=== PATIENT | female | born 1955 | race Caucasian/White ===

== ENCOUNTER → 2017-02-14 | Outpatient (CLI) | payer OTHER ==
[~2017-02-14] MED LIST: CALC500C3 PO; LOSA1TAB38 PO; MELA3TAB7 PO; MOBIC PO; NRN/300 PO; OXYC-106 PO; OXYC-643 PO; PEDICHW50 PO; RXC/5 PO
[2017-02-14 12:48] LABS: ALT/SGPT 22 U/L (12-78); AST/SGOT 19 U/L (15-37); BLOOD UREA NITROGEN 16 mg/dl (7-18); BUN/CREATININE RATIO 17.6 (10-20); CALCIUM 9.2 mg/dl (8.5-10.1); CARBON DIOXIDE 29 mmol/L (21-32); CHLORIDE 110 mmol/L (98-107); GLUCOSE 93 mg/dl (70-99); POTASSIUM 4.1 mmol/L (3.5-5.1); SODIUM 143 mmol/L (136-145)
[2017-02-14 12:52] LABS: ALB/GLOB RATIO 1.2 (0.9-2); ALKALINE PHOSPHATASE 65 U/L (45-117); CHOLESTEROL 210 mg/dl (0-200); CHOLESTEROL/HDL RATIO 3.3; HDL CHOLESTEROL 63 mg/dl; LDL CHOLESTEROL CALCULATED 128 mg/dl; TRIGLYCERIDES 96 mg/dl (0-150); VERY LOW DENSITY LIPOPROT CALC 19 mg/dl
== END | disposition home or self-care (01) ==
LOC: C.LABBFT 07:59
PROVIDERS: ATTEND Nurse Practitioner
DX: E78.5 Hyperlipidemia, unspecified (principal)

== ENCOUNTER → 2017-05-21 | Outpatient (CLI) | payer OTHER ==
[~2017-05-21] MED LIST changes: +OXYC-57 PO
--- NOTE | 2017-05-21 14:48 | MAMMOGRAPHY REPORT ---
BILATERAL DIGITAL SCREENING MAMMOGRAM TOMOSYNTHESIS WITH CAD PRE-REDUCTION MAMMOPLASTY: 05/21/2017 CLINICAL HISTORY: Asymptomatic Pre-Reduction. TECHNIQUE: Breast tomosynthesis in addition to standard 2D mammography was performed. Current study was also evaluated with a Computer Aided Detection (CAD) system. COMPARISON: Mammogram dated 07/22/2014. BREAST COMPOSITION: The tissue of both breasts is almost entirely fatty. FINDINGS: There are 2 stable intramammary lymph nodes in the right upper outer quadrant. A few scatt ered benign rim calcifications. No new suspicious mass, architectural distortion or cluster of micro calcifications is seen. IMPRESSION: ACR BI-RADS CATEGORY 1: NEGATIVE There is no mammographic evidence of malignancy. A 1 year screening mammogram is recommended. The pa tient will receive written notification of the results. Approximately 10% of breast cancers are not detected with mammography. A negative mammographic report should not delay biopsy if a clinically suggestive mass is present. Virginia Liu M.D. ay/:05/21/2017 14:13:41 Sausage Cooker: Jovanna IZQUIERDO(Kayy)(Lucretia)(NILDA), [facility] letter sent: Normal 1/2 BI-RADS Code: ACR BI-RADS Category 1: Negative
== END | disposition home or self-care (01) ==
LOC: C.MAMM 12:57
PROVIDERS: ATTEND Plastic Surgery
DX: Z12.31 Encounter for screening mammogram for malignant neoplasm of breast (principal)

== ENCOUNTER → 2017-06-02 | Outpatient (CLI) | payer OTHER ==
[~2017-06-02] MED LIST changes: -OXYC-57 PO
--- NOTE | 2017-06-02 13:47 | DIAGNOSTIC IMAGING REPORT ---
LUMBAR SPINE MRI HISTORY: Back pain. Neuropathy. LOW BACK PAIN, LUMBAR STENOSIS TECHNIQUE: Multiplanar multisequence MRI of the lumbar spine was performed without the use of contrast. COMPARISON: 08/17/2014 FINDINGS: For the purpose of the report the L5-S1 disc space will be located on axial image 22 of 25. Somewhat progressive degenerative disc change throughout the entire lumbar region. This is most prominent at L4-L5. Mild reactive edema of the associated vertebral endplates. There is minimal anterolisthesis of L5 on S1. This is unchanged in the prior study. L1-L2: Mild broad-based disc bulge similar compared to the prior study. L2-L3: No significant central canal or neural foraminal narrowing. L3-L4: Minimal broad-based disc bulge. L4-L5: Broad-based bulging disc with moderate narrowing of the left neuroforamina. This is unchanged L5-S1: Minimal disc bulge unchanged IMPRESSION: 1. L5 spondylolysis with a minimal grade 1 anterolisthesis. 2. This is stable and unchanged from the prior study. 3. Broad-based bulging disc L4-L5 with mild narrowing left neuroforamina. This is unchanged from the prior study. 4. No evidence for significant spinal stenosis Electronically signed by: Sandoval Phipps M.D. 06/02/2017 1:45 PM Dictated Date/Time: 06/02/2017 1:38 PM
== END | disposition home or self-care (01) ==
LOC: C.MRI 12:11
PROVIDERS: ATTEND Nurse Practitioner
DX: M48.06 Spinal stenosis, lumbar region (principal); M51.26 Other intervertebral disc displacement, lumbar region

== ENCOUNTER 2017-08-27 05:20 | Observation (INO) | payer OTHER ==
[2017-08-14 08:18] VITALS: BMI 36.0
--- NOTE | 2017-08-22 14:04 | PAT Medication Instructions ---
Service Date Aug 22, 2017. Current Home Medication List Calcium Carbonate (Tums), 1 DOSE PO UD PRN for reflux Gabapentin (Neurontin), 300 MG PO TID Losartan Potassium (Cozaar), 100 MG PO QAM Oxycodone/Acetaminophen 5MG/325MG (Oxycodone/Acetaminophen 5MG/325MG), 1 TABLET PO Q4H PRN for Pain Pediatric Multiple Vitamin W/ (Flintstones Chewable), 1 TAB PO QAM Medication Instructions For Your Scheduled Surgery - Hold the following medications the morning of surgery: Calcium Carbonate (Tums), 1 DOSE PO UD PRN for reflux Losartan Potassium (Cozaar), 100 MG PO QAM Pediatric Multiple Vitamin W/ (Flintstones Chewable), 1 TAB PO QAM - Take the following medications the morning of surgery with a sip of water: Gabapentin (Neurontin), 300 MG PO TID Oxycodone/Acetaminophen 5MG/325MG (Oxycodone/Acetaminophen 5MG/325MG), 1 TABLET PO Q4H PRN for Pain (if needed, may take up to four hours before surgery) - Take the following medications as scheduled the night before surgery: Gabapentin (Neurontin), 300 MG PO TID If you have any questions please call us at [phone] or [phone] or [phone]
[2017-08-22 14:22] LABS: BASO % 0.7 %; BASO ABS # 0.06 K/uL (0-0.2); COMPLETE YES; EOS % 4.4 %; HEMATOCRIT 42.7 % (37-47); IG% 0.2 %; LYMPH % 19.7 %; LYMPH ABS # 1.66 K/uL (1.2-3.4); MEAN CELL VOLUME 86.8 fL (80-100); MEAN CORPUSCULAR HEMOGLOBIN 29.7 pg (25-34); MEAN CORPUSCULAR HGB CONC 34.2 g/dl (32-36); MEAN PLATELET VOLUME 10.2 fL (7.4-10.4); MONO % 8.3 %; NEUT % 66.7 %; PLATELET COUNT 267 K/uL (130-400); RED BLOOD COUNT 4.92 M/uL (4.2-5.4); WHITE BLOOD COUNT 8.41 K/uL (4.8-10.8)
[2017-08-22 14:30] LABS: BUN/CREATININE RATIO 19.2 (10-20); CALCIUM 9.6 mg/dl (8.5-10.1); CREATININE 0.9 mg/dl (0.60-1.20); POTASSIUM 4.1 mmol/L (3.5-5.1)
[2017-08-27] VITALS (8 sets, daily range): BP systolic 111–135; BP diastolic 67–82; PULSE 59–69; TEMP 36.4–36.8; O2SAT 96–100; Ht 154.9 cm; Wt 85.9 kg
[~2017-08-27] VITALS: Ht 154.9 cm; Wt 85.9 kg
[~2017-08-27 05:20] MED LIST changes: -MELA3TAB7 PO; -MOBIC PO; -OXYC-106 PO; -RXC/5 PO
[2017-08-27] MEDS ORDERED: LACTATED RINGER'S 1000ML 1,000 ML IV SCH (06:00)
[2017-08-27] MEDS ORDERED: CEFAZOLIN 2000 MG/60 ML D5W IV SCH (06:00)
[2017-08-27] MEDS ORDERED: ENOXAPARIN 40 MG/0.4 ML SYR SQ SCH (06:00)
--- NOTE | 2017-08-27 06:47 | History & Physical Bridge Note ---
H&P Re-Evaluation Bridge Note: I have examined the patient, reviewed the History & Physical and in the interval since the performance of the History & Physical I have noted the following changes of clinical significance: No changes noted
[2017-08-27] MEDS ORDERED: BUPIVACAINE 0.25% 30 ML VIAL ONE (06:55)
[2017-08-27] MEDS ORDERED: LIDOCAINE/EPINEPHRINE 1% 20 ML VIAL ONE (06:55)
[2017-08-27] MEDS ORDERED: ONDANSETRON INJ 2 MG/ML 2 ML VIAL ONE ×2 (07:17→11:15)
[2017-08-27] MEDS ORDERED: ROCURONIUM BROMIDE 10 MG/ML 5 ML VIAL IV ONE (07:17)
[2017-08-27] MEDS ORDERED: NEOSTIGMINE METHYLSULFATE 5 MG/5 ML SYR ONE (07:17)
[2017-08-27] MEDS ORDERED: DEXAMETHASONE SOD INJ 4 MG/ML VIAL ONE (07:17)
[2017-08-27] MEDS ORDERED: FENTANYL CITRATE INJ 50 MCG/1 ML 2 ML VIAL ONE ×2 (07:17→11:24)
[2017-08-27] MEDS ORDERED: PROPOFOL IV EMULSION 10 MG/ML 20 ML VIAL IV ONE (07:17)
[2017-08-27] MEDS ORDERED: LIDOCAINE HCL 2% 2 ML VIAL (20MG/ML) ONE (07:17)
[2017-08-27] MEDS ORDERED: GLYCOPYRROLATE INJ 0.2 MG/ML VIAL ONE (07:17)
[2017-08-27] MEDS ORDERED: MIDAZOLAM HCL 1 MG/ML 2ML VIAL ONE (07:17)
[2017-08-27] MEDS ORDERED: HYDROmorphone INJ 2 MG/ML SYR/VIAL ONE (08:13)
[2017-08-27] MEDS ORDERED: ACETAMINOPHEN 1000 MG/100 ML IV IV ONE (09:19)
--- NOTE | 2017-08-27 11:16 | [facility] Post Operative Brief Note ---
Immediate Operative Summary Operative Date Aug 27, 2017. Pre-Operative Diagnosis Breast Hypertrophy Post-Operative Diagnosis same Procedure(s) Performed Bilateral Breast Reduction Surgeon Dr. Olsen Performance Improvement Director Surgeon(s) none Estimated Blood Loss 50 ML Findings bilateral NAC's pink and viable Specimens fresh a. Left Breast Tissue 640g- Out of room at: 0911 b. Right Breast Tissue 360g- Out of room at: 1029 Drains JPx2 Anesthesia GET Complication(s) None Disposition Recovery Room / PACU
[2017-08-27] MEDS ORDERED: OXYC-643 PO (11:26)
--- NOTE | 2017-08-27 11:29 | Discharge Instructions ---
Discharge Instructions Date of Service Aug 27, 2017. Admission Reason for Admission: Bilateral Symptomatic Macromastia Discharge Discharge Diagnosis / Problem: macromastia Discharge Goals Goal(s): Decrease discomfort, Improve function Activity Recommendations Activity Limitations: per Instructions/Follow-up section . Instructions / Follow-Up Instructions / Follow-Up ACTIVITY RECOMMENDATIONS: __Normal activities _x_No bending, lifting or straining __No driving _x_Driving allowed when you are off pain medications _x_Walking permitted __You should have help at home for ___ days DRESSINGS: __No dressings required _x_Keep dressings dry/in place until first office visit __Remove dressings ___ and leave dressings off __Apply ice ___ days __Remove dressings and reapply garment __Apply antibiotic ointment (Bacitracin, Neosporin, etc) to wounds 3-4 times/ day for 10 days BATHING: _x_Keep dressings dry __xSponge bathing permitted __Showering permitted _x_No swimming, hot tubs or soaking in a tub MEDICATIONS: Resume previous medications unless instructed otherwise by your surgeon. _x_Do not use aspirin, Motrin, Advil or Ibuprofen as these may promote bleeding. Please use Tylenol. _x_Prescription(s) provided: Percocet (20 tabs to be used to supplement usual Percocet dose) OTHER INSTRUCTIONS: __Record drain output 2-3 times per day SPECIAL CARE INSTRUCTIONS: * It is normal to have a mild fever after surgery. If your temperature is higher than 101.5 degrees F, please call the office at [phone]. * Constipation is a typical side effect of pain medication. An over-the- counter stool softener will help relieve this. * Leaking around surgical drains may occur and should not cause concern. Sometimes these drains become clogged. If this happens, remove the bulb and milk the clot out of the tube, then replace the bulb. * Drainage from wounds after liposuction is normal and should be expected. Garments will become soiled. You should protect furniture and bedding. This drainage should mostly subside within 2-3 days. Leave garments in place unless instructed to remove them. * If you have unusual drainage from a wound or are concerned you have an infection or have any questions or concerns, please call the office at [phone]. FOLLOW UP VISIT: If not already scheduled, please call the office, , when you return home after surgery to schedule an appointment to be seen in _2__ days. Current Hospital Diet Patient's current hospital diet: Regular Diet Discharge Diet Recommended Diet: Regular Diet Procedures Procedures Performed: Bilateral Breast Reduction Pending Studies Studies pending at discharge: no Medical Emergencies . Who to Call and When: Medical Emergencies: If at any time you feel your situation is an emergency, please call 911 immediately. . Non-Emergent Contact Non-Emergency issues call your: Primary Care Provider, Surgeon Call Non-Emergent contact if: temperature is above 101.5, wound has increased drainage, wound has increased redness . "Provider Documentation" section prepared by Carolynn Olsen. . VTE Core Measure Inpt VTE Proph given/why not?: Enoxaparin (Lovenox) [place] Drug Monitoring Program Search Results: patient reviewed within database, see additional documentation (Patient has pain contract with [place] office-Dr. Mays called us and said ok to give additional Percocet. No other issues identified.)
[2017-08-27] MEDS ORDERED: MoRPHine SULFATE 2 MG/ML CARP IV PRN (11:30)
[2017-08-27] MEDS ORDERED: PROMETHAZINE HCL INJ 12.5 MG in SODIUM CHLORIDE 0.9% 50ML 50 ML IV PRN ×2 (11:30→11:45)
[2017-08-27] MEDS ORDERED: MoRPHine SULFATE 4 MG/ML 1 ML CARP\\VIAL IV PRN ×2 (11:30)
[2017-08-27] MEDS ORDERED: ONDANSETRON INJ 2 MG/ML 2 ML VIAL IV PRN ×2 (11:30→11:45)
[2017-08-27] MEDS ORDERED: DiphenhydrAMINE HCL 50 MG/ML VIAL IV PRN (11:30)
[2017-08-27] MEDS ORDERED: OXYCODONE/ACETAMINOPHEN 5-325 TAB PO PRN (11:30)
[2017-08-27] MEDS ORDERED: OXAZEPAM 10MG CAP PO PRN (11:30)
[2017-08-27] MEDS ORDERED: CALCIUM CARBONATE 500 MG CHEWABLE PO PRN (11:30)
[2017-08-27] MEDS ORDERED: NALOXONE HCL 0.4 MG/1 ML VIAL/CARP IV PRN (11:45)
[2017-08-27] MEDS ORDERED: ATROPINE SULFATE 0.1 MG/ML 5ML SYR IV PRN (11:45)
[2017-08-27] MEDS ORDERED: EpHEDrine SULFATE INJ 50 MG/ML AMP IV PRN (11:45)
[2017-08-27] MEDS ORDERED: FLUMAZENIL 0.1 MG/1 ML 10 ML VIAL IV PRN (11:45)
[2017-08-27] MEDS ORDERED: LABETALOL HCL IV 5 MG/ML 20ML IV PRN (11:45)
[2017-08-27] MEDS: HYDROmorphone INJ 1 MG/ML SYR IV PRN ×4 (11:48→12:10)
--- NOTE | 2017-08-27 12:19 | Anesthesiology Progress Note ---
Anesthesia Post Op Note Date & Time Aug 27, 2017 at 12:19 Vital Signs Pain Intensity: 3 Vital Signs Past 12 Hours Date Time Temp Pulse Resp B/P (MAP) Pulse Ox O2 Delivery O2 Flow Rate FiO2 08/27/17 12:10 36.1 62 14 142/79 100 Nasal Cannula 2 08/27/17 12:00 67 17 145/78 100 Nasal Cannula 2 08/27/17 11:50 71 16 137/76 100 Oxymask 5 08/27/17 11:40 69 16 144/77 100 Oxymask 5 08/27/17 11:31 36.0 81 16 142/76 100 Oxymask 10 08/27/17 05:48 36.8 69 18 121/67 (85) 97 Room Air Notes Mental Status: alert / awake / arousable, participated in evaluation Pt Amnestic to Procedure: Yes Nausea / Vomiting: adequately controlled Pain: adequately controlled Airway Patency, RR, SpO2: stable & adequate BP & HR: stable & adequate Hydration State: stable & adequate Anesthetic Complications: no major complications apparent
--- NOTE | 2017-08-27 12:51 | OPERATIVE REPORT ---
DATE OF OPERATION: 08/27/2017 PREOPERATIVE DIAGNOSIS: Bilateral symptomatic macromastia. POSTOPERATIVE DIAGNOSIS: Same. PROCEDURE: Bilateral reduction mammoplasty. SURGEON: Dr. Carolynn Olsen. SHREDDED FILLER MACHINE WRAPPER LAYER: KATRIN Denny. ANESTHESIA: General. COMPLICATIONS: None. INDICATION FOR THE PROCEDURE: The patient is a 62-year-old female who presented to my office with complaints of back, neck and shoulder pain related to her large breasts which have failed to respond to conservative therapy. After discussion, she elected to proceed with bilateral reduction mammoplasty. BRIEF DESCRIPTION OF THE PROCEDURE: The risks, benefits and alternatives of the procedure were explained to the patient who agreed and signed consent. She was identified and marked in the preoperative holding area. She was brought to the operating room where she was positioned supine and placed under general anesthesia without incident. Surgical site was prepped and draped sterilely. A time-out procedure was performed. I began with the left side. Markings were reassessed and a 7 cm pedicle was marked. 1% lidocaine with epinephrine was used to anesthetize the planned incisions. A 15 mm cookie cutter was used to circumscribe the nipple-areolar complex. The previously marked 7 cm pedicle was incised using a 15 blade scalpel and deepithelialized. I began with the medial dissection of the pedicle using electrocautery. Cautery was used to incise through dermis and breast parenchyma down to the chest wall, taking care not to undermine the pedicle during dissection. A similar procedure was undertaken on the lateral aspect of the pedicle again taking care not to undermine. Lastly, the pedicle was dissected out superiorly using electrocautery and this was carried down to the chest wall as well. I then began with excision of the medial breast tissue followed by lateral aspect of the breast tissue and surrounding keyhole incision. A 15 blade scalpel was used to make the inframammary fold incision and electrocautery was used to deepen the incision through dermis and breast parenchyma. Dissection was then carried superiorly to the level of the superior incision. Superior incision was then incised using a 15 blade scalpel and again dissected using electrocautery. This was undertaken laterally and then around the keyhole portion of the incision. Care was taken to leave some fat on the lateral pectoralis fascia in order to protect the T4 intercostal nerve. Hemostasis was achieved with electrocautery. Specimen was removed in its entirety and passed off for weighing. Additional resection from underneath the flap was undertaken until a maximal resection weight of 640 grams was achieved on the left and there was uniform pedicle and flap. The wound was irrigated with normal saline. Hemostasis was achieved with electrocautery. 0.25% Marcaine plain was used to anesthetize the incisions as well as the pectoralis fascia. A 15 Hebrew Hernan drain was brought out through a separate stab incision. The nipple-areolar complex was advanced into the keyhole using 2-0 Vicryl deep dermal suture. The wound was closed first in a lateral to mid breast direction using 2-0 Vicryl deep dermals and then medial to mid breast using 2-0 Vicryl deep dermal sutures. Vertical limb was also approximated using 2-0 Vicryl deep dermal sutures. The nipple-areolar complex was inset using 2-0 Vicryl deep dermals. Next, the superficial dermal layer was closed using 2-0 PDO running Quill suture along the inframammary fold and 3-0 PDS interrupted dermal sutures for the vertical limb and nipple-areolar complex. Lastly 3-0 Monocryl running subcuticular suture was placed. A similar procedure was undertaken on the smaller right side with maximal resection weight of 630 grams. At the end of the case, both nipple-areolar complexes were pink and viable without evidence of vascular compromise. The breasts appeared reasonably symmetric. Dermabond Prineo was applied along the inframammary fold and vertical limb and Dermabond was placed around the nipple-areolar complex. Following this, dry dressings and a surgical bra were placed. The patient was awakened and transferred to recovery room in satisfactory condition. I attest to the content of the Intraoperative Record and any orders documented therein. Any exception s are noted below.
[2017-08-27] MEDS: D5W AND 1/2NSS 1,000 ML IV SCH ×2 (13:59→19:31)
[2017-08-27] MEDS ORDERED: IV FLUIDS COMPLETED PRN (14:00)
--- NOTE | 2017-08-27 14:10 | Progress Note ---
Progress Note Date of Service Aug 27, 2017. Progress Note Post op check Doing ok; complains of 9/10 pain afebrile VSS appears comfortable after morphine bilateral NACs pink and viable, breasts soft without hematoma JPs serosanguinous 20 cc each since OR Stable post op pain control
[2017-08-27] MEDS: OXYCODONE/ACETAMINOPHEN 5-325 TAB PO PRN ×2 (14:49→19:42)
[2017-08-27] MEDS: GABAPENTIN 300 MG CAP PO SCH ×2 (15:52→20:42)
[2017-08-27] MEDS: CEFAZOLIN IV 2,000 MG in DEXTROSE 5% 50ML 50 ML IV SCH (15:52)
[2017-08-27] MEDS ORDERED: NURSING VERBAL MED ORDER ONE (17:30)
[2017-08-27] MEDS ORDERED: HYDROmorphone INJ 0.5 MG/0.5 ML SYR IV PRN (17:45)
[2017-08-27] MEDS ORDERED: HYDROmorphone INJ 1 MG/ML SYR IV PRN (17:45)
[2017-08-28] MEDS: CEFAZOLIN IV 2,000 MG in DEXTROSE 5% 50ML 50 ML IV SCH (00:35)
[2017-08-28] MEDS: OXYCODONE/ACETAMINOPHEN 5-325 TAB PO PRN ×2 (00:36→07:26)
[2017-08-28] MEDS: D5W AND 1/2NSS 1,000 ML IV SCH ×2 (03:15→04:13)
[2017-08-28 03:45] VITALS: BP 109/75; PULSE 62; TEMP 36.5; O2SAT 99
--- NOTE | 2017-08-28 07:13 | Progress Note ---
Progress Note Date of Service Aug 28, 2017. Progress Note POD #1 Complained of severe pain yesterday, now relieved with 2 Percocet, reports mostly on left side afebrile VSS JPs 45/95 yesterday, scant this am, serosanguinous Bilateral NACs pink and viable left medial breast with significant ecchymosis, tenderness, but soft, all skin viable Doing well postop Wants to be discharged Pain script provided as per [place] office request Dressings changed Will follow up in office tomorrow
[2017-08-28 07:18] VITALS: BP 113/60; PULSE 50; TEMP 36.5; O2SAT 92
[2017-08-28 08:39] VITALS: BP 113/60; PULSE 50; TEMP 36.5; O2SAT 92
[2017-08-28] MEDS: GABAPENTIN 300 MG CAP PO SCH (08:56)
[2017-08-28] MEDS ORDERED: MULTIVITAMIN TAB PO SCH (09:00)
[2017-08-28] MEDS ORDERED: FLINTSTONES COMPLETE CHEWABLE TAB PO SCH (09:00)
[2017-08-28] MEDS ORDERED: LOSARTAN POTASSIUM 50 MG TAB PO SCH (09:00)
[2017-08-28] MEDS ORDERED: ENOXAPARIN 40 MG/0.4 ML SYR SQ SCH (09:00)
--- NOTE | 2017-08-29 19:06 | DISCHARGE SUMMARY ---
NOTICE TO RECEIVING REPUBLICAN/AGENCY This information is strictly Confidential and protected under [place] law. [place] law prohibits you from making any further disclosure of this information unless further disclosure is expressly permitted by the written consent of the person to whom it pertains or is authorized by law. A general authorization for the release of medical or other information is not sufficient for this purpose. Hospital accepts no responsibility if the information is made available to any other person, INCLUDING THE PATIENT. PREOPERATIVE DIAGNOSIS: Bilateral symptomatic macromastia. DISCHARGE DIAGNOSIS: Same. SECONDARY DIAGNOSES: Arthritis, depression, hyperlipidemia, hypertension, lumbar stenosis with neurogenic claudication, degenerative disc disease, obesity, history of alcoholism, history of opioid dependence, with narcotic contract through the [place] primary care office. PROCEDURES: The patient underwent bilateral reduction mammoplasty on the day of admission. CONSULTATIONS: None. BRIEF DESCRIPTION OF HOSPITAL COURSE: The patient was admitted for observation following bilateral reduction mammoplasty. The procedure itself had no complications and she was transferred to the medical floor postoperatively. She did complain of pain that was uncontrolled by morphine and Percocet and therefore, she did receive Dilaudid. Drains were removed prior to discharge and she was discharged home in satisfactory condition with some ecchymosis of the breasts without evidence of hematoma and with office followup scheduled. She was provided a prescription for Percocet 20 pills, and [place] office was made aware of this. Otherwise, she should resume all home medications. Instructions were provided prior to discharge.
== END 2017-08-28 09:46 | disposition home or self-care (01) ==
LOC: C.ACU 05:20 → C.MSN 11:19 → ENRESERV 12:33
PROVIDERS: ADMIT Plastic Surgery; ATTEND Plastic Surgery
DX: N62 Hypertrophy of breast (principal); I10 Essential (primary) hypertension; E78.5 Hyperlipidemia, unspecified; M15.9 Polyosteoarthritis, unspecified; M54.2 Cervicalgia; F41.8 Other specified anxiety disorders; M48.06 Spinal stenosis, lumbar region; E66.9 Obesity, unspecified; F10.21 Alcohol dependence, in remission; Z87.891 Personal history of nicotine dependence; Z79.899 Other long term (current) drug therapy

== ENCOUNTER 2017-09-12 10:29 | Emergency (ER) | payer OTHER ==
[~2017-09-12] VITALS: Ht 154.9 cm; Wt 86.5 kg
[2017-09-12 10:32] VITALS: TEMP 37
[2017-09-12] MEDS ORDERED: OXYC-57 PO (10:53)
--- NOTE | 2017-09-12 11:32 | EMERGENCY ROOM VISIT NOTE ---
History Report prepared by Fariha: Theo Sibley Under the Supervision of: Dr. Felix Bush M.D. First contact with patient: 10:58 Chief Complaint: LEG PAIN,LEG INJURY Stated Complaint: SHARP PAINS 2 DAYS AGO IN LOWER GROIN,BOTH LEGS History of Present Illness The patient is a 62 year old female who presents to the Emergency Room with complaints of constant leg pain for the past two days. The patient states that two days ago she was lying on her couch, and she was having some leg cramping in her groin, inside of her legs, and down her legs. She states that she could not stand or crawl for about 5 minutes afterwards. The patient states that earlier today she was having soreness again, and it feels as if she was running yesterday. The patient additionally states that she recently had surgery, and she called her doctor, and they told her to come in for evaluation. She additionally notes that she has not been eating very well recently, and she has chronic back pain. Pt denies LOC, headache, fevers, chills, diaphoresis, visual changes, neck pain, chest pain, breathing difficulties, nausea, vomiting, abdominal pain, increased back pain, leg swelling, melena, hematochezia, urinary symptoms, numbness, weakness, lymphadenopathy, rash, or other complaints. Source of History: patient Onset: two days ago Position: leg Quality: other (soreness) Timing: constant Review of Systems See HPI for pertinent positives and negatives. A total of ten systems were reviewed and were otherwise negative. Past Medical & Surgical Medical Problems: (1) Cervical Spinal Stenosis (2) Chronic low back pain (3) Depression (4) Depression (5) Idiopathic Scoliosis (6) Macromastia Family History Cancer FH: heart disease Hypertension Social History Smoking Status: Former Smoker Alcohol Use: none Drug Use: cocaine, marijuana Marital Status: Housing Status: lives alone Occupation Status: disabled Current/Historical Medications Scheduled Gabapentin (Neurontin), 300 MG PO TID Losartan Potassium (Cozaar), 100 MG PO QAM Pediatric Multiple Vitamin W/ (Flintstones Chewable), 1 TAB PO QAM Scheduled PRN Calcium Carbonate (Tums), 1 DOSE PO UD PRN for reflux Oxycodone/Acetaminophen 5MG/325MG (Percocet 5MG/325MG), 1 TABLET PO Q4H PRN for Pain Allergies Coded Allergies: No Known Allergies (Verified , 09/12/17) Physical Exam Vital Signs Date Time Temp Pulse Resp B/P (MAP) Pulse Ox O2 Delivery O2 Flow Rate FiO2 09/12/17 16:42 68 17 130/77 97 09/12/17 16:20 68 17 130/77 97 Room Air 09/12/17 14:12 58 17 130/77 99 Room Air 09/12/17 12:44 55 15 155/69 100 Room Air 09/12/17 12:22 59 09/12/17 11:46 96 Room Air 09/12/17 11:46 62 15 105/63 96 Room Air 09/12/17 10:32 37.0 65 18 136/73 100 Room Air Physical Exam GENERAL: Awake, alert, well-appearing, in no distress HENT: Normocephalic, atraumatic. Oropharynx unremarkable. EYES: Normal conjunctiva. Sclera non-icteric. NECK: Supple. No nuchal rigidity. FROM. No JVD. RESPIRATORY: Clear to auscultation. CARDIAC: Regular rate, normal rhythm. Extremities warm and well perfused. Pulses equal. ABDOMEN: Soft, non-distended. No tenderness to palpation. No rebound or guarding. No palpable masses. RECTAL: Deferred. MUSCULOSKELETAL: Chest examination reveals no tenderness. The back is symmetrical on inspection without obvious abnormality. There is no CVA tenderness to palpation. No joint edema. LOWER EXTREMITIES: Mild tenderness to the medial thighs. Calves are non-tender. Good distal pulses. Calves are equal size bilaterally. No edema. No discoloration. NEURO: Normal sensorium. No sensory or motor deficits noted. SKIN: No rash or jaundice noted. Medical Decision & Procedures ER Provider Diagnostic Interpretation: Radiology results as stated below per my review and radiologist interpretation: VENOUS DOPPLER LWR EXT BILA CLINICAL HISTORY: 62 years-old Female presenting with bilateral leg pain, recent surgery. TECHNIQUE: Real-time grayscale and color and spectral Doppler ultrasound imaging of the veins of the bilateral lower extremities was performed. Compression and augmentation were also utilized. COMPARISON: None. FINDINGS: Right: Common femoral vein: Patent. Femoral vein: Patent. Greater saphenous vein: Patent. Popliteal vein: Patent. Calf veins: Patent. Left: Common femoral vein: Patent. Femoral vein: Patent. Greater saphenous vein: Patent. Popliteal vein: Patent. Calf veins: Patent. Other: None. IMPRESSION: No evidence of deep venous thrombosis. Electronically signed by: Eric Cruz M.D. 09/12/2017 2:09 PM Dictated Date/Time: 09/12/2017 2:07 PM Laboratory Results 09/12/17 11:21 Red Blood Count 4.16, Mean Corpuscular Volume 88.9, Mean Corpuscular Hemoglobin 29.3, Mean Corpuscular Hemoglobin Concent 33.0, Mean Platelet Volume 9.9, Neutrophils (%) (Auto) 66.9, Lymphocytes (%) (Auto) 19.4, Monocytes (%) (Auto) 8.7, Eosinophils (%) (Auto) 4.2, Basophils (%) (Auto) 0.7, Neutrophils # (Auto) 4.60, Lymphocytes # (Auto) 1.34, Monocytes # (Auto) 0.60, Eosinophils # (Auto) 0.29, Basophils # (Auto) 0.05 09/12/17 11:21 Test 09/12/17 11:10 09/12/17 11:21 Urine Color YELLOW Urine Appearance CLEAR (CLEAR) Urine pH 7.0 (4.5-7.5) Urine Specific Labelle 1.015 (1.000-1.030) Urine Protein NEG (NEG) Urine Glucose (UA) NEG (NEG) Urine Ketones NEG (NEG) Urine Occult Blood NEG (NEG) Urine Nitrite NEG (NEG) Urine Bilirubin NEG (NEG) Urine Urobilinogen NEG (NEG) Urine Leukocyte Esterase SMALL (NEG) Urine WBC (Auto) 1-5 /hpf (0-5) Urine RBC (Auto) 0-4 /hpf (0-4) Urine Hyaline Casts (Auto) 0 /lpf (0-5) Urine Epithelial Cells (Auto) 5-10 /lpf (0-5) Urine Bacteria (Auto) NEG (NEG) White Blood Count 6.89 K/uL (4.8-10.8) Red Blood Count 4.16 M/uL (4.2-5.4) Hemoglobin 12.2 g/dL (12.0-16.0) Hematocrit 37.0 % (37-47) Mean Corpuscular Volume 88.9 fL (80-100) Mean Corpuscular Hemoglobin 29.3 pg (25-34) Mean Corpuscular Hemoglobin Concent 33.0 g/dl (32-36) Platelet Count 358 K/uL (130-400) Mean Platelet Volume 9.9 fL (7.4-10.4) Neutrophils (%) (Auto) 66.9 % Lymphocytes (%) (Auto) 19.4 % Monocytes (%) (Auto) 8.7 % Eosinophils (%) (Auto) 4.2 % Basophils (%) (Auto) 0.7 % Neutrophils # (Auto) 4.60 K/uL (1.4-6.5) Lymphocytes # (Auto) 1.34 K/uL (1.2-3.4) Monocytes # (Auto) 0.60 K/uL (0.11-0.59) Eosinophils # (Auto) 0.29 K/uL (0-0.5) Basophils # (Auto) 0.05 K/uL (0-0.2) RDW Standard Deviation 47.1 fL (36.4-46.3) RDW Coefficient of Variation 14.4 % (11.5-14.5) Immature Granulocyte % (Auto) 0.1 % Immature Granulocyte # (Auto) 0.01 K/uL (0.00-0.02) Prothrombin Time 10.4 SECONDS (9.0-12.0) Prothromb Time International Ratio 1.0 (0.9-1.1) Activated Partial Thromboplast Time 27.1 SECONDS (21.0-31.0) Partial Thromboplastin Ratio 1.0 Anion Gap 6.0 mmol/L (3-11) Est Creatinine Clear Calc Drug Dose 66.1 ml/min Estimated GFR () 82.2 Estimated GFR (Non- 70.9 BUN/Creatinine Ratio 14.8 (10-20) Calcium Level 9.2 mg/dl (8.5-10.1) Magnesium Level 2.1 mg/dl (1.8-2.4) Total Bilirubin 0.5 mg/dl (0.2-1) Direct Bilirubin 0.1 mg/dl (0-0.2) Aspartate Amino Transf (AST/SGOT) 53 U/L (15-37) Alanine Aminotransferase (ALT/SGPT) 29 U/L (12-78) Alkaline Phosphatase 103 U/L (45-117) Total Creatine Kinase 1085 U/L (26-192) Total Protein 7.7 gm/dl (6.4-8.2) Albumin 4.0 gm/dl (3.4-5.0) Thyroid Stimulating Hormone (TSH) 1.290 uIu/ml (0.300-4.500) Laboratory results reviewed by me Medications Administered Medications (Trade) Dose Ordered Sig/Armin Route Start Time Stop Time Status Last Admin Dose Admin Oxycodone/ Acetaminophen (Percocet 5-325mg Tab) 1 tab NOW ONCE PO 09/12/17 13:00 09/12/17 13:01 DC 09/12/17 13:11 1 TAB Gabapentin (Neurontin Cap) 300 mg NOW STAT PO 09/12/17 12:51 09/12/17 12:53 DC 09/12/17 13:11 300 MG Sodium Chloride 1,000 ml @ 999 mls/hr Q1H1M STAT IV 09/12/17 14:55 09/12/17 15:55 DC 09/12/17 14:55 999 MLS/HR ECG Indication: other (leg pain) Rate (beats per minute): 60 Rhythm: normal sinus Findings: no acute ischemic change, no ectopy ED Course 1058: The patient was evaluated in room C4. A complete history and physical exam was performed. 1251: Neurontin Cap 300mg PO 1300: Percocet 5-325mg PO 1435: I reevaluated the patient, and she was doing well. 1455: Sodium Chloride 1000 ml @ 999 mls/hr IV 1640: I reevaluated the patient. Discussed results and discharge instructions: She verbalized understanding and agreement. The patient is ready for discharge. Medical Decision Triage Nursing notes reviewed. The patient's presentation and history were concerning for leg pain. Etiologies such as muscle cramps, myalgias, myositis, DVT, infection, trauma, idiopathic, vascular, as well as others were entertained. The patient was evaluated. Physical examination was benign. No saddle anesthesia. She had good strength in the lower extremity. No edema. Good pulses. There is no signs of cellulitis. The patient had some mild tenderness to the medial upper legs bilaterally. She does have chronic back issues. She denies any urinary symptoms. She has no abdominal findings. Blood work and imaging were ordered. The patient had unremarkable CBC and chem panel. She had a slight elevation of her total CK. She does know pretty intense pain a few days ago and it is getting better. She is on Neurontin and losartan which can cause rhabdomyolysis. She needs the antihypertensive. She will decrease her Neurontin. The patient will hydrate well. She had that with case management. The patient will have labs done on Friday. If she worsens in any way she will be back. I gave my usual and customary discussion regarding this issue. By the evaluation outlined above other emergent etiologies such as those listed in the differential, as well as others, were deemed relatively unlikely. The patient was educated about the findings as listed above. All questions were answered and the patient was pleased with the treatment. Return instructions were outlined and the patient was discharged in stable condition. The patient was referred to her pcp for follow-up for a recheck of the current condition. Medication Reconcilliation Current Medication List: was personally reviewed by me Blood Pressure Screening Patient's blood pressure: Normal blood pressure Impression Primary Impression: Bilateral leg pain Additional Impression: Rhabdomyolysis Scribe Attestation The scribe's documentation has been prepared under my direction and personally reviewed by me in its entirety. I confirm that the note above accurately reflects all work, treatment, procedures, and medical decision making performed by me. Departure Information Dispostion Home / Self-Care Referrals Libby Brannon, C.R.N.P. (PCP) Forms HOME CARE DOCUMENTATION FORM, IMPORTANT VISIT INFORMATION, Work Instructions Patient Instructions My [facility] Additional Instructions Decreased the Neurontin to 300 mg twice a day. Continue other medications. Drink plenty of fluids. A good gauge is if your urine is clear and your hydrating adequately. Return to the ER for worsening leg pain, dark urine, abdominal pain, vomiting, fevers, bloody stools, or as needed. FOLLOW-UP WITH your primary clinic on Friday for lab work regarding your total CK measurement to ensure that the levels are clearing. Follow-up with your primary physician next week for recheck. Problem Qualifiers
[2017-09-12 11:46] VITALS: O2SAT 96; Ht 154.9 cm; Wt 86.5 kg
[2017-09-12 11:53] LABS: BASO % 0.7 %; BASO ABS # 0.05 K/uL (0-0.2); COMPLETE YES; EOS % 4.2 %; IG% 0.1 %; LYMPH % 19.4 %; LYMPH ABS # 1.34 K/uL (1.2-3.4); MEAN CELL VOLUME 88.9 fL (80-100); MEAN CORPUSCULAR HEMOGLOBIN 29.3 pg (25-34); MEAN PLATELET VOLUME 9.9 fL (7.4-10.4); MONO % 8.7 %; NEUT % 66.9 %; PLATELET COUNT 358 K/uL (130-400); RED BLOOD COUNT 4.16 M/uL (4.2-5.4); WHITE BLOOD COUNT 6.89 K/uL (4.8-10.8)
[2017-09-12 12:06] LABS: PROTHROMBIN TIME (PATIENT) 10.4 SECONDS (9.0-12.0)
[2017-09-12 12:12] LABS: BUN/CREATININE RATIO 14.8 (10-20); CALCIUM 9.2 mg/dl (8.5-10.1); CREATININE 0.87 mg/dl (0.60-1.20); MAGNESIUM 2.1 mg/dl (1.8-2.4); POTASSIUM 3.8 mmol/L (3.5-5.1)
[2017-09-12 12:26] LABS: THYROID STIMULATING HORMONE 1.29 uIu/ml (0.300-4.500)
[2017-09-12 12:29] LABS: URINE APPEARANCE CLEAR (CLEAR); URINE BILIRUBIN NEG (NEG); URINE COLOR YELLOW; URINE NITRITE NEG (NEG); URINE SPECIFIC GRAVITY 1.015 (1.000-1.030); UROBILINOGEN NEG (NEG)
[2017-09-12 12:32] LABS: MANUAL MICROSCOPIC REQUIRED? NO; REVIEW REQ? NO
[2017-09-12] MEDS ORDERED: GABAPENTIN 300 MG CAP PO STA (12:51)
[2017-09-12] MEDS ORDERED: OXYCODONE/ACETAMINOPHEN 5-325 TAB PO ONE (13:00)
--- NOTE | 2017-09-12 14:10 | DIAGNOSTIC IMAGING REPORT ---
VENOUS DOPPLER LWR EXT BILA CLINICAL HISTORY: 62 years-old Female presenting with bilateral leg pain, recent surgery. TECHNIQUE: Real-time grayscale and color and spectral Doppler ultrasound imaging of the veins of the bilateral lower extremities was performed. Compression and augmentation were also utilized. COMPARISON: None. FINDINGS: Right: Common femoral vein: Patent. Femoral vein: Patent. Greater saphenous vein: Patent. Popliteal vein: Patent. Calf veins: Patent. Left: Common femoral vein: Patent. Femoral vein: Patent. Greater saphenous vein: Patent. Popliteal vein: Patent. Calf veins: Patent. Other: None. IMPRESSION: No evidence of deep venous thrombosis. Electronically signed by: Eric Cruz M.D. 09/12/2017 2:09 PM Dictated Date/Time: 09/12/2017 2:07 PM
[2017-09-12] MEDS ORDERED: SODIUM CHLORIDE 0.9% 1000ML 1,000 ML IV STA (14:55)
[2017-09-12 16:42] VITALS: BP 130/77; PULSE 68; O2SAT 97
== END 2017-09-12 16:40 | disposition home or self-care (01) ==
LOC: C.EDB 10:30 → C.EDC 16:40
DX: M79.605 Pain in left leg (principal); M79.604 Pain in right leg; M62.82 Rhabdomyolysis; M54.5 Low back pain; G89.29 Other chronic pain; M48.02 Spinal stenosis, cervical region; F32.9 Major depressive disorder, single episode, unspecified; M41.20 Other idiopathic scoliosis, site unspecified; N62 Hypertrophy of breast; F14.90 Cocaine use, unspecified, uncomplicated; F12.90 Cannabis use, unspecified, uncomplicated; Z87.891 Personal history of nicotine dependence; Z82.49 Family history of ischemic heart disease and other diseases of the circulatory system

== ENCOUNTER 2018-02-16 08:08 | Emergency (ER) | payer OTHER ==
[~2018-02-16] VITALS: Ht 165.1 cm; Wt 85.0 kg
[~2018-02-16 08:08] MED LIST changes: +OXYC-57 PO; -OXYC-643 PO
[2018-02-16 08:14] VITALS: TEMP 36.5; Ht 165.1 cm; Wt 85.0 kg
[2018-02-16] MEDS ORDERED: ONDANSETRON INJ 2 MG/ML 2 ML VIAL IV STA (08:19)
[2018-02-16] MEDS ORDERED: KETOROLAC TROMETHAMINE 30 MG/ML VIAL IV STA (08:19)
[2018-02-16] MEDS ORDERED: SODIUM CHLORIDE 0.9% 1000ML 1,000 ML IV STA (08:19)
[2018-02-16] MEDS: MoRPHine SULFATE 4 MG/ML 1 ML CARP\\VIAL IV PRN ×4 (08:29→10:57)
[2018-02-16 08:38] LABS: BASO % 0.3 %; BASO ABS # 0.04 K/uL (0-0.2); EOS % 0.8 %; EOS ABS # 0.11 K/uL (0-0.5); HEMATOCRIT 42.4 % (37-47); HEMOGLOBIN 14.1 g/dL (12.0-16.0); IG# 0.04 K/uL (0.00-0.02); LYMPH % 9.8 %; LYMPH ABS # 1.31 K/uL (1.2-3.4); MEAN CELL VOLUME 87.8 fL (80-100); MEAN CORPUSCULAR HEMOGLOBIN 29.2 pg (25-34); MEAN CORPUSCULAR HGB CONC 33.3 g/dl (32-36); MEAN PLATELET VOLUME 9.5 fL (7.4-10.4); MONO % 4.4 %; MONO ABS # 0.58 K/uL (0.11-0.59); NEUT % 84.4 %; NEUT ABS # 11.22 K/uL (1.4-6.5); PLATELET COUNT 320 K/uL (130-400); RED CELL DISTRIBUTION WIDTH CV 15.1 % (11.5-14.5); RED CELL DISTRIBUTION WIDTH SD 48.8 fL (36.4-46.3)
[2018-02-16 08:59] LABS: ALBUMIN 3.9 gm/dl (3.4-5.0); ALT/SGPT 18 U/L (12-78); BLOOD UREA NITROGEN 17 mg/dl (7-18); CALCIUM 9.6 mg/dl (8.5-10.1); CARBON DIOXIDE 25 mmol/L (21-32); CREATININE 1.05 mg/dl (0.60-1.20); GLUCOSE 112 mg/dl (70-99); LIPASE 131 U/L (73-393); POTASSIUM 3.8 mmol/L (3.5-5.1); SODIUM 139 mmol/L (136-145)
[2018-02-16 09:02] LABS: ALKALINE PHOSPHATASE 81 U/L (45-117); AST/SGOT 13 U/L (15-37); TOTAL PROTEIN 7.5 gm/dl (6.4-8.2)
--- NOTE | 2018-02-16 09:22 | DIAGNOSTIC IMAGING REPORT ---
ABD/PELVIS WITHOUT FOR STONE CLINICAL HISTORY: 62 years-old Female presenting with flank pain. TECHNIQUE: Multidetector CT of the abdomen and pelvis was performed without the use of intravenous contrast. IV contrast: None. A dose lowering technique was used consistent with the principles of ALARA (as low as reasonably achievable). COMPARISON: None. CT DOSE (mGy.cm): The estimated cumulative dose is 816.76 mGy.cm. 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 Lung bases: Architectural distortion of the breasts could suggest prior reduction surgery. Mosaic attenuation at the lung bases could suggest small airways disease. Normal heart size. No pericardial or pleural effusion. Liver: Normal morphology. Normal density. Multiple well-defined hypodense lesions primarily in the left hepatic lobe, indeterminate but likely hepatic cysts or hamartomas. Biliary: No gross biliary ductal dilatation allowing for noncontrast technique. Normal gallbladder. Pancreas: Normal noncontrast appearance. Spleen: Splenic calcification suggest prior granulomatous infection. Adrenal glands: Normal noncontrast appearance. Kidneys and ureters: Moderate left pelvocaliectasis and left hydroureter. An obstructing 4 mm calculus is located at the left ureterovesical junction. Left perinephric fat stranding. Nonobstructing 3 mm calculus at the lower pole the left kidney. No right renal calculi. Normal right ureter. Bladder: No bladder calculi. The bladder is under distended. Pelvic organs: Normal noncontrast appearance. Bowel: Normal appendix. No bowel obstruction. Duodenal diverticulum noted at the level of the pancreatic head. Peritoneal cavity: No free fluid or intraperitoneal gas. Lymph nodes: No gross lymphadenopathy allowing for noncontrast technique. Vasculature: Atherosclerosis of the normal caliber abdominal aorta. Abdominal wall: Normal. Musculoskeletal: Degenerative changes of the spine. Bilateral pars defects of L5. IMPRESSION: 1. Obstructing 4 mm calculus at the left ureterovesical junction with resultant moderate left hydroureteronephrosis. 2. Additional nonobstructing 3 mm calculus in the left kidney. Electronically signed by: Eric Cruz M.D. 02/16/2018 9:20 AM Dictated Date/Time: 02/16/2018 9:14 AM
[2018-02-16] MEDS ORDERED: TAMS0.4C38 PO (11:21)
[2018-02-16] MEDS ORDERED: HYDR-5688 PO (11:21)
--- NOTE | 2018-02-16 11:24 | EMERGENCY ROOM VISIT NOTE ---
History Report prepared by Maxibjoselyn: Aquiles Fofana Under the Supervision of: Dr. Marcus Tuttle D.O. First contact with patient: 08:13 Chief Complaint: ABDOMINAL PAIN Stated Complaint: ABDOMINAL PAIN History of Present Illness The patient is a 62 year old female who presents to the Emergency Room by EMS with complaints of worsening diffuse abdominal pain beginning 4 hours ago. She woke up with her pain today during the middle of the night. She states that her pain has localized to her LLQ. The patient states "I can feel a pulling in my groin". She also complains of shortness of breath, generalized weakness, and back pain. Her pain moved to her back en route. The patient denies urinary symptoms. Source of History: patient Onset: 4 hours ago Position: abdomen (LLQ) Timing: worsening Associated Symptoms: + SOB, + back pain, + weakness (generalized), No urinary symptoms Review of Systems See HPI for pertinent positives & negatives. A total of 10 systems reviewed and were otherwise negative. Past Medical & Surgical Medical Problems: (1) Cervical Spinal Stenosis (2) Chronic low back pain (3) Depression (4) Depression (5) Idiopathic Scoliosis (6) Macromastia Family History Cancer FH: heart disease Hypertension Social History Smoking Status: Former Smoker Alcohol Use: none Drug Use: cocaine, marijuana Marital Status: Housing Status: lives alone Occupation Status: disabled Current/Historical Medications Scheduled Gabapentin (Neurontin), 300 MG PO TID Losartan Potassium (Cozaar), 100 MG PO QAM Pediatric Multiple Vitamin W/ (Flintstones Chewable), 1 TAB PO QAM Scheduled PRN Calcium Carbonate (Tums), 1 DOSE PO UD PRN for reflux Oxycodone/Acetaminophen 5MG/325MG (Percocet 5MG/325MG), 1 TABLET PO Q4H PRN for Pain Allergies Coded Allergies: No Known Allergies (Verified , 02/16/18) Physical Exam Vital Signs Date Time Temp Pulse Resp B/P (MAP) Pulse Ox O2 Delivery O2 Flow Rate FiO2 02/16/18 09:59 66 16 130/86 100 Room Air 02/16/18 08:46 77 22 149/109 99 Room Air 02/16/18 08:14 36.5 77 16 202/101 100 Room Air Physical Exam CONSTITUTIONAL/VITAL SIGNS: Reviewed / noted above. GENERAL: Non-toxic in appearance. INTEGUMENTARY: Warm, dry, and [place]. HEAD: Normocephalic. EYES: without scleral icterus or trauma. ENT/OROPHARYNX: clear and moist. LYMPHADENOPATHY/NECK: Is supple without lymphadenopathy or meningismus. RESPIRATORY: Lungs clear and equal. CARDIOVASCULAR: Regular rate and rhythm. GI/ABDOMEN: Soft. LLQ tenderness to palpation. No organomegaly or pulsatile mass. No rebound or guarding. Normal bowel sounds. EXTREMITIES: Warm and well perfused. BACK: Left CVA tenderness. NEUROLOGICAL: Intact without focal deficits. PSYCHIATRIC: normal affect. MUSCULOSKELETAL: Normally developed with good muscle tone. Medical Decision & Procedures ER Provider Diagnostic Interpretation: Radiology results as stated below per my review and radiologist interpretation: ABD/PELVIS WITHOUT FOR STONE FINDINGS: [employer] topogram: Unremarkable. Lung bases: Architectural distortion of the breasts could suggest prior reduction surgery. Mosaic attenuation at the lung bases could suggest small airways disease. Normal heart size. No pericardial or pleural effusion. Liver: Normal morphology. Normal density. Multiple well-defined hypodense lesions primarily in the left hepatic lobe, indeterminate but likely hepatic cysts or hamartomas. Biliary: No gross biliary ductal dilatation allowing for noncontrast technique. Normal gallbladder. Pancreas: Normal noncontrast appearance. Spleen: Splenic calcification suggest prior granulomatous infection. Adrenal glands: Normal noncontrast appearance. Kidneys and ureters: Moderate left pelvocaliectasis and left hydroureter. An obstructing 4 mm calculus is located at the left ureterovesical junction. Left perinephric fat stranding. Nonobstructing 3 mm calculus at the lower pole the left kidney. No right renal calculi. Normal right ureter. Bladder: No bladder calculi. The bladder is under distended. Pelvic organs: Normal noncontrast appearance. Bowel: Normal appendix. No bowel obstruction. Duodenal diverticulum noted at the level of the pancreatic head. Peritoneal cavity: No free fluid or intraperitoneal gas. Lymph nodes: No gross lymphadenopathy allowing for noncontrast technique. Vasculature: Atherosclerosis of the normal caliber abdominal aorta. Abdominal wall: Normal. Musculoskeletal: Degenerative changes of the spine. Bilateral pars defects of L5. IMPRESSION: 1. Obstructing 4 mm calculus at the left ureterovesical junction with resultant moderate left hydroureteronephrosis. 2. Additional nonobstructing 3 mm calculus in the left kidney. Electronically signed by: Eric Cruz M.D. 02/16/2018 9:20 AM Laboratory Results 02/16/18 08:20 Red Blood Count 4.83, Mean Corpuscular Volume 87.8, Mean Corpuscular Hemoglobin 29.2, Mean Corpuscular Hemoglobin Concent 33.3, Mean Platelet Volume 9.5, Neutrophils (%) (Auto) 84.4, Lymphocytes (%) (Auto) 9.8, Monocytes (%) (Auto) 4.4, Eosinophils (%) (Auto) 0.8, Basophils (%) (Auto) 0.3, Neutrophils # (Auto) 11.22, Lymphocytes # (Auto) 1.31, Monocytes # (Auto) 0.58, Eosinophils # (Auto) 0.11, Basophils # (Auto) 0.04 02/16/18 08:20 Test 02/16/18 08:20 02/16/18 10:00 White Blood Count 13.30 K/uL (4.8-10.8) Red Blood Count 4.83 M/uL (4.2-5.4) Hemoglobin 14.1 g/dL (12.0-16.0) Hematocrit 42.4 % (37-47) Mean Corpuscular Volume 87.8 fL (80-100) Mean Corpuscular Hemoglobin 29.2 pg (25-34) Mean Corpuscular Hemoglobin Concent 33.3 g/dl (32-36) Platelet Count 320 K/uL (130-400) Mean Platelet Volume 9.5 fL (7.4-10.4) Neutrophils (%) (Auto) 84.4 % Lymphocytes (%) (Auto) 9.8 % Monocytes (%) (Auto) 4.4 % Eosinophils (%) (Auto) 0.8 % Basophils (%) (Auto) 0.3 % Neutrophils # (Auto) 11.22 K/uL (1.4-6.5) Lymphocytes # (Auto) 1.31 K/uL (1.2-3.4) Monocytes # (Auto) 0.58 K/uL (0.11-0.59) Eosinophils # (Auto) 0.11 K/uL (0-0.5) Basophils # (Auto) 0.04 K/uL (0-0.2) RDW Standard Deviation 48.8 fL (36.4-46.3) RDW Coefficient of Variation 15.1 % (11.5-14.5) Immature Granulocyte % (Auto) 0.3 % Immature Granulocyte # (Auto) 0.04 K/uL (0.00-0.02) Anion Gap 9.0 mmol/L (3-11) Est Creatinine Clear Calc Drug Dose 59.0 ml/min Estimated GFR () 65.5 Estimated GFR (Non- 56.5 BUN/Creatinine Ratio 16.1 (10-20) Calcium Level 9.6 mg/dl (8.5-10.1) Total Bilirubin 0.3 mg/dl (0.2-1) Direct Bilirubin < 0.1 mg/dl (0-0.2) Aspartate Amino Transf (AST/SGOT) 13 U/L (15-37) Alanine Aminotransferase (ALT/SGPT) 18 U/L (12-78) Alkaline Phosphatase 81 U/L (45-117) Total Protein 7.5 gm/dl (6.4-8.2) Albumin 3.9 gm/dl (3.4-5.0) Lipase 131 U/L (73-393) Urine Color YELLOW Urine Appearance CLEAR (CLEAR) Urine pH 6.0 (4.5-7.5) Urine Specific [place] 1.021 (1.000-1.030) Urine Protein NEG (NEG) Urine Glucose (UA) NEG (NEG) Urine Ketones NEG (NEG) Urine Occult Blood 1+ (NEG) Urine Nitrite NEG (NEG) Urine Bilirubin NEG (NEG) Urine Urobilinogen NEG (NEG) Urine Leukocyte Esterase SMALL (NEG) Urine WBC (Auto) 1-5 /hpf (0-5) Urine RBC (Auto) 0-4 /hpf (0-4) Urine Hyaline Casts (Auto) 1-5 /lpf (0-5) Urine Epithelial Cells (Auto) >30 /lpf (0-5) Urine Bacteria (Auto) 2+ (NEG) Laboratory results as stated above per my review. Medications Administered Medications (Trade) Dose Ordered Sig/Armin Route Start Time Stop Time Status Last Admin Dose Admin Sodium Chloride 1,000 ml @ 999 mls/hr Q1H1M STAT IV 02/16/18 08:19 02/16/18 09:19 DC 02/16/18 08:29 999 MLS/HR Ondansetron HCl (Zofran Inj) 4 mg NOW STAT IV 02/16/18 08:19 02/16/18 08:21 DC 02/16/18 08:28 4 MG Ketorolac Tromethamine (Toradol Inj) 30 mg NOW STAT IV 02/16/18 08:19 02/16/18 08:21 DC 02/16/18 08:29 30 MG Morphine Sulfate (MoRPHine SULFATE INJ) 4 mg Q15M PRN IV 02/16/18 08:30 03/02/18 08:29 02/16/18 10:57 4 MG ED Course 0814: Previous medical records were reviewed. The patient was evaluated in room A12B. A complete history and physical examination was performed. 0819: Ordered Toradol Inj 30 mg IV, Zofran Inj 4 mg IV, Sodium Chloride 1000 ml @ 999 mls/hr IVIV. 0830: Ordered Morphine Sulfate 4 mg IV. 1110: On reevaluation, the patient is resting comfortably. I discussed the results and findings with the patient. She verbalized agreement of the treatment plan. The patient was discharged home. Medical Decision Differential considered: pancreatitis, hepatitis, or acute cholecystitis, AAA, UTI, pyelonephritis, kidney stones, appendicitis, diverticulitis, shingles, bowel obstruction mesenteric ischemia, intussusception,hernia, ovarian torsion, ruptured ovarian cyst,ectopic , . This is a 62-year-old female who presents to the ED with a chief complaint of left flank and groin pain. The patient states that her symptoms started around 4 AM this morning. Further details listed above. The patient initially had an elevated blood pressure here. This improved during her stay with pain management. Exam as noted above. CT scan reveals a 4 mm left UVJ stone with moderate hydronephrosis. White blood cell count was 13.3 and a complete metabolic panel was normal. The patient was treated with IV morphine, IV Toradol, IV Zofran IV fluids. Her symptoms did improve. She was told the results. She is provided a urine strainer, prescription for Lortab and Flomax. Medication Reconcilliation Current Medication List: was personally reviewed by me Blood Pressure Screening Patient's blood pressure: Elevated blood pressure Blood pressure disposition: Referred to PCP Impression Primary Impression: Renal colic on left side Additional Impression: Kidney stone Scribe Attestation The scribe's documentation has been prepared under my direction and personally reviewed by me in its entirety. I confirm that the note above accurately reflects all work, treatment, procedures, and medical decision making performed by me. Departure Information Dispostion Home / Self-Care Prescriptions Tamsulosin Hcl (FLOMAX) 0.4 Mg Cap 0.4 MG PO HS for 5 Days, #5 CAP Prov: Marcus Tuttle D.O. 02/16/18 Hydrocodone/Acetaminophen 5MG/325MG ([place] 5MG/325MG) Tab 1 TAB PO QID Y for Pain for 5 Days, #20 TAB PRN PAIN Prov: Marcus Tuttle D.O. 02/16/18 Referrals Libby Brannon C.R.N.PDhaval (PCP) Patient Instructions Kidney Stones, My [facility] Additional Instructions Hydrocodone as prescribed for pain. Take ibuprofen 600 mg every 6 hours for pain. Flomax as prescribed. Strain urine for stone. Follow-up with your PCP or urologist. Follow-up with your doctor for further care and evaluation in 1-2 days. Return to the emergency department for worsening or new symptoms or any concerns. You have been examined and treated today on an emergency basis only. This is not a substitute for, or an effort to provide, complete comprehensive medical care. It is impossible to recognize and treat all injuries or illnesses in a single emergency department visit. It is therefore important that you follow up closely with your doctor. Call as soon as possible for an appointment. Problem Qualifiers
[2018-02-16 11:26] VITALS: BP 137/70; PULSE 71; O2SAT 98
[2018-02-16] MEDS ORDERED: TAMSULOSIN HCL 0.4 MG CAP PO ONE (11:30)
--- NOTE | 2018-02-18 17:51 | Pharmacy Progress Note ---
ED Pharmacist Culture FollowUp Date of Service: Feb 18, 2018. E. coli isolated in urine culture - patient with renal colic and kidney stone. Called patient - reported that she passed the kidney stone a couple hours after her visit here. She notes that she has been vomiting although feels better today and attributes this to the pain medication. She also notes she was shaking yesterday and believed that this was due to a fever, although she noted she does not have a thermometer at home and therefore did not obtain a temperature. Once again, she noted that she feels better today. I relayed the above to Dr. Tuttle who saw the patient originally. Dr. Tuttle then spoke directly with the patient on the phone. Plan is to discontinue pain medication, discontinue tamsulosin, and start Bactrim for UTI and Zofran prn. Dr. Tuttle instructed the patient to return to the ED were her symptoms to worsen. I called [facility] and left a message with the following 2 prescriptions, at Dr. Tuttle's request: 1. Bactrim DS, 1 tab po BID #14, 0 refills 2. Zofran 4 mg, 1 tab po q6h prn N/V #15, 0 refills
== END 2018-02-16 11:43 | disposition home or self-care (01) ==
LOC: EDBD 08:08 → C.EDA 08:09
DX: N13.2 Hydronephrosis with renal and ureteral calculous obstruction (principal); N23 Unspecified renal colic; R03.0 Elevated blood-pressure reading, without diagnosis of hypertension; R06.02 Shortness of breath; R53.1 Weakness; F12.90 Cannabis use, unspecified, uncomplicated; F14.90 Cocaine use, unspecified, uncomplicated; Z87.891 Personal history of nicotine dependence; Z82.49 Family history of ischemic heart disease and other diseases of the circulatory system

== ENCOUNTER 2018-04-20 06:56 | Emergency (ER) | payer OTHER ==
[~2018-04-20] VITALS: Ht 154.9 cm; Wt 90.5 kg
[2018-04-20 06:56] VITALS: TEMP 36.5; Ht 154.9 cm; Wt 90.5 kg
[2018-04-20] MEDS ORDERED: MoRPHine SULFATE 4 MG/ML 1 ML CARP\\VIAL IV STA ×2 (07:15→08:57)
[2018-04-20] MEDS ORDERED: ONDANSETRON INJ 2 MG/ML 2 ML VIAL IV STA (07:15)
[2018-04-20] MEDS ORDERED: SODIUM CHLORIDE 0.9% 500ML 500 ML IV STA (07:15)
--- NOTE | 2018-04-20 07:26 | EMERGENCY ROOM VISIT NOTE ---
History Report prepared by Fariha: Lisa Nair Under the Supervision of: Dr. Darlene Stevenson M.D. First contact with patient: 07:02 Chief Complaint: LEG PAIN,LEG INJURY Stated Complaint: LEG PAIN History of Present Illness The patient is a 62 year old female who presents to the Emergency Room with complaints of severe right hip pain beginning 2 days [employer]. She states the pain has been worsening but she thought it would pass on its own. However, this morning she notes she could not even bend her hip to use the bathroom due to the pain. She states the pain radiates into her back, abdomen, and legs. Movement worsens her pain and she took 1 hydrocodone yesterday but states it did not modify her pain. She has some nausea but denies any fevers, vomiting, or recent falls. The patient states she has a history of arthritis in her hip and back. Source of History: patient Onset: 710 Position: other (right hip) Symptom Intensity: severe Timing: worsening Modifying Factors (Worsening): movement Associated Symptoms: + nausea, No fevers, No vomiting Note: Negative recent falls. Review of Systems See HPI for pertinent positives & negatives. A total of 10 systems reviewed and were otherwise negative. Past Medical & Surgical Medical Problems: (1) Cervical Spinal Stenosis (2) Chronic low back pain (3) Depression (4) Depression (5) Idiopathic Scoliosis (6) Macromastia Family History Cancer FH: heart disease Hypertension Social History Smoking Status: Never Smoker Alcohol Use: none Drug Use: cocaine, marijuana Marital Status: Housing Status: lives alone Occupation Status: disabled Current/Historical Medications Scheduled Cephalexin Monohydrate (Keflex), 500 MG PO BID Gabapentin (Neurontin), 300 MG PO TID Losartan Potassium (Cozaar), 100 MG PO QAM Pediatric Multiple Vitamin W/ (Flintstones Chewable), 1 TAB PO QAM Scheduled PRN Calcium Carbonate (Tums), 1 DOSE PO UD PRN for reflux Carisoprodol (Soma), 350 MG PO Q8 PRN for spasm Hydrocodone/Acetaminophen 5MG/325MG ([place] 5MG/325MG), 0.5 TABLET PO Q4H PRN for Pain Allergies Coded Allergies: No Known Allergies (Verified , 04/20/18) Physical Exam Vital Signs Date Time Temp Pulse Resp B/P (MAP) Pulse Ox O2 Delivery O2 Flow Rate FiO2 04/20/18 12:49 55 20 135/62 96 04/20/18 10:28 65 16 126/62 96 Room Air 04/20/18 09:25 61 20 159/98 100 Room Air 04/20/18 08:34 68 16 159/91 99 Room Air 04/20/18 06:56 36.5 65 24 172/82 100 Room Air Physical Exam Vital signs reviewed. General: Well-appearing female, in no significant distress. HEENT: No scleral icterus, PERRLA, neck supple. Atraumatic. Cardiovascular: Regular rate and rhythm, no extra sounds. Pulmonary: Clear to auscultation bilaterally, normal work of breathing. Abdomen: Soft, nondistended, positive bowel sounds. Tender to palpation of the RLQ, right inguinal fold, right buttock. Musculoskeletal: Atraumatic, no peripheral edema. No pain with flexion or extension of the hip, external or internal rotation, no pain with axial load of the right leg. Some pain with straight leg raise. Thoracic and lumbar spines are nontender. No step-offs or deformity. Neurologic: Patient awake alert and oriented x 3. Skin: Warm, dry, no rash Medical Decision & Procedures ER Provider Diagnostic Interpretation: Radiology results as stated below per my review and radiologist interpretation: LUMBAR SPINE 5 VIEWS HISTORY: low back pain right radiculopathy COMPARISON: None. FINDINGS: There is no fracture. There is 3 mm of anterolisthesis of L5 on S1. Mild levoscoliosis of the lumbar spine. The sacrum appears intact. Endplate osteophytes seen throughout the lumbar spine. There is mild disc space narrowing at L1-L2 and L4-L5. Mild facet degenerative changes within the lower lumbar spine. Bilateral L5 spondylolysis. IMPRESSION: Mild degenerative changes within the lumbar spine described above. No fractures. Bilateral L5 spondylolysis with associated grade I anterolisthesis. Electronically signed by: Lokesh Gutierrez M.D. 04/20/2018 8:42 AM RIGHT HIP 2 VIEWS HISTORY: right hip pain COMPARISON: None. FINDINGS: There is no fracture or dislocation. Soft tissues are unremarkable. No radiopaque foreign bodies. IMPRESSION: No fractures. Electronically signed by: Lokesh Gutierrez M.D. 04/20/2018 8:38 AM ABD/PELVIS IV CONTRAST ONLY CLINICAL HISTORY: 62 years-old Female presenting with RLQ pain, flank pain, severe right groin pain and hip pain that radiates to the back and down the leg since yesterday, history of arthritis in the hip and back, no injury. TECHNIQUE: Multidetector CT of the abdomen and pelvis was performed after the administration of intravenous contrast. IV contrast: 94 mL of Optiray 320. A dose lowering technique was used consistent with the principles of ALARA (as low as reasonably achievable). COMPARISON: Noncontrast CT from 02/16/2018. CT DOSE (mGy.cm): The estimated cumulative dose is 822.02 mGy.cm. 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 Lung bases: Calcified granuloma noted in the left lower lobe. Partially visualized calcified left hilar lymphadenopathy implying prior granulomatous infection. Lung bases otherwise clear. Normal heart size. Coronary artery calcification. No pericardial or pleural effusion. Liver: Normal morphology. Multiple well-defined hypodensities scattered throughout the liver, indeterminate but likely hepatic cysts or hamartomas. Patent hepatic vasculature. Biliary: No intrahepatic or extrahepatic biliary ductal dilatation. Normal gallbladder. Pancreas: Normal. Spleen: Multiple punctate foci of calcifications in the splenic parenchyma likely imply prior granulomatous infection. Adrenal glands: Normal. Kidneys and ureters: Nonobstructing 3 mm calculus at the lower pole of the left kidney, unchanged. 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 No right renal calculi. Renal parenchyma otherwise normal. No hydronephrosis. Ureters normal. The previously noted calculus at the left ureterovesical junction is no longer present consistent with passage. Bladder: Normal. Pelvic organs: Uterus and ovaries normal. Bowel: Mild stool burden. Normal caliber colon. No pericolonic inflammatory change. The appendix is normal. No bowel obstruction. Duodenal diverticulum noted within the pancreatic head. Peritoneal cavity: No free fluid or intraperitoneal gas. Lymph nodes: No enlarged lymph nodes in the abdomen or pelvis. Vasculature: Atherosclerosis of the normal caliber abdominal aorta. IVC patent. Abdominal wall: Normal. Musculoskeletal: Degenerative changes of the spine. Bilateral pars defects of L5 with minimal anterolisthesis of L5 on S1. IMPRESSION: 1. No acute intra-abdominal pathology. 2. Nonobstructing 3 mm left renal calculus. Passage of the previously obstructing distal left ureteral calculus. 3. Evidence of prior granulomatous infection. Electronically signed by: Eric Cruz M.D. 04/20/2018 8:47 AM Laboratory Results 04/20/18 07:33 Red Blood Count 4.41, Mean Corpuscular Volume 90.5, Mean Corpuscular Hemoglobin 30.2, Mean Corpuscular Hemoglobin Concent 33.3, Mean Platelet Volume 10.1, Neutrophils (%) (Auto) 75.2, Lymphocytes (%) (Auto) 14.0, Monocytes (%) (Auto) 6.1, Eosinophils (%) (Auto) 4.1, Basophils (%) (Auto) 0.4, Neutrophils # (Auto) 7.33, Lymphocytes # (Auto) 1.36, Monocytes # (Auto) 0.59, Eosinophils # (Auto) 0.40, Basophils # (Auto) 0.04 04/20/18 07:33 Test 04/20/18 07:33 04/20/18 10:22 White Blood Count 9.74 K/uL (4.8-10.8) Red Blood Count 4.41 M/uL (4.2-5.4) Hemoglobin 13.3 g/dL (12.0-16.0) Hematocrit 39.9 % (37-47) Mean Corpuscular Volume 90.5 fL (80-100) Mean Corpuscular Hemoglobin 30.2 pg (25-34) Mean Corpuscular Hemoglobin Concent 33.3 g/dl (32-36) Platelet Count 254 K/uL (130-400) Mean Platelet Volume 10.1 fL (7.4-10.4) Neutrophils (%) (Auto) 75.2 % Lymphocytes (%) (Auto) 14.0 % Monocytes (%) (Auto) 6.1 % Eosinophils (%) (Auto) 4.1 % Basophils (%) (Auto) 0.4 % Neutrophils # (Auto) 7.33 K/uL (1.4-6.5) Lymphocytes # (Auto) 1.36 K/uL (1.2-3.4) Monocytes # (Auto) 0.59 K/uL (0.11-0.59) Eosinophils # (Auto) 0.40 K/uL (0-0.5) Basophils # (Auto) 0.04 K/uL (0-0.2) RDW Standard Deviation 48.4 fL (36.4-46.3) RDW Coefficient of Variation 14.5 % (11.5-14.5) Immature Granulocyte % (Auto) 0.2 % Immature Granulocyte # (Auto) 0.02 K/uL (0.00-0.02) Anion Gap 5.0 mmol/L (3-11) Est Creatinine Clear Calc Drug Dose 64.8 ml/min Estimated GFR () 77.8 Estimated GFR (Non- 67.1 BUN/Creatinine Ratio 18.5 (10-20) Calcium Level 9.1 mg/dl (8.5-10.1) Total Bilirubin 0.2 mg/dl (0.2-1) Direct Bilirubin < 0.1 mg/dl (0-0.2) Aspartate Amino Transf (AST/SGOT) 16 U/L (15-37) Alanine Aminotransferase (ALT/SGPT) 16 U/L (12-78) Alkaline Phosphatase 80 U/L (45-117) Total Protein 6.7 gm/dl (6.4-8.2) Albumin 3.4 gm/dl (3.4-5.0) Urine Color YELLOW Urine Appearance CLEAR (CLEAR) Urine pH 5.0 (4.5-7.5) Urine Specific [place] 1.045 (1.000-1.030) Urine Protein NEG (NEG) Urine Glucose (UA) NEG (NEG) Urine Ketones NEG (NEG) Urine Occult Blood NEG (NEG) Urine Nitrite POS (NEG) Urine Bilirubin NEG (NEG) Urine Urobilinogen NEG (NEG) Urine Leukocyte Esterase TRACE (NEG) Urine WBC (Auto) 5-10 /hpf (0-5) Urine RBC (Auto) 0-4 /hpf (0-4) Urine Hyaline Casts (Auto) 0 /lpf (0-5) Urine Epithelial Cells (Auto) 5-10 /lpf (0-5) Urine Bacteria (Auto) 4+ (NEG) Laboratory results per my review. Medications Administered Medications (Trade) Dose Ordered Sig/Arimn Route Start Time Stop Time Status Last Admin Dose Admin Morphine Sulfate (MoRPHine SULFATE INJ) 4 mg NOW STAT IV 04/20/18 07:15 04/20/18 07:18 DC 04/20/18 07:34 4 MG Ondansetron HCl (Zofran Inj) 4 mg NOW STAT IV 04/20/18 07:15 04/20/18 07:18 DC 04/20/18 07:33 4 MG Sodium Chloride 500 ml @ 999 mls/hr Q31M STAT IV 04/20/18 07:15 04/20/18 07:45 DC 04/20/18 07:33 999 MLS/HR Morphine Sulfate (MoRPHine SULFATE INJ) 4 mg NOW STAT IV 04/20/18 08:57 04/20/18 08:58 DC 04/20/18 09:20 4 MG Ketorolac Tromethamine (Toradol Inj) 30 mg NOW STAT IV 04/20/18 09:04 04/20/18 09:06 DC 04/20/18 09:21 30 MG Cyclobenzaprine HCl (Flexeril Tab) 5 mg NOW STAT PO 04/20/18 09:04 04/20/18 09:06 DC 04/20/18 09:21 5 MG ED Course 0711: Past medical records reviewed. The patient was evaluated in room B2. A complete history and physical examination was performed. 0715: Ordered Sodium Chloride 500 ml @ 999 mls/hr IV, Zofran Inj 4 mg IV, Morphine Sulfate 4 mg IV 0847: Ordered Morphine Sulfate 4 mg IV 0904: Ordered Flexeril Tab 5 mg PO, Toradol Inj 30 mg IV 1013: I checked on the patient at this time. She is still complaining of pain. 1215: Upon reevaluation, the patient appeared to have improvement of her symptoms. I discussed findings with her. She verbalized agreement of the treatment plan. She was discharged home. Medical Decision Differential diagnosis: Etiologies such as musculoskeletal, disc herniation, fracture, aortic disease, metastatic disease, cord compression, discitis, infection, renal colic, gastrointestinal, acute exacerbation of chronic back pain, sciatica, cauda equina, appendicitis, diverticulitis, renal colic, as well as others were entertained. This patient was evaluated and appeared to be in no significant distress. IV access was obtained and laboratory work was drawn. Patient was medicated with IV morphine and Zofran for her discomfort. X-rays of the lumbar spine were performed and reveal no evidence of acute abnormality. CT scan of the abdomen and pelvis was performed with IV contrast and is negative for acute pathology. There are some degenerative change appreciated. Patient continued to complain of discomfort and was given IV morphine, IV Toradol and p.o. Flexeril. She was able to get out of bed and ambulate without significant assistance or difficulty. UA was obtained and is questionable for infection. Patient was discharged with a prescription for Soma and Keflex. Patient was discharged to the care of her son and will return to the ER for worsening of symptoms or any medical concerns. Medication Reconcilliation Current Medication List: was personally reviewed by me Blood Pressure Screening Patient's blood pressure: Elevated blood pressure Blood pressure disposition: Elevated BP felt to be situational Impression Primary Impression: UTI (urinary tract infection) Additional Impression: Lumbar radiculopathy, right Scribe Attestation The scribe's documentation has been prepared under my direction and personally reviewed by me in its entirety. I confirm that the note above accurately reflects all work, treatment, procedures, and medical decision making performed by me. Departure Information Dispostion Home / Self-Care Prescriptions Carisoprodol (SOMA) 350 Mg Tab 350 MG PO Q8 Y for spasm, #20 TAB Prov: Darlene Stevenson M.D. 04/20/18 Cephalexin Monohydrate (Keflex) 500 Mg Cap 500 MG PO BID, #6 CAP Prov: Darlene Stevenson M.D. 04/20/18 Referrals Libby Brannon, C.R.N.P. (PCP) Forms HOME CARE DOCUMENTATION FORM, IMPORTANT VISIT INFORMATION Patient Instructions My [facility] Additional Instructions Diagnosis:Diagnosis: UTI, Lumbar radiculopathy Keflex 500 mg twice daily for 3 days. Drink plenty of fluids. Continue pain medications as prescribed. Soma 350 mg every 8 hours as needed for muscular spasm. Follow up with your PCP this week for reevaluation. Return to the ED for worsening of symptoms or any medical concerns. Problem Qualifiers
[2018-04-20] MEDS ORDERED: HYDR-5688 PO (07:39)
[2018-04-20] MEDS ORDERED: OPTIRAY 320 IV PRN (07:45)
[2018-04-20 07:47] LABS: BASO % 0.4 %; BASO ABS # 0.04 K/uL (0-0.2); EOS % 4.1 %; HEMATOCRIT 39.9 % (37-47); HEMOGLOBIN 13.3 g/dL (12.0-16.0); IG# 0.02 K/uL (0.00-0.02); LYMPH ABS # 1.36 K/uL (1.2-3.4); MEAN CELL VOLUME 90.5 fL (80-100); MEAN CORPUSCULAR HEMOGLOBIN 30.2 pg (25-34); MEAN CORPUSCULAR HGB CONC 33.3 g/dl (32-36); MEAN PLATELET VOLUME 10.1 fL (7.4-10.4); MONO % 6.1 %; MONO ABS # 0.59 K/uL (0.11-0.59); NEUT % 75.2 %; NEUT ABS # 7.33 K/uL (1.4-6.5); PLATELET COUNT 254 K/uL (130-400); RED CELL DISTRIBUTION WIDTH CV 14.5 % (11.5-14.5); RED CELL DISTRIBUTION WIDTH SD 48.4 fL (36.4-46.3); WHITE BLOOD COUNT 9.74 K/uL (4.8-10.8)
[2018-04-20 08:05] LABS: ALBUMIN 3.4 gm/dl (3.4-5.0); ALKALINE PHOSPHATASE 80 U/L (45-117); ALT/SGPT 16 U/L (12-78); AST/SGOT 16 U/L (15-37); BLOOD UREA NITROGEN 17 mg/dl (7-18); CALCIUM 9.1 mg/dl (8.5-10.1); CARBON DIOXIDE 27 mmol/L (21-32); CREATININE 0.91 mg/dl (0.60-1.20); GLUCOSE 105 mg/dl (70-99); POTASSIUM 4.2 mmol/L (3.5-5.1); SODIUM 143 mmol/L (136-145); TOTAL PROTEIN 6.7 gm/dl (6.4-8.2)
--- NOTE | 2018-04-20 08:39 | DIAGNOSTIC IMAGING REPORT ---
RIGHT HIP 2 VIEWS HISTORY: right hip pain COMPARISON: None. FINDINGS: There is no fracture or dislocation. Soft tissues are unremarkable. No radiopaque foreign bodies. IMPRESSION: No fractures. Electronically signed by: Lokesh Gutierrez M.D. 04/20/2018 8:38 AM Dictated Date/Time: 04/20/2018 8:35 AM
--- NOTE | 2018-04-20 08:44 | DIAGNOSTIC IMAGING REPORT ---
LUMBAR SPINE 5 VIEWS HISTORY: low back pain right radiculopathy COMPARISON: None. FINDINGS: There is no fracture. There is 3 mm of anterolisthesis of L5 on S1. Mild levoscoliosis of the lumbar spine. The sacrum appears intact. Endplate osteophytes seen throughout the lumbar spine. There is mild disc space narrowing at L1-L2 and L4-L5. Mild facet degenerative changes within the lower lumbar spine. Bilateral L5 spondylolysis. IMPRESSION: Mild degenerative changes within the lumbar spine described above. No fractures. Bilateral L5 spondylolysis with associated grade I anterolisthesis. Electronically signed by: Lokesh Gutierrez M.D. 04/20/2018 8:42 AM Dictated Date/Time: 04/20/2018 8:39 AM
--- NOTE | 2018-04-20 08:48 | DIAGNOSTIC IMAGING REPORT ---
ABD/PELVIS IV CONTRAST ONLY CLINICAL HISTORY: 62 years-old Female presenting with RLQ pain, flank pain, severe right groin pain and hip pain that radiates to the back and down the leg since yesterday, history of arthritis in the hip and back, no injury. TECHNIQUE: Multidetector CT of the abdomen and pelvis was performed after the administration of intravenous contrast. IV contrast: 94 mL of Optiray 320. A dose lowering technique was used consistent with the principles of ALARA (as low as reasonably achievable). COMPARISON: Noncontrast CT from 02/16/2018. CT DOSE (mGy.cm): The estimated cumulative dose is 822.02 mGy.cm. FINDINGS: Field Artillery Cannoneer topogram: Unremarkable. Lung bases: Calcified granuloma noted in the left lower lobe. Partially visualized calcified left hilar lymphadenopathy implying prior granulomatous infection. Lung bases otherwise clear. Normal heart size. Coronary artery calcification. No pericardial or pleural effusion. Liver: Normal morphology. Multiple well-defined hypodensities scattered throughout the liver, indeterminate but likely hepatic cysts or hamartomas. Patent hepatic vasculature. Biliary: No intrahepatic or extrahepatic biliary ductal dilatation. Normal gallbladder. Pancreas: Normal. Spleen: Multiple punctate foci of calcifications in the splenic parenchyma likely imply prior granulomatous infection. Adrenal glands: Normal. Kidneys and ureters: Nonobstructing 3 mm calculus at the lower pole of the left kidney, unchanged. 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 No right renal calculi. Renal parenchyma otherwise normal. No hydronephrosis. Ureters normal. The previously noted calculus at the left ureterovesical junction is no longer present consistent with passage. Bladder: Normal. Pelvic organs: Uterus and ovaries normal. Bowel: Mild stool burden. Normal caliber colon. No pericolonic inflammatory change. The appendix is normal. No bowel obstruction. Duodenal diverticulum noted within the pancreatic head. Peritoneal cavity: No free fluid or intraperitoneal gas. Lymph nodes: No enlarged lymph nodes in the abdomen or pelvis. Vasculature: Atherosclerosis of the normal caliber abdominal aorta. IVC patent. Abdominal wall: Normal. Musculoskeletal: Degenerative changes of the spine. Bilateral pars defects of L5 with minimal anterolisthesis of L5 on S1. IMPRESSION: 1. No acute intra-abdominal pathology. 2. Nonobstructing 3 mm left renal calculus. Passage of the previously obstructing distal left ureteral calculus. 3. Evidence of prior granulomatous infection. Electronically signed by: Eric Cruz M.D. 04/20/2018 8:47 AM Dictated Date/Time: 04/20/2018 8:39 AM
[2018-04-20] MEDS ORDERED: KETOROLAC TROMETHAMINE 30 MG/ML VIAL IV STA (09:04)
[2018-04-20] MEDS ORDERED: CYCLOBENZAPRINE HCL 10 MG TAB PO STA (09:04)
[2018-04-20] MEDS ORDERED: CEPH500C PO (11:50)
[2018-04-20] MEDS ORDERED: CARI350T27 PO (12:04)
[2018-04-20 12:49] VITALS: BP 135/62; PULSE 55; O2SAT 96
--- NOTE | 2018-04-22 15:04 | Pharmacy Progress Note ---
ED Pharmacist Culture FollowUp Date of Service: April 22, 2018. Patient was sent home with a prescription for keflex 500mg BID X 3 days, which should cover the E. coli growing from the patient's urine culture. I did discuss with Dr. Stevenson however, and an additional 2 days of therapy was called in to [facility] pharmacy to make a total duration of therapy of 5 days. This was discussed with the patient who was in agreement.
== END 2018-04-20 12:55 | disposition home or self-care (01) ==
LOC: C.EDB 06:56
DX: M54.16 Radiculopathy, lumbar region (principal); N39.0 Urinary tract infection, site not specified; Z79.899 Other long term (current) drug therapy

== ENCOUNTER 2023-03-06 05:22 | Inpatient (IN) ==
[2023-03-06 06:17] LABS: Basophils # (auto) 0.07 K/uL (0-0.2); Basophils % (auto) 0.6 %; Eosinophils # (auto) 0.27 K/uL (0-0.50); Eosinophils % (auto) 2.1 %; Hematocrit (blood only) 38.2 % (37.0-47.0); Hemoglobin 12.7 g/dl (12.0-16.0); Immature Granulocytes # (auto) 0.04 K/uL (0.01-0.20); Immature Granulocytes % (auto) 0.3 %; Lymphocytes # (auto) 1.71 K/uL (1.2-3.4); Lymphocytes % (auto) 13.5 %; Mean Corpuscular Hemoglobin 29.4 pg (25.0-34.0); Mean Corpuscular Hgb Conc 33.2 g/dL (32.0-36.0); Mean Corpuscular Volume 88.4 fL (80.0-100.0); Mean Platelet Volume 10.4 fL (9.4-12.4); Monocytes # (auto) 0.94 K/uL (0.11-0.59); Monocytes % (auto) 7.4 %; Neutrophils # (auto) 9.65 K/uL (1.40-6.50); Neutrophils % (auto) 76.1 %; Platelet Count 251 K/uL (130-400); RDW Coefficient of Variation 14.2 % (11.5-14.5); RDW Standard Deviation 46.1 fL (36.4-46.3); Red Blood Count 4.32 M/uL (4.20-5.40); White Blood Count 12.68 K/ul (4.8-10.8)
[2023-03-06 06:31] LABS: Albumin Globulin Ratio 1.4 (0.9-2); Albumin Level 4.2 gm/dl (3.4-5.0); BUN Creatinine Ratio 15.3 (10-20); Bilirubin,Total 0.8 mg/dl (0.2-1.0); Creatinine Clr Calc Pharmacy 17.8 ml/min; Est GFR (African American) 17.2 ml/min; Est GFR (Non-African American) 14.8 ml/min; Globulin 3.1 gm/dl (2.5-4.0); Magnesium 1.5 mg/dl (1.7-2.4); Potassium 4.5 mmol/L (3.5-5.1); Total Protein 7.3 gm/dl (6.0-8.3)
[2023-03-06 06:38] LABS: Troponin I High Sensitivity 8.2 pg/ml (0-14)
--- NOTE | 2023-03-06 06:54 | Emergency Department Note ---
Impression & Plan Nausea & vomiting, Accidental marijuana overdose, PAIGE (acute kidney injury), Hypomagnesemia ED Provider Note Provider: You Andreson MD DATE OF SERVICE: 03/06/2023 CHIEF COMPLAINT: Headache, weakness HISTORY OF PRESENT ILLNESS: Patient is a 67-year-old female history of hypertension, tobacco use, prior substance abuse presenting here via ambulance today. Patient states that she took some gabapentin that she is now prescribed yesterday morning and then in the evening with having friends over and using marijuana. She states that she began to feel like she was dropping things and tired and sent him home and went to bed. Woke up early this morning and developed some nausea and did vomit. States she still feeling very fatigued and shaky. Called the ambulance and brought here. Ambulatory for the ambulance to their stretcher and ambulance for evaluation here. EMS report was that patient had reported some chest pain or shortness of breath but the patient here denies this. Denies earlier recurrent symptoms of this. States her nausea is improved at this time. States she still feels very fatigued. Does require some prompting to awake for evaluation here. Denies alcohol use or other drug use. Did take her morning meds today she reports. Nursing reports that she did take some oxycodone earlier. States she used some additional marijuana this morning that was not prescribed. Denies any current pain. Denies falling. Reported to nursing upon arrival that the ceiling was purple. PAST MEDICAL HISTORY: As noted above MEDICATIONS: Reviewed home medications SOCIAL HISTORY: Smoker, uses marijuana PHYSICAL EXAM: GENERAL: alert and oriented in no acute distress on stretcher asleep, requires painful stimuli to awake and then is talking in full sentences. Head: normocephalic and atraumatic EYES: No injection, discharge or icterus. PERRL NECK: Trachea midline. Supple. ENT: Mucous membranes pink and moist. Pharynx without erythema or exudate. LUNGS: Airway patent. No retractions. Breath sounds with occasional faint scattered wheeze. HEART: Regular rate and rhythm. No chest wall tenderness ABDOMEN: Soft and non-tender, without guarding or rebound. SKIN: Acyanotic, warm, dry, without rashes EXTREMITIES: Without swelling, tenderness or deformity NEUROLOGICAL: No focal deficits. No aphasia. No facial droop or slurred speech. Normal strength and tone in the extremities. Sensation to gross touch normal. Ambulatory. EK bpm normal sinus rhythm. No PVC or PAC. No acute ST segment elevation or depression with lead III T wave inversion. QTc 429. CONTINUOUS CARDIAC MONITORING: was ordered and showed a heart rate of 50s-60s bpm in normal sinus rhythm to sinus bradycardia Patient's laboratory studies and imaging reviewed. Differential includes Infection, dehydration, metabolic abnormality, hypo/hyperglycemia, electrolyte disturbance, anemia, hypoxia, cardiac sources, intracerebral event, toxicologic, neurologic, as well as other pathologies. IMPRESSION/MEDICAL DECISION MAKING: Patient reports using some gabapentin off the street as well as using some marijuana last evening and again this morning. Reported to EMS some chest pain or shortness of breath but denies this here. X-ray and basic labs obtained here. EKG without significant findings. Troponin sent but have lower suspicion for acute ACS. Delta troponin was ordered. Does report vomiting earlier denies any trauma. Denies alcohol use but alcohol level was sent given that she is feeling somewhat fatigued. Somewhat difficult to awaken initially but then promptly awakes and begins talking in full sentences. Not having significant dysarthria or slurred speech. Moving all extremities. Ambulatory here. We will complete a CT of the head given some complaint of her weakness but denies again with any significant pain or numbness or tingling and have a low suspicion for CVA. Basic labs obtained as well as a chest x-ray. Satting well here on room air. Question if her symptoms including the reports that she was having some hallucinations the ceiling was purple may be related to the substance use. Monitored here. Blood work does interestingly show a new creatinine of just over 3 with slight BUN elevation of 47. No other significant leukocytosis or electrolyte abnormality noted beyond some mild hypomagnesemia. Given some IV fluid we will complete a CT scan of the abdomen pelvis to look for possible obstructive pathology causing her renal dysfunction. No documented history of significant renal dysfunction on review of records. CT imaging without evidence of obstructive hydronephrosis seen. After several hours here the patient still is confused (she forgets walking back from the bathroom just minutes ago) and fatigued and with the acute kidney injury significantly with a creatinine of just over 3 feel that further evaluation and observation of this is warranted. DIAGNOSIS: Nausea and vomiting, marijuana use, PAIGE, hypomagnesemia DISPOSITION: Evaluated by the hospitalist team Patient was agreeable with this plan. Past Med/Surg History Medical History (Updated 03/06/23 @ 11:49 by Marcus Terrazas PA-C) Abdominal bloating Abdominal pain Depression Herpes zoster History of kidney stones Hyperlipidemia NO MEDS Hypertension Leaking of urine Left knee injury Lumbar stenosis with neurogenic claudication Macromastia Medical marijuana use Obesity Substance abuse ALCOHOL USE COUPLE TIMES A MONTH PER PT Temporomandibular joint disorder CLICKS BILAT-NO LOCKING Surgical History History of bilateral breast reduction surgery History of bilateral tubal ligation History of breast surgery History of cataract surgery History of delivery History of colonoscopy History of esophagogastroduodenoscopy (EGD) History of shoulder surgery History of tooth extraction Family History Mother Pulmonary fibrosis Stroke Father Arthritis Other No family history of adverse response to anesthesia Ovarian cancer Denies family history of Prostate cancer Myocardial infarction Breast cancer Colorectal cancer Colonic polyp Social History Smoking Status: Former smoker Tobacco Type: Cigarettes and E-cigarettes / Vaping Age Started Using Tobacco: 15; packs per day: 0.5; Cigarettes Per Day: 1 pack every 3 days; Second Hand Exposure: No; Do You Dip or Chew Tobacco: No; Tobacco Cessation Education Requested by Patient: No Hx Alcohol Use: Yes Alcohol type: hard liquor Alcohol Intake Frequency: 2-3 x/Week Alcohol Intake Frequency Comment: 1/2 bottle schnapps in a sitting, goes through 4 bottles per month Hx Substance Use: Yes Prescribed Medications: Marijuana Last Used Substance: Hours (ago) Last Used Substance Other:: Yesterday Substance Use Type Other:: Gabapentin, suboxone, oxycodone Preferred Language: Setswana Communication Ability: Effective Visual Impairment: No Limitations Hearing Ability: Normal Floor Runner Required: No Beliefs That Will Affect Care: None marital status: Current Living Situation: Alone Current Living Situation Comment: Lives at home alone current occupational status: disabled Other Information That Helps Us Care for You: No Feels Safe at Home: Yes Safety Concerns: Feels Safe At This Time Childhood Exposure to Second-Hand Smoke: Yes Dental Care, Regularly: No Physical Activity Frequency: Does not Exercise Seatbelt Use: always Sunscreen Use: No Assistive Devices: Cane Allergies Allergies Allergy/AdvReac Type Severity Reaction Status Date / Time No Known Allergies Allergy Verified 01/20/23 07:46 Home Meds Home Medications Medication Instructions Recorded Confirmed prazosin 1 mg capsule 1 mg PO HS PRN Nightmares 01/18/22 01/20/23 pantoprazole 40 mg tablet,delayed 40 mg PO QAM 07/19/22 01/20/23 release Previous Rx's Medication Instructions Recorded blood pressure kit-extra large #1 ea 10/26/19 metoprolol succinate 50 mg 50 mg PO QAM #90 tabs 04/30/22 tablet,extended release 24 hr duloxetine 60 mg capsule,delayed 60 mg PO QAM #90 caps 05/03/22 release baclofen 10 mg tablet 10 mg PO QID #360 tabs 07/04/22 vitamin B complex 1 tab PO DAILY #30 tabs 07/26/22 losartan 100 mg tablet 100 mg PO QAM #90 tabs 07/30/22 duloxetine 30 mg capsule,delayed 30 mg PO QAM #90 caps 08/06/22 release albuterol sulfate 90 mcg/actuation 1 inh inhalation QID 90 days #25.5 12/28/22 aerosol inhaler (ProAir HFA) grams methylprednisolone 4 mg tablets in See Rx Instructions .Route 01/20/23 a dose pack (Medrol (Nathanael)) .COMPLEX #21 ea Results & Data (ED) Vital Signs Vital Signs - 24 hr 03/06/23 05:49 03/06/23 06:08 03/06/23 06:08 Temperature 36.8 C Temperature Source Oral Pulse Rate 73 60 Pulse Rate [Apical] Respiratory Rate 16 Respiratory Effort / Characteristics Respiratory Depth Blood Pressure 135/73 Blood Pressure [Left Arm] Blood Pressure Mean 93 Blood Pressure Mean [Left Arm] Blood Pressure Position [Left Arm] Pulse Oximetry 94 94 Oxygen Delivery Method Room Air Room Air Sepsis Recent Fever Within 48 Hours No Sepsis New/Unexplained Change in Mental Status N/A Sepsis Action Taken by Nursing No Action Required 03/06/23 07:12 03/06/23 08:02 03/06/23 09:02 Temperature Temperature Source Pulse Rate Pulse Rate [Apical] 58 L 61 63 Respiratory Rate 16 16 16 Respiratory Effort / Characteristics Non-Labored Spontaneous Non-Labored Spontaneous Non-Labored Spontaneous Respiratory Depth Normal Normal Normal Blood Pressure Blood Pressure [Left Arm] 127/67 118/67 106/88 Blood Pressure Mean Blood Pressure Mean [Left Arm] 87 84 94 Blood Pressure Position [Left Arm] Lying Pulse Oximetry 96 98 95 Oxygen Delivery Method Room Air Room Air Room Air Sepsis Recent Fever Within 48 Hours Sepsis New/Unexplained Change in Mental Status Sepsis Action Taken by Nursing 03/06/23 09:46 Temperature Temperature Source Pulse Rate 60 Pulse Rate [Apical] Respiratory Rate Respiratory Effort / Characteristics Respiratory Depth Blood Pressure Blood Pressure [Left Arm] Blood Pressure Mean Blood Pressure Mean [Left Arm] Blood Pressure Position [Left Arm] Pulse Oximetry Oxygen Delivery Method Sepsis Recent Fever Within 48 Hours Sepsis New/Unexplained Change in Mental Status Sepsis Action Taken by Nursing Laboratory Data 03/06/23 05:51 03/06/23 05:51 Lab Results 03/06/23 03/06/23 03/06/23 Range/Units 05:51 05:51 05:51 WBC 12.68 H (4.8-10.8) K/ul RBC 4.32 (4.20-5.40) M/uL Hgb 12.7 (12.0-16.0) g/dl Hct 38.2 (37.0-47.0) % MCV 88.4 (80.0-100.0) fL MCH 29.4 (25.0-34.0) pg MCHC 33.2 (32.0-36.0) g/dL RDW Std Deviation 46.1 (36.4-46.3) fL RDW Coeff of Rafi 14.2 (11.5-14.5) % Plt Count 251 (130-400) K/uL MPV 10.4 (9.4-12.4) fL Immature Gran % (Auto) 0.3 % Neut % (Auto) 76.1 % Lymph % (Auto) 13.5 % Stanly % (Auto) 7.4 % Eos % (Auto) 2.1 % Baso % (Auto) 0.6 % Neut # (Auto) 9.65 H (1.40-6.50) K/uL Lymph # (Auto) 1.71 (1.2-3.4) K/uL Stanly # (Auto) 0.94 H (0.11-0.59) K/uL Eos # (Auto) 0.27 (0-0.50) K/uL Baso # (Auto) 0.07 (0-0.2) K/uL Immature Gran # (Auto) 0.04 (0.01-0.20) K/uL Sodium 136 (136-145) mmol/L Potassium 4.5 (3.5-5.1) mmol/L Chloride 104 (98-107) mmol/L Carbon Dioxide 23 (21-32) mmol/L Anion Gap 9 (3-11) BUN 47 H (6-23) mg/dl Creatinine 3.08 H (0.6-1.2) mg/dl Est Cr Clr Drug Dosing 17.8 ml/min Est GFR ( Amer) 17.2 ml/min Est GFR (Non-Af Amer) 14.8 ml/min BUN/Creatinine Ratio 15.3 (10-20) Glucose 118 H (70-99(Fasting)) mg/dl Calcium 9.0 (8.6-10.3) mg/dl Magnesium 1.5 L (1.7-2.4) mg/dl Total Bilirubin 0.8 (0.2-1.0) mg/dl AST 24 (13-39) U/L ALT 12 (7-52) U/L Alkaline Phosphatase 78 (34-104) U/L Troponin I High Sens 8.2 (0-14) pg/ml Total Protein 7.3 (6.0-8.3) gm/dl Albumin 4.2 (3.4-5.0) gm/dl Globulin 3.1 (2.5-4.0) gm/dl Albumin/Globulin Ratio 1.4 (0.9-2) Lipase 13 (11-82) U/L Urine Color Urine Appearance (Clear) Urine pH (4.5-7.5) Ur Specific Iraan (1.000-1.030) Urine Protein (Negative) Urine Glucose (UA) (Negative) Urine Ketones (Negative) Urine Blood (Negative) Urine Nitrite (Negative) Urine Bilirubin (Negative) Urine Urobilinogen (Negative) Ur Leukocyte Esterase (Negative) Urine WBC (Auto) (0-5) /hpf Urine RBC (Auto) (0-4) /hpf U Hyaline Cast (Auto) (0-5) /lpf U Epithel Cells (Auto) (0-5) /lpf Urine Bacteria (Auto) (Negative) Urine Opiates Screen (Neg) Ur Methadone, Qual (Neg) Urine Barbiturates (Neg) Ur Phencyclidine (PCP) (Neg) U Amphetamin/Meth Scrn (Neg) MDMA (Ecstasy) Screen (Neg) U Benzodiazepines Scrn (Neg) Ur Cocaine Metabolite (Neg) U Marijuana (THC) Screen (Neg) Ethyl Alcohol mg/dL (<10.0) mg/dl SARS-CoV-2 (PCR) NEGATIVE (Negative) 03/06/23 03/06/23 03/06/23 Range/Units 06:34 07:53 07:53 WBC (4.8-10.8) K/ul RBC (4.20-5.40) M/uL Hgb (12.0-16.0) g/dl Hct (37.0-47.0) % MCV (80.0-100.0) fL MCH (25.0-34.0) pg MCHC (32.0-36.0) g/dL RDW Std Deviation (36.4-46.3) fL RDW Coeff of Rafi (11.5-14.5) % Plt Count (130-400) K/uL MPV (9.4-12.4) fL Immature Gran % (Auto) % Neut % (Auto) % Lymph % (Auto) % Stanly % (Auto) % Eos % (Auto) % Baso % (Auto) % Neut # (Auto) (1.40-6.50) K/uL Lymph # (Auto) (1.2-3.4) K/uL Stanly # (Auto) (0.11-0.59) K/uL Eos # (Auto) (0-0.50) K/uL Baso # (Auto) (0-0.2) K/uL Immature Gran # (Auto) (0.01-0.20) K/uL Sodium (136-145) mmol/L Potassium (3.5-5.1) mmol/L Chloride (98-107) mmol/L Carbon Dioxide (21-32) mmol/L Anion Gap (3-11) BUN (6-23) mg/dl Creatinine (0.6-1.2) mg/dl Est Cr Clr Drug Dosing ml/min Est GFR ( Amer) ml/min Est GFR (Non-Af Amer) ml/min BUN/Creatinine Ratio (10-20) Glucose (70-99(Fasting)) mg/dl Calcium (8.6-10.3) mg/dl Magnesium (1.7-2.4) mg/dl Total Bilirubin (0.2-1.0) mg/dl AST (13-39) U/L ALT (7-52) U/L Alkaline Phosphatase (34-104) U/L Troponin I High Sens (0-14) pg/ml Total Protein (6.0-8.3) gm/dl Albumin (3.4-5.0) gm/dl Globulin (2.5-4.0) gm/dl Albumin/Globulin Ratio (0.9-2) Lipase (11-82) U/L Urine Color Yellow Urine Appearance Cloudy A (Clear) Urine pH 5.0 (4.5-7.5) Ur Specific Iraan 1.009 (1.000-1.030) Urine Protein Negative (Negative) Urine Glucose (UA) Negative (Negative) Urine Ketones Negative (Negative) Urine Blood Negative (Negative) Urine Nitrite Negative (Negative) Urine Bilirubin Negative (Negative) Urine Urobilinogen Negative (Negative) Ur Leukocyte Esterase Trace H (Negative) Urine WBC (Auto) 1-5 (0-5) /hpf Urine RBC (Auto) 0-4 (0-4) /hpf U Hyaline Cast (Auto) 1-5 (0-5) /lpf U Epithel Cells (Auto) 10-20 H (0-5) /lpf Urine Bacteria (Auto) Negative (Negative) Urine Opiates Screen Neg (Neg) Ur Methadone, Qual Neg (Neg) Urine Barbiturates Neg (Neg) Ur Phencyclidine (PCP) Neg (Neg) U Amphetamin/Meth Scrn Neg (Neg) MDMA (Ecstasy) Screen Neg (Neg) U Benzodiazepines Scrn Neg (Neg) Ur Cocaine Metabolite Neg (Neg) U Marijuana (THC) Screen Pos H (Neg) Ethyl Alcohol mg/dL < 10.0 (<10.0) mg/dl SARS-CoV-2 (PCR) (Negative) 03/06/23 Range/Units 08:26 WBC (4.8-10.8) K/ul RBC (4.20-5.40) M/uL Hgb (12.0-16.0) g/dl Hct (37.0-47.0) % MCV (80.0-100.0) fL MCH (25.0-34.0) pg MCHC (32.0-36.0) g/dL RDW Std Deviation (36.4-46.3) fL RDW Coeff of Rafi (11.5-14.5) % Plt Count (130-400) K/uL MPV (9.4-12.4) fL Immature Gran % (Auto) % Neut % (Auto) % Lymph % (Auto) % Stanly % (Auto) % Eos % (Auto) % Baso % (Auto) % Neut # (Auto) (1.40-6.50) K/uL Lymph # (Auto) (1.2-3.4) K/uL Stanly # (Auto) (0.11-0.59) K/uL Eos # (Auto) (0-0.50) K/uL Baso # (Auto) (0-0.2) K/uL Immature Gran # (Auto) (0.01-0.20) K/uL Sodium (136-145) mmol/L Potassium (3.5-5.1) mmol/L Chloride (98-107) mmol/L Carbon Dioxide (21-32) mmol/L Anion Gap (3-11) BUN (6-23) mg/dl Creatinine (0.6-1.2) mg/dl Est Cr Clr Drug Dosing ml/min Est GFR ( Amer) ml/min Est GFR (Non-Af Amer) ml/min BUN/Creatinine Ratio (10-20) Glucose (70-99(Fasting)) mg/dl Calcium (8.6-10.3) mg/dl Magnesium (1.7-2.4) mg/dl Total Bilirubin (0.2-1.0) mg/dl AST (13-39) U/L ALT (7-52) U/L Alkaline Phosphatase (34-104) U/L Troponin I High Sens 6.6 (0-14) pg/ml Total Protein (6.0-8.3) gm/dl Albumin (3.4-5.0) gm/dl Globulin (2.5-4.0) gm/dl Albumin/Globulin Ratio (0.9-2) Lipase (11-82) U/L Urine Color Urine Appearance (Clear) Urine pH (4.5-7.5) Ur Specific Iraan (1.000-1.030) Urine Protein (Negative) Urine Glucose (UA) (Negative) Urine Ketones (Negative) Urine Blood (Negative) Urine Nitrite (Negative) Urine Bilirubin (Negative) Urine Urobilinogen (Negative) Ur Leukocyte Esterase (Negative) Urine WBC (Auto) (0-5) /hpf Urine RBC (Auto) (0-4) /hpf U Hyaline Cast (Auto) (0-5) /lpf U Epithel Cells (Auto) (0-5) /lpf Urine Bacteria (Auto) (Negative) Urine Opiates Screen (Neg) Ur Methadone, Qual (Neg) Urine Barbiturates (Neg) Ur Phencyclidine (PCP) (Neg) U Amphetamin/Meth Scrn (Neg) MDMA (Ecstasy) Screen (Neg) U Benzodiazepines Scrn (Neg) Ur Cocaine Metabolite (Neg) U Marijuana (THC) Screen (Neg) Ethyl Alcohol mg/dL (<10.0) mg/dl SARS-CoV-2 (PCR) (Negative) Administered Medications Albuterol (Albut/Ipratrop 3mg/0.5mg Neb 3 Ml Vial) 3 ml NEB QIDR FARZANA; Protocol Stop: 04/05/23 10:59 Last Admin: 03/06/23 11:50 Dose: 3 ml Documented By: MAKI Lactated Ringer's (Lr) 1,000 mls @ 100 mls/hr IV .Q10H FARZANA Stop: 03/07/23 06:29 Last Admin: 03/06/23 12:59 Dose: 100 mls/hr Documented By: MELANIEW Discontinued Medications Sodium Chloride (Nss 1000ml) 1,000 mls @ 999 mls/hr IV .Q1H1M ONE Stop: 03/06/23 08:12 Last Infusion: 03/06/23 08:24 Dose: 0 mls/hr Documented By: Admin: 03/06/23 07:16 Dose: 999 mls/hr Documented By: EVERETTE Magnesium Sulfate/Dextrose (Magnesium Sulfate / D5w) 1 gm in 100 mls @ 200 mls/hr IV Q30M FARZANA Stop: 03/06/23 10:29 Last Infusion: 03/06/23 10:45 Dose: 0 mls/hr Documented By: Admin: 03/06/23 10:13 Dose: 200 mls/hr Documented By: Infusion: 03/06/23 10:13 Dose: 200 mls/hr Documented By: Admin: 03/06/23 09:43 Dose: 200 mls/hr Documented By: EVERETTE Imaging Data Radiologist's Impression: Chest X-Ray 03/06/23 05:28 XR chest 1V portable CLINICAL HISTORY: Chest pain, nonspecific TECHNIQUE: Single frontal radiograph of the chest was obtained. Comparison: Comparison is made to chest radiograph 09/09/2022 FINDINGS: Exam is limited by underpenetration. Calcified aortic knob is seen. The lungs are clear. No evidence of pleural effusion or pneumothorax. IMPRESSION: No acute chest disease. ACT 112: Negative or not required by law. Electronically signed by: Conner Nunez M.D. 03/06/2023 7:[address] 03/06/23 06:36 CT head/brain wo con CLINICAL HISTORY: confusion Technique: Contiguous axial CT images of the head were acquired from the base of the skull to the vertex without intravenous contrast administration. Images were viewed in brain, subdural and bone windows. Automated dose lowering techniques and/or adjustment according to patient size were utilized for this exam. Comparison: None available at the time of this dictation. Findings: The ventricles, basal cisterns, and cerebral sulci are normal. There is no acute intracranial hemorrhage or evidence of acute territorial infarction. Neither mass effect, shift of the midline structures, nor abnormal extra-axial fluid collections are shown. Opacification of a few ethmoid air cells noted. The orbits appear normal. There are no acute fractures of the calvaria or scalp swelling. Impression: No acute intracranial hemorrhage, no evidence of acute territorial infarction or other acute intracranial disease process. ACT 112: Negative or not required by law. Electronically signed by: Conner Nunez M.D. 03/06/2023 7:09 AM Abdomen/Pelvis CT 03/06/23 07:21 CT abd pelvis wo con CLINICAL HISTORY: n/v, new PAIGE TECHNIQUE: Helical axial images of the abdomen and pelvis were obtained. Autom ated dose lowering techniques and/or adjustment according to patient size were utilized for this exam. This exam was performed without intravenous contrast. CT DOSE: 839.28 mGy.cm COMPARISON: Comparison is made to CT abdomen pelvis 08/21/2020 FINDINGS: Exam is limited by patient motion. Lower chest: Multifocal airspace opacities are seen, new from prior exam. Liver: Subcentimeter hypodensities in the liver are too small to characterize. Gallbladder and biliary tree: No calcified gallstones. Normal caliber wall. No intra- or extrahepatic biliary ductal dilation. Pancreas: Unremarkable, no focal lesions. Spleen: Calcifications are noted in the spleen compatible with prior granulomatous disease. Adrenals: Unremarkable. Kidneys and ureters: Nonobstructive nephrolithiasis is seen. No hydronephrosis is seen. Bladder: Unremarkable. Reproductive organs: Unremarkable. Bowel: The appendix is normal. Moderate hiatal hernia is seen. Lymph nodes Retroperitoneal: Subcentimeter shelli hepatis nodes are noted. Pelvic: Unremarkable. Mesenteric: Unremarkable. Peritoneum: Normal. Vessels: Atherosclerotic calcifications are seen. Abdominal wall: Unremarkable. Bones: Degenerative changes in the visualized spine. IMPRESSION: No evidence of hydronephrosis in this patient with acute kidney injury. ACT 112: Negative or not required by law. Electronically signed by: Conner Nunez M.D. 03/06/2023 7:56 AM Discharge Plan Visit Data Chief Complaint: Vomiting Stated Complaint: BREATHING DIFFICULTY, CHEST PAIN, NAUSEA,WEAKNESS ED Provider: You Anderson Discharge Problem: Nausea & vomiting, Accidental marijuana overdose, PAIGE (acute kidney injury), Hypomagnesemia Patient Disposition: Admitted As Inpatient Discharge Instructions Interventions: ED Discharge Assessment Last Done: 03/06/23 12:15 Nausea & vomiting Qualifiers: Vomiting type: unspecified Qualified Code(s): R11.2 - Nausea with vomiting, unspecified Accidental marijuana overdose Qualifiers: Encounter type: initial encounter Qualified Code(s): T40.711A - Poisoning by cannabis, accidental (unintentional), initial encounter
--- NOTE | 2023-03-06 07:10 | CT Scan Report ---
CT head/brain wo con CLINICAL HISTORY: confusion Technique: Contiguous axial CT images of the head were acquired from the base of the skull to the sissy mamta without intravenous contrast administration. Images were viewed in brain, subdural and bone [facility] . Automated dose lowering techniques and/or adjustment according to patient size were utilized for this exam. Comparison: None available at the time of this dictation. Findings: The ventricles, basal cisterns, and cerebral sulci are normal. There is no acute intracranial hemorrh age or evidence of acute territorial infarction. Neither mass effect, shift of the midline structures , nor abnormal extra-axial fluid collections are shown. Opacification of a few ethmoid air cells noted. The orbits appear normal. There are no acute fractur es of the calvaria or scalp swelling. Impression: No acute intracranial hemorrhage, no evidence of acute territorial infarction or other acute intracra nial disease process. ACT 112: Negative or not required by law. Electronically signed by: Conner Nunez M.D. 03/06/2023 7:09 AM
[2023-03-06] MEDS ORDERED: SODIUM CHLORIDE 0.9% 1000ML 1,000 ML IV ONE (07:12)
--- NOTE | 2023-03-06 07:22 | XRay Report ---
XR chest 1V portable CLINICAL HISTORY: Chest pain, nonspecific TECHNIQUE: Single frontal radiograph of the chest was obtained. Comparison: Comparison is made to chest radiograph 09/09/2022 FINDINGS: Exam is limited by underpenetration. Calcified aortic knob is seen. The lungs are clear. No evidence of pleural effusion or pneumothorax. IMPRESSION: No acute chest disease. ACT 112: Negative or not required by law. Electronically signed by: Conner Nunez M.D. 03/06/2023 7:20 AM
--- NOTE | 2023-03-06 07:58 | CT Scan Report ---
CT abd pelvis wo con CLINICAL HISTORY: n/v, new PAIGE TECHNIQUE: Helical axial images of the abdomen and pelvis were obtained. Automated dose lowering tech niques and/or adjustment according to patient size were utilized for this exam. This exam was perfor med without intravenous contrast. CT DOSE: 839.28 mGy.cm COMPARISON: Comparison is made to CT abdomen pelvis 08/21/2020 FINDINGS: Exam is limited by patient motion. Lower chest: Multifocal airspace opacities are seen, new from prior exam. Liver: Subcentimeter hypodensities in the liver are too small to characterize. Gallbladder and biliary tree: No calcified gallstones. Normal caliber wall. No intra- or extrahepatic biliary ductal dilation. Pancreas: Unremarkable, no focal lesions. Spleen: Calcifications are noted in the spleen compatible with prior granulomatous disease. Adrenals: Unremarkable. Kidneys and ureters: Nonobstructive nephrolithiasis is seen. No hydronephrosis is seen. Bladder: Unremarkable. Reproductive organs: Unremarkable. Bowel: The appendix is normal. Moderate hiatal hernia is seen. Lymph nodes Retroperitoneal: Subcentimeter shelli hepatis nodes are noted. Pelvic: Unremarkable. Mesenteric: Unremarkable. Peritoneum: Normal. Vessels: Atherosclerotic calcifications are seen. Abdominal wall: Unremarkable. Bones: Degenerative changes in the visualized spine. IMPRESSION: No evidence of hydronephrosis in this patient with acute kidney injury. ACT 112: Negative or not required by law. Electronically signed by: Conner Nunez M.D. 03/06/2023 7:56 AM
[2023-03-06 08:04] LABS: Appearance Urine Cloudy (Clear); Bacteria Urine Automated Negative (Negative); Bilirubin Urine Negative (Negative); Blood Urine Negative (Negative); Color Urine Yellow; Glucose Urine UA Negative (Negative); Ketones Urine Negative (Negative); Leukocyte Esterase Urine Trace (Negative); Nitrite Urine Negative (Negative); Protein Urine Negative (Negative); RBC Urine Automated 0-4 /hpf (0-4); Specific Gravity Urine 1.009 (1.000-1.030); Urobilinogen Urine Negative (Negative)
[2023-03-06 08:30] LABS: Amphetamines+Metham, Urine Neg (Neg); Barbiturates, Urine Neg (Neg); Benzodiazepine, Urine Neg (Neg); Cocaine, Urine Neg (Neg); MDMA (Ecstacy), Urine Neg (Neg); Methadone, Urine Neg (Neg); Opiate, Urine Neg (Neg); Phencyclidine, Urine Neg (Neg)
--- NOTE | 2023-03-06 09:25 | Electrocardiogram Report ---
Test Reason : Blood Pressure : / mmHG Vent. Rate : 064 BPM Atrial Rate : 064 BPM P-R Int : 164 ms QRS Dur : 086 ms QT Int : 416 ms P-R-T Axes : 046 011 018 degrees QTc Int : 429 ms Poor data quality, interpretation may be adversely affected Normal sinus rhythm Normal ECG When compared with ECG of 18-JAN-2022 11:40, No significant change was found Confirmed by Ghsasan Mcintosh ([id number]) on 03/06/2023 9:25:23 AM Referred By: Confirmed By:Ghassan Mcintosh
[2023-03-06] MEDS: MAGNESIUM SULFATE / D5W 1 GM/100 ML BAG IV SCH ×2 (09:43→10:13)
--- NOTE | 2023-03-06 10:18 | History & Physical Report ---
Date of Service March 06, 2023 Assessment & Plan (1) Generalized weakness: Plan: -Admit to med/tele on cont pulse oximetry -The patient is currently afebrile, hemodynamically stable, and stable on RA -At this time the patient's generalized weakness/fatigue is likely multifactorial and includes polypharmacy including recreation marijuana, hypercapnia due to COPD and possible undiagnosed AMAIRANI -No signs of infection at this time as she is without leukocytosis, fever, UTI, focal consolidation in the lungs, and acute abdominal pathology -CT of the head was negative for acute findings -The patient is currently using multiple prescription and non-prescription sedative medications for chronic back pain including gabapentin, oxycodone, marijuana, and baclofen -S/P 1L NSS in the ED, will continue on LR at 100 mL/hr x 2 bags -Monitor on tele/pulse oximetry -Will obtain STAT ABG, TSH, Salicylate and Acetaminophen levels for further evaluation -The patient gave consent to have security search her belongings for sedative medications and recreational drugs, they will be by shortly -Would consider having the patient evaluated by Pain Management for possible nerve blocks or ablation procedures which could help control her back pain, could also be a candidate for physical therapy -For now will order her a lidocaine patch and heating pad for her low back, can readdress pain regimen later today when the rest of her workup results and if she is more awake -Will need to monitor for sings of baclofen withdrawal -Will give her 100 mg IV thiamine and 1 gm IV folic acid now with her history of alcohol abuse, do not think is is currently in alcohol withdrawal -BL SCD's and Sub-Q heparin for DVT PPX -AM CBC, CMP, Mag (2) PAIGE (acute kidney injury): Plan: -Patient noted to have a cr of 3.0 today, baseline appears to be 0.9 -Could be multifactorial including dehydration, polypharmacy, salicylate overdose -No signs of obstruction on CT of the abd/pelvis -Will continue light IV hydration for now, will need to avoid nephrotoxic agents and renally dose prescription meds -Monitor intake and output q6h, monitor daily renal function and electrolytes (3) Hypomagnesemia: Plan: -Noted to be 1.5 today -Likely due to poor diet and recent vomiting this am -S/P 1 gm IV mag in the ED, will give another gram later today -Monitor am Mag level (4) Polypharmacy: Plan: -See generalized weakness (5) Chronic back pain: Plan: -Pain control as described in Generalized weakness -Would likely benefit from PT and pain management consult (6) Depression with anxiety: Plan: -Will reduce her dose of Cymbalta from 90 mg PO daily to 30 with her current GFR (7) Esophageal reflux: Plan: -Continue pantoprazole (8) Hypertension: Plan: -Stable -Continue metoprolol -Not taking losartan anymore per the patient (9) Tobacco abuse: Plan: -Nicotine patch ordered -Continue to stress smoking cessation Plan The patient was discussed with Dr. Marquez at the time of the admission History of Present Illness Chief Complaint: Generalized weakness/fatigue Primary Care Provider: MARGARITA Carter Kellen is a 67 year old female with a PMH significant for COPD, tobacco abuse, daily marijuana abuse, alcohol abuse, GERD, HTN, and Hyperlipidemia who presented to the [facility] ED on 03/06/23 with a chief complaint of generalized weakness and fatigue. In the ED the patient was found to be afebrile, hemodynamically stable, and stable on RA. Labs were remarkable for a WBC of 12.68 with left shift of 9.65, cr of 3.08 (baseline appears to be 0.90), mag of 1.5 otherwise stable electrolytes, glucose of 118, two negative high sen trops, UA , with cloudy appearance, trach leukocyte esterase, urine tox screen positive for marijuana, and covid [address] of the head was read as No acute intracranial hemorrhage, no evidence of acute territorial infarction or other acute intracranial disease process.. Chest xray was read as Exam is limited by underpenetration. Calcified aortic knob is seen. The lungs are clear. No evidence of pleural effusion or pneumothorax.. CT of the abd/pelvis without con was read as No evidence of hydronephrosis in this patient with acute kidney injury.. Of note, the CT of the abdomen and pelvis also showed Multifocal airspace opacities are seen, new from prior exam.. Prior to admission the patient was given 1L NSS and 1gm IV magnesium. At the time of the exam the patient was in a deep sleep, snoring loudly. I was able to wake her by calling her name and shaking her arm. When first waking the patient was confused but then became oriented. She states that she has chronic back pain which is not currently controlled. She previously was given narcotics by her PCP but they stopped prescribing them as she started to also take gabapentin, which she buys off the streets. She states that yesterday her back pain was severe so she got some Gabapentin and oxycodone off the street/from a friend. She took two caps of gabapentin yesterday morning but is unsure of the dose. Later in the day she took 3, 10 mg Tabs of baclofen and then had friends over. She took 5 mg PO Oxycodone and was also using a Marijuana Vape pen, of which she gets off the streets. She felt very tired/weak after this and sent her friends home and went to bed. She woke around 0400 this am and took her morning medications which consisted of baclofen, Duloxetine, and metoprolol. When asked, she states that she is currently experiencing hallucinations of seeing people in her room who are not actually there. She was a previous heavy drinker, now she drinks a bottle of Schnapps over 2 days approximately once a month. She states that her last drink was 1-2 weeks ago. She denies a history of serious alcohol withdrawal or withdrawal seizures. I asked if she has ever gone to physical therapy or pain management for better treatment of her back pain, she has not. I stressed how dangerous it is to get medications and drugs off the street as she cannot know if they are safe or laced with other substances and she expressed understanding, however, she also states that she needs to treat her back pain. She denies a recent history of IV drug use but does states that she has used IV drugs years before. When discussed other medications she uses for her back pain she denies NSAID use but does take Aspirin frequently for her low back pain. She is still smoking approximately 1/2 PPD of cigarettes. When asked, she states that she brought her medications and marijuana vape pen with her. I asked if she would give us consent to search her belongings and hold her medications and drugs at this time to prevent her from overdosing while admitted; she did give us consent. We discussed code status, she is a full code and wishes for her son to make medical decisions for her if she cannot make decisions herself. She denies recent fever, chills, chest pain, increased cough/sputum production, abd pain, dysuria, hematuria, melena, LE swelling and recent trauma. Please refer to Dr. Marquez's attestation for any changes to the treatment plan Allergies Allergy/AdvReac Type Severity Reaction Status Date / Time No Known Allergies Allergy Verified 03/13/23 14:13 Home Medications Medication Instructions Recorded Confirmed Type blood pressure kit-extra large #1 ea 10/26/19 03/13/23 Rx prazosin 1 mg capsule 1 mg PO HS PRN Nightmares 01/18/22 03/13/23 History metoprolol succinate 50 mg 50 mg PO QAM #90 tabs 04/30/22 03/13/23 Rx tablet,extended release 24 hr duloxetine 60 mg capsule,delayed 60 mg PO QAM #90 caps 05/03/22 03/13/23 Rx release pantoprazole 40 mg tablet,delayed 40 mg PO QAM 07/19/22 03/13/23 History release vitamin B complex 1 tab PO DAILY #30 tabs 07/26/22 03/13/23 Rx duloxetine 30 mg capsule,delayed 30 mg PO QAM #90 caps 08/06/22 03/13/23 Rx release albuterol sulfate 90 mcg/actuation 1 inh inhalation QID 90 days #25.5 12/28/22 03/13/23 Rx aerosol inhaler (ProAir HFA) grams baclofen 10 mg tablet 10 mg PO TID #360 tabs 03/07/23 03/13/23 Rx losartan 100 mg tablet 50 mg PO QAM #90 tabs 03/07/23 03/13/23 Rx gabapentin 300 mg capsule 300 mg PO Q8H PRN low back pain 03/13/23 03/13/23 Rx #90 caps Past Med/Surg History Medical History (Updated 03/06/23 @ 11:49 by Marcus Terrazas PA-C) Abdominal bloating Abdominal pain Depression Herpes zoster History of kidney stones Hyperlipidemia NO MEDS Hypertension Leaking of urine Left knee injury Lumbar stenosis with neurogenic claudication Macromastia Medical marijuana use Obesity Substance abuse ALCOHOL USE COUPLE TIMES A MONTH PER PT Temporomandibular joint disorder CLICKS BILAT-NO LOCKING Surgical History History of bilateral breast reduction surgery History of bilateral tubal ligation History of breast surgery History of cataract surgery History of delivery History of colonoscopy History of esophagogastroduodenoscopy (EGD) History of shoulder surgery History of tooth extraction Family History Mother Pulmonary fibrosis Stroke Father Arthritis Other No family history of adverse response to anesthesia Ovarian cancer Denies family history of Prostate cancer Myocardial infarction Breast cancer Colorectal cancer Colonic polyp Social History Smoking Status: Former smoker Tobacco Type: Cigarettes and E-cigarettes / Vaping Age Started Using Tobacco: 15; packs per day: 0.5; Cigarettes Per Day: 1 pack every 3 days; Second Hand Exposure: No; Hx Alcohol Use: Yes Alcohol type: hard liquor Alcohol Intake Frequency: 2-3 x/Week Alcohol Intake Frequency Comment: 1/2 bottle schnapps in a sitting, goes through 4 bottles per month Hx Substance Use: Yes Prescribed Medications: Marijuana Last Used Substance: Hours (ago) Last Used Substance Other:: Yesterday Substance Use Type Other:: Gabapentin, suboxone, oxycodone Preferred Language: Estonian Communication Ability: Effective Visual Impairment: No Limitations Hearing Ability: Normal Dietitian Teaching Required: No Beliefs That Will Affect Care: None marital status: Current Living Situation: Alone Current Living Situation Comment: Lives at home alone current occupational status: disabled Feels Safe at Home: Yes Childhood Exposure to Second-Hand Smoke: Yes Dental Care, Regularly: No Physical Activity Frequency: Does not Exercise Seatbelt Use: always Sunscreen Use: No Assistive Devices: Cane and Walker Physical Exam Physical Exam: Physical Exam: General: In no acute distress, stated age, chronically ill-appearing HEENT: Normocephalic, atraumatic, no scleral icterus, pupils around round, symmetrical, and reactive to light, dry mucus membranes, trachea midline, no thyromegaly Chest/Pulm: No respiratory distress, symmetrical chest expansion, expiratory wheezing noted throughout Cardiac: RRR, no murmurs noted Abdomen: Negative for ascites and bruising, normoactive bowel sounds, soft, non-tender to palpation throughout Musculoskeletal: Symmetrical and without signs of acute trauma, upper and lower extremities with full ROM, no atrophy, spasticity, or flaccidity Extremities: Radial, dorsalis pedis, and posterior tibial pulses are intact and symmetrical, no edema noted in the BL LE's Skin: Warm, dry, no rashes , lesions, or scars noted Neuro: Alert and oriented to person, and place, no focal defects, CN II-XII tested and intact, no tremors noted Psych: No acute distress, fatigued, no hallucinations noted during the exam, calm and cooperative during the exam Results & Data Results & Data Vital Signs (Past 12 Hours) Vital Signs Temp Pulse Pulse Resp BP BP Pulse Ox 03/06/23 09:46 60 03/06/23 09:02 63 16 106/88 95 03/06/23 08:02 61 16 118/67 98 03/06/23 07:12 58 L 16 127/67 96 03/06/23 06:08 94 03/06/23 06:08 36.8 C 60 16 135/73 94 03/06/23 05:49 73 O2 Del Method 03/06/23 09:46 03/06/23 09:02 Room Air 03/06/23 08:02 Room Air 03/06/23 07:12 Room Air 03/06/23 06:08 Room Air 03/06/23 06:08 Room Air 03/06/23 05:49 Laboratory Results Abnormal lab results 03/06/23 03/06/23 03/06/23 Range/Units 05:51 05:51 07:53 WBC 12.68 H (4.8-10.8) K/ul Neut # (Auto) 9.65 H (1.40-6.50) K/uL Kleberg # (Auto) 0.94 H (0.11-0.59) K/uL BUN 47 H (6-23) mg/dl Creatinine 3.08 H (0.6-1.2) mg/dl Glucose 118 H (70-99(Fasting)) mg/dl Magnesium 1.5 L (1.7-2.4) mg/dl Urine Appearance (Clear) Ur Leukocyte Esterase (Negative) U Epithel Cells (Auto) (0-5) /lpf U Marijuana (THC) Screen Pos H (Neg) 03/06/23 Range/Units 07:53 WBC (4.8-10.8) K/ul Neut # (Auto) (1.40-6.50) K/uL Kleberg # (Auto) (0.11-0.59) K/uL BUN (6-23) mg/dl Creatinine (0.6-1.2) mg/dl Glucose (70-99(Fasting)) mg/dl Magnesium (1.7-2.4) mg/dl Urine Appearance Cloudy A (Clear) Ur Leukocyte Esterase Trace H (Negative) U Epithel Cells (Auto) 10-20 H (0-5) /lpf U Marijuana (THC) Screen (Neg) Diagnostic Findings Chest X-Ray 03/06/23 05:28 XR chest 1V portable CLINICAL HISTORY: Chest pain, nonspecific TECHNIQUE: Single frontal radiograph of the chest was obtained. Comparison: Comparison is made to chest radiograph 09/09/2022 FINDINGS: Exam is limited by underpenetration. Calcified aortic knob is seen. The lungs are clear. No evidence of pleural effusion or pneumothorax. IMPRESSION: No acute chest disease. ACT 112: Negative or not required by law. Electronically signed by: Conner Nunez M.D. 03/06/2023 7:[address] 03/06/23 06:36 CT head/brain wo con CLINICAL HISTORY: confusion Technique: Contiguous axial CT images of the head were acquired from the base of the skull to the vertex without intravenous contrast administration. Images were viewed in brain, subdural and bone windows. Automated dose lowering techniques and/or adjustment according to patient size were utilized for this exam. Comparison: None available at the time of this dictation. Findings: The ventricles, basal cisterns, and cerebral sulci are normal. There is no acute intracranial hemorrhage or evidence of acute territorial infarction. Neither ma ss effect, shift of the midline structures, nor abnormal extra-axial fluid collections are shown. Opacification of a few ethmoid air cells noted. The orbits appear normal. There are no acute fractures of the calvaria or scalp swelling. Impression: No acute intracranial hemorrhage, no evidence of acute territorial infarction or other acute intracranial disease process. ACT 112: Negative or not required by law. Electronically signed by: Conner Nunez M.D. 03/06/2023 7:09 AM Abdomen/Pelvis CT 03/06/23 07:21 CT abd pelvis wo con CLINICAL HISTORY: n/v, new PAIGE TECHNIQUE: Helical axial images of the abdomen and pelvis were obtained. Automated dose lowering techniques and/or adjustment according to patient size were utilized for this exam. This exam was performed without intravenous contrast. CT DOSE: 839.28 mGy.cm COMPARISON: Comparison is made to CT abdomen pelvis 08/21/2020 FINDINGS: Exam is limited by patient motion. Lower chest: Multifocal airspace opacities are seen, new from prior exam. Liver: Subcentimeter hypodensities in the liver are too small to characterize. Gallbladder and biliary tree: No calcified gallstones. Normal caliber wall. No intra- or extrahepatic biliary ductal dilation. Pancreas: Unremarkable, no focal lesions. Spleen: Calcifications are noted in the spleen compatible with prior granuloma tous disease. Adrenals: Unremarkable. Kidneys and ureters: Nonobstructive nephrolithiasis is seen. No hydronephrosis is seen. Bladder: Unremarkable. Reproductive organs: Unremarkable. Bowel: The appendix is normal. Moderate hiatal hernia is seen. Lymph nodes Retroperitoneal: Subcentimeter shelli hepatis nodes are noted. Pelvic: Unremarkable. Mesenteric: Unremarkable. Peritoneum: Normal. Vessels: Atherosclerotic calcifications are seen. Abdominal wall: Unremarkable. Bones: Degenerative changes in the visualized spine. IMPRESSION: No evidence of hydronephrosis in this patient with acute kidney injury. ACT 112: Negative or not required by law. Electronically signed by: Conner Nunez M.D. 03/06/2023 7:56 AM ECG Additional Comments: Poor data quality, interpretation may be adversely affected Normal sinus rhythm Normal ECG When compared with ECG of 18-JAN-2022 11:40, No significant change was found Confirmed by Ghassan Mcintosh ([id number]) on 03/06/2023 9:25:23 AM Code Status & VTE Plan Code Status Full code VTE Prophylaxis Plan VTE Prophylaxis will be ordered: Yes Supervising Physician Co-Signing Physician Notes I personally saw and examined the patient. I verified all fierro points and agree with Marcus Terrazas PA-C with the following exceptions and/or additions: 67 year old female who presents to the ER with PG Care Time/CCT Total # of Minutes Spent Total Time Spent with Patient: Total time spent is greater than 50% in coordination of care (as documented) at patient's floor/unit and/or counseling patient: Coding [place] [address] INT INP/OBS CARE 3/75MIN Patient Type Established Medical Decision Making High Complexity Diagnoses Generalized weakness R53.1 PAIGE (acute kidney injury) N17.9 Hypomagnesemia E83.42 Polypharmacy Z79.899 Chronic back pain M54.9; G89.29 Depression with anxiety F41.8 Esophageal reflux K21.9 Hypertension I10 Tobacco abuse Z72.0
[2023-03-06] MEDS ORDERED: THIAMINE HCL 100 MG in SYRINGE 9 ML IV STA (10:50)
[2023-03-06] MEDS ORDERED: FOLIC ACID 1 MG in SYRINGE 9.8 ML IV STA (10:50)
[2023-03-06 11:22] LABS: Base Excess ABG -4.8 mEq/L (-9-1.8); HCO3 ABG 21 mmol/L (19-24); Oxygen Saturation ABG 98.5 % (90-95); PCO2 ABG 38 mmHg (35-46); PO2 ABG 92 mmHg (80-95); pH ABG 7.34 (7.35-7.45)
[2023-03-06 11:23] LABS: Allen Test Pos (Pos)
[2023-03-06 11:47] LABS: Acetaminophen < 3 ug/ml (10-30); Salicylate < 3.0 mg/dl (3.0-30)
[2023-03-06] MEDS: ALBUT/IPRATROP 3MG/0.5MG NEB 3 ML VIAL NEB SCH ×3 (11:50→19:41)
[2023-03-06] MEDS ORDERED: ONDANSETRON INJ 2 MG/ML 2 ML VIAL IV PRN (12:57)
[2023-03-06] MEDS: LACTATED RINGER'S 1,000 ML IV SCH ×2 (12:59→22:24)
[2023-03-06] MEDS ORDERED: MAGNESIUM SULFATE / D5W 1 GM/100 ML BAG IV ONE (13:15)
[2023-03-06] MEDS: LIDOCAINE 5% 1 PATCH TD SCH (13:47)
[2023-03-06] MEDS: HEPARIN SOD 5,000 UNIT/0.5 ML VIAL SQ SCH ×2 (13:48→20:17)
[2023-03-06] MEDS: NICOTINE 14 MG/24 HR PATCH TD SCH (13:51)
[2023-03-07] MEDS: ACETAMINOPHEN 325 MG TAB PO PRN ×2 (00:54→08:43)
[2023-03-07] MEDS: HEPARIN SOD 5,000 UNIT/0.5 ML VIAL SQ SCH ×2 (05:25→15:07)
[2023-03-07 06:27] LABS: Basophils # (auto) 0.07 K/uL (0-0.2); Basophils % (auto) 0.8 %; Eosinophils % (auto) 2.4 %; Hematocrit (blood only) 35.8 % (37.0-47.0); Immature Granulocytes # (auto) 0.05 K/uL (0.01-0.20); Immature Granulocytes % (auto) 0.6 %; Lymphocytes # (auto) 1.72 K/uL (1.2-3.4); Lymphocytes % (auto) 20.2 %; Mean Corpuscular Hemoglobin 29.1 pg (25.0-34.0); Mean Corpuscular Hgb Conc 33.5 g/dL (32.0-36.0); Mean Corpuscular Volume 86.9 fL (80.0-100.0); Mean Platelet Volume 10.6 fL (9.4-12.4); Monocytes # (auto) 0.72 K/uL (0.11-0.59); Monocytes % (auto) 8.5 %; Neutrophils # (auto) 5.75 K/uL (1.40-6.50); Neutrophils % (auto) 67.5 %; Platelet Count 233 K/uL (130-400); RDW Coefficient of Variation 14.5 % (11.5-14.5); Red Blood Count 4.12 M/uL (4.20-5.40); White Blood Count 8.51 K/ul (4.8-10.8)
[2023-03-07 06:46] LABS: Albumin Globulin Ratio 1.3 (0.9-2); Albumin Level 3.6 gm/dl (3.4-5.0); Bilirubin,Total 0.7 mg/dl (0.2-1.0); Calcium 8.8 mg/dl (8.6-10.3); Creatinine Clr Calc Pharmacy 60.5 ml/min; Est GFR (African American) 78.2 ml/min; Est GFR (Non-African American) 67.5 ml/min; Globulin 2.7 gm/dl (2.5-4.0); Magnesium 1.9 mg/dl (1.7-2.4); Potassium 4.3 mmol/L (3.5-5.1); Total Protein 6.3 gm/dl (6.0-8.3)
[2023-03-07] MEDS: ALBUT/IPRATROP 3MG/0.5MG NEB 3 ML VIAL NEB SCH (07:22)
--- NOTE | 2023-03-07 07:40 | Electrocardiogram Report ---
Test Reason : Blood Pressure : / mmHG Vent. Rate : 064 BPM Atrial Rate : 064 BPM P-R Int : 158 ms QRS Dur : 088 ms QT Int : 422 ms P-R-T Axes : 053 023 019 degrees QTc Int : 435 ms Poor data quality, interpretation may be adversely affected Normal sinus rhythm Normal ECG When compared with ECG of 06-MAR-2023 05:28, No significant change was found Confirmed by Ghassan Mcintosh ([id number]) on 03/07/2023 7:40:34 AM Referred By: REFERRED SELF Confirmed By:Ghassan Mcintosh
[2023-03-07] MEDS: LIDOCAINE 5% 1 PATCH TD SCH (08:39)
[2023-03-07] MEDS ORDERED: ALBUT/IPRATROP 3MG/0.5MG NEB 3 ML VIAL NEB PRN (08:54)
[2023-03-07] MEDS ORDERED: PANTOprazole 40 MG TAB PO SCH (09:00)
[2023-03-07] MEDS ORDERED: METOPROLOL SUCC 50MG EXT REL TAB PO SCH (09:00)
[2023-03-07] MEDS ORDERED: DULoxetine HCL 30 MG CAP PO SCH (09:00)
[2023-03-07] MEDS ORDERED: THIAMINE HCL 100 MG in SYRINGE 9 ML IV SCH (09:00)
[2023-03-07] MEDS ORDERED: FOLIC ACID 1 MG in SYRINGE 9.8 ML IV SCH (09:00)
[2023-03-07] MEDS: NICOTINE 14 MG/24 HR PATCH TD SCH (10:17)
--- NOTE | 2023-03-07 15:13 | Communication Note ---
Accidental overdose by marijuana, gabapentin, and oxycodone Plan as per below.
--- NOTE | 2023-03-07 15:15 | Discharge Summary ---
Date of Service March 07, 2023 Admission HPI Per Admitting Provider Kellen is a 67 year old female with a PMH significant for COPD, tobacco abuse, daily marijuana abuse, alcohol abuse, GERD, HTN, and Hyperlipidemia who presented to the [facility] ED on 03/06/23 with a chief complaint of generalized weakness and fatigue. In the ED the patient was found to be afebrile, hemodynamically stable, and stable on RA. Labs were remarkable for a WBC of 12.68 with left sh ift of 9.65, cr of 3.08 (baseline appears to be 0.90), mag of 1.5 otherwise stable electrolytes, glucose of 118, two negative high sen trops, UA , with cloudy appearance, trach leukocyte esterase, urine tox screen positive for marijuana, and covid [address] of the head was read as No acute intracranial hemorrhage, no evidence of acute territorial infarction or other acute intracranial disease process.. Chest xray was read as Exam is limited by underpenetration. Calcified aortic knob is seen. The lungs are clear. No evidence of pleural effusion or pneumothorax.. CT of the abd/pelvis without con was read as No evidence of hydronephrosis in this patient with acute kidney injury.. Of note, the CT of the abdomen and pelvis also showed Multifocal airspace opacities are seen, new from prior exam.. Prior to admission the patient was given 1L NSS and 1gm IV magnesium. At the time of the exam the patient was in a deep sleep, snoring loudly. I was able to wake her by calling her name and shaking her arm. When first waking the patient was confused but then became oriented. She states that she has chronic back pain which is not currently controlled. She previously was given narcotics by her PCP but they stopped prescribing them as she started to also take gabapentin, which she buys off the streets. She states that yesterday her back pain was severe so she got some Gabapentin and oxycodone off the street/from a friend. She took two caps of gabapentin yesterday morning but is unsure of the dose. Later in the day she took 3, 10 mg Tabs of baclofen and then had friends over. She took 5 mg PO Oxycodone and was also using a Marijuana Vape pen, of which she gets off the streets. She felt very tired/weak after this and sent her friends home and went to bed. She woke around 0400 this am and took her morning medications which consisted of baclofen, Duloxetine, and metoprolol. When asked, she states that she is currently experiencing hallucinations of seeing people in her room who are not actually there. She was a previous heavy drinker, now she drinks a bottle of Schnapps over 2 days approximately once a month. She states that her last drink was 1-2 weeks ago. She denies a history of serious alcohol withdrawal or withdrawal seizures. I asked if she has ever gone to physical therapy or pain management for better treatment of her back pain, she has not. I stressed how dangerous it is to get medications and drugs off the street as she cannot know if they are safe or laced with other substances and she expressed understanding, however, she also states that she needs to treat her back pain. She denies a recent history of IV drug use but does states that she has used IV drugs years before. When discussed other medications she uses for her back pain she denies NSAID use but does take Aspirin frequently for her low back pain. She is still smoking approximately 1/2 PPD of cigarettes. When asked, she states that she brought her medications and marijuana vape pe n with her. I asked if she would give us consent to search her belongings and hold her medications and drugs at this time to prevent her from overdosing while admitted; she did give us consent. We discussed code status, she is a full code and wishes for her son to make medical decisions for her if she cannot make decisions herself. She denies recent fever, chills, chest pain, increased cough/sputum production, abd pain, dysuria, hematuria, melena, LE swelling and recent trauma. Please refer to Dr. Marquez's attestation for any changes to the treatment plan Principal Diagnosis Accidental overdose by marijuana, gabapentin, and oxycodone Discharge Exam General: In no acute distress, stated age, chronically ill-appearing HEENT: Normocephalic, atraumatic, no scleral icterus, pupils around round, symmetrical, and reactive to light, dry mucus membranes, trachea midline, no thyromegaly Chest/Pulm: No respiratory distress, symmetrical chest expansion, expiratory wheezing noted throughout Cardiac: RRR, no murmurs noted Abdomen: Negative for ascites and bruising, normoactive bowel sounds, soft, non-tender to palpation throughout Musculoskeletal: Symmetrical and without signs of acute trauma, upper and lower extremities with full ROM, no atrophy, spasticity, or flaccidity Extremities: Radial, dorsalis pedis, and posterior tibial pulses are intact and symmetrical, no edema noted in the BL LE's Skin: Warm, dry, no rashes , lesions, or scars noted Neuro: Alert and oriented to person, and place, no focal defects, CN II-XII tested and intact, no tremors noted Psych: No acute distress, fatigued, no hallucinations noted during the exam, calm and cooperative during the exam Discharge Data Allergies Allergy/AdvReac Type Severity Reaction Status Date / Time No Known Allergies Allergy Verified 01/20/23 07:46 Consultations 03/06/23 10:10 ED Decision to Admit Stat Ordered Studies 03/06/23 06:36 CT head/brain wo con Stat 03/06/23 07:21 CT abd pelvis wo con Stat Hospital Course (1) Generalized weakness: Accidental overdose by marijuana, gabapentin, and oxycodone On admission: -Admit to med/tele on cont pulse oximetry -The patient is currently afebrile, hemodynamically stable, and stable on RA -At this time the patient's generalized weakness/fatigue is likely multifactorial and includes polypharmacy including recreation marijuana, hypercapnia due to COPD and possible undiagnosed AMAIRANI -No signs of infection at this time as she is without leukocytosis, fever, UTI, focal consolidation in the lungs, and acute abdominal pathology -CT of the head was negative for acute findings -The patient is currently using multiple prescription and non-prescription sedative medications for chronic back pain including gabapentin, oxycodone, marijuana, and baclofen -S/P 1L NSS in the ED, will continue on LR at 100 mL/hr x 2 bags -Monitor on tele/pulse oximetry -Will obtain STAT ABG, TSH, Salicylate and Acetaminophen levels for further evaluation -The patient gave consent to have security search her belongings for sedative medications and recreational drugs, they will be by shortly -Would consider having the patient evaluated by Pain Management for possible nerve blocks or ablation procedures which could help control her back pain, could also be a candidate for physical therapy -For now will order her a lidocaine patch and heating pad for her low back, can readdress pain regimen later today when the rest of her workup results and if she is more awake -Will need to monitor for sings of baclofen withdrawal -Will give her 100 mg IV thiamine and 1 gm IV folic acid now with her history of alcohol abuse, do not think is is currently in alcohol withdrawal -BL SCD's and Sub-Q heparin for DVT PPX At discharge: Explained to patient to not mix medications that are not prescribed to her as this can lead to sedation, respiratory failure and even . Patient showed understanding. Discharge medications as stated below. Added lidocaine patch. Patient may benefit from pain clinic followup. (2) PAIGE (acute kidney injury): -Patient noted to have a cr of 3.0 today, baseline appears to be 0.9 -Could be multifactorial including dehydration, polypharmacy, salicylate overdose -No signs of obstruction on CT of the abd/pelvis -improved with light IV hydration. (3) Hypomagnesemia: -Noted to be 1.5 today -Likely due to poor diet and recent vomiting this am -S/P 1 gm IV mag in the ED, will give another gram later today -Monitor am Mag level (4) Polypharmacy: -See generalized weakness (5) Chronic back pain: -Pain control as described in Generalized weakness -Would likely benefit from PT and pain management consult (6) Depression with anxiety: -Will reduce her dose of Cymbalta from 90 mg PO daily to 30 with her current GFR resume home dose at discharge (7) Esophageal reflux: -Continue pantoprazole (8) Hypertension: -Stable -Continue metoprolol -Not taking losartan anymore per the patient (9) Tobacco abuse: -Nicotine patch ordered -Continue to stress smoking cessation Plan The patient was discussed with Dr. Marquez at the time of the admission Total Time Total Time Spent Total Time Spent (In Minutes): 32 Discharge Plan Discharge Items Patient Disposition: Home - Home Health Services Reason For Visit: GENERALIZED WEAKNESS/FATIGUE Discharge Diagnosis: generalized weakness Activity: Resume your previous activity Non-emergency contact: Primary Care Provider Call non-emergency contact if: you have any medication questions Follow-up/Referrals: Libby Rubio CRNP [Primary Care Provider] - 03/13/23 2:00 pm (Follow up scheduled on 03/13/23 @ 2pm) Diet: Heart Healthy Addtl Attending Provider Instructions: recommend followup with PCP next week Do not take medicine that is not yours as this can lead to an overdose and you could even . Please use lidocaine patches: for 12 hours during day time and off during night time. If too expensive, use 4% lidocaine patches which are over the counter. Pending Studies at Discharge: No Stand-Alone Forms: My [facility], Smoking Cessation Medications and DC Order Prescriptions: New lidocaine 5 % Adhesive Patch,Medicated 1 patch transdermal QAM Qty: 15 0RF nicotine 7 mg/24 hr Patch 24 Hour 14 mg transdermal QAM Qty: 30 0RF Continued metoprolol succinate 50 mg tablet extended release 24 hr 50 mg PO QAM Qty: 90 3RF duloxetine 60 mg capsule,delayed release(DR/EC) 60 mg PO QAM Qty: 90 3RF vitamin B complex Tablet 1 tab PO DAILY Qty: 30 0RF duloxetine 30 mg capsule,delayed release(DR/EC) 30 mg PO QAM Qty: 90 3RF Rx Instructions: take with the 60 mg to equal 90 mg daily albuterol sulfate [ProAir HFA] 90 mcg/actuation HFA aerosol inhaler 1 inh inhalation QID 90 Days Qty: 25.5 1RF Rx Instructions: Use 1 puff, up to every 4 hours per day for wheezing. methylprednisolone [Medrol (Nathanael)] 4 mg tablets,dose pack See Rx Instructions .Route .COMPLEX Qty: 21 0RF Rx Instructions: Take per package directions; (DME) blood pressure kit-extra large kit See Rx Instructions .ROUTE .MEDSUPPLY Qty: 1 0RF Rx Instructions: As directed prazosin 1 mg capsule 1 mg PO HS PRN (Reason: Nightmares) pantoprazole 40 mg tablet,delayed release (DR/EC) 40 mg PO QAM Changed baclofen 10 mg tablet 10 mg PO TID Qty: 360 3RF losartan 100 mg tablet 50 mg PO QAM Qty: 90 3RF Discharge Orders: Discharge Order (Routine); Ordered 03/07/23 Ordered By: Jorgito Ruiz Admission Data Admit Date/Time: 03/06/23 10:18 Attending Provider: Jorgito Ruiz Admit Provider: Suman Marquez Primary Care Provider: Libby Rubio Other Providers: Suman Marquez ; [facility],Home Healthcare Other Interventions: Discharge Summary Assessment (RN) Last Done: 03/07/23 16:37 Coding Level of Care Code 26212 INP/OBS DISCH >30 MIN Diagnoses Generalized weakness R53.1 PAIGE (acute kidney injury) N17.9 Hypomagnesemia E83.42 Polypharmacy Z79.899 Chronic back pain M54.9; G89.29 Depression with anxiety F41.8 Esophageal reflux K21.9 Hypertension I10 Tobacco abuse Z72.0
[2023-03-08 03:27] LABS: Marijuana Quant, GCMS Urine 43 ng/mL (<5)
== END 2023-03-07 18:08 | disposition home health service (06) | DRG 918 ==
LOC: ED 05:22 → SUATTDRO 10:18 → 4W 10:18

== ENCOUNTER 2025-07-08 05:17 | Observation (INO) ==
--- NOTE | 2025-06-06 16:05 | PAT Medication Instructions ---
Medication Instructions Date of Service June 06, 2025 Home Medications Medication Instructions Recorded blood pressure kit-extra large #1 ea 10/26/19 ferrous sulfate 324 mg (65 mg 324 mg PO .COMPLEX #25 tabs 07/28/23 iron) tablet,delayed release baclofen 10 mg tablet 10 mg PO TID #360 tabs 08/16/24 duloxetine 30 mg capsule,delayed 30 mg PO QAM #90 caps 08/16/24 release duloxetine 60 mg capsule,delayed 60 mg PO QAM #90 caps 08/16/24 release losartan 50 mg tablet 50 mg PO QAM #90 tabs 08/16/24 pantoprazole 40 mg tablet,delayed 40 mg PO QAM #90 tabs 08/16/24 release albuterol sulfate 90 mcg/actuation 1 inh inhalation Q4H 90 days #3 09/27/24 aerosol inhaler Inhalers gabapentin 300 mg capsule 300 mg PO Q8H PRN low back pain 12/22/24 #270 caps prazosin 1 mg capsule 1 mg PO HS PRN ferrous sulfate 324 mg (65 mg iron) tablet,delayed release 324 mg PO .COMPLEX baclofen 10 mg tablet 10 mg PO TID duloxetine 30 mg capsule,delayed release 30 mg PO QAM duloxetine 60 mg capsule,delayed release 60 mg PO QAM losartan 50 mg tablet 50 mg PO QAM pantoprazole 40 mg tablet,delayed release 40 mg PO QAM albuterol sulfate 90 mcg/actuation aerosol inhaler 1 inh inhalation Q4H gabapentin 300 mg capsule 300 mg PO Q8H PRN cholecalciferol (vitamin D3) 25 mcg (1,000 unit) capsule 50 mcg PO QAM elderberry fruit 200 mg capsule 200 mg PO QAM metoprolol succinate 50 mg tablet,extended release 24 hr 50 mg PO QAM tzhxofhs-mqabgtia-wrx C 250 mg-herbal no.124 8.875 mg chewable tablet (Airborne (ascorbic acid)) 1 tab PO QAM multivitamin 1 tab PO QAM vitamin B complex 1 tab PO QAM Continue as directed albuterol sulfate 90 mcg/actuation aerosol inhaler 1 inh inhalation Q4H(please bring with you to hospital day of surgery if possible) STOP taking 2 weeks before surgery (or as soon as possible if surgery is within 2 weeks) elderberry fruit 200 mg capsule 200 mg PO QAM DO NOT take the morning of surgery ferrous sulfate 324 mg (65 mg iron) tablet,delayed release 324 mg PO .COMPLEX losartan 50 mg tablet 50 mg PO QAM cholecalciferol (vitamin D3) 25 mcg (1,000 unit) capsule 50 mcg PO QAM pbxhhemk-ggzbsfsz-aow C 250 mg-herbal no.124 8.875 mg chewable tablet (Airborne (ascorbic acid)) 1 tab PO QAM multivitamin 1 tab PO QAM vitamin B complex 1 tab PO QAM Take morning of surgery With a small sip of water, OTHERWISE NOTHING TO EAT OR DRINK AFTER MIDNIGHT: baclofen 10 mg tablet 10 mg PO TID duloxetine 30 mg capsule,delayed release 30 mg PO QAM duloxetine 60 mg capsule,delayed release 60 mg PO QAM pantoprazole 40 mg tablet,delayed release 40 mg PO QAM gabapentin 300 mg capsule 300 mg PO Q8H PRN(if needed) metoprolol succinate 50 mg tablet,extended release 24 hr 50 mg PO QAM Take evening before surgery prazosin 1 mg capsule 1 mg PO HS PRN(if needed) baclofen 10 mg tablet 10 mg PO TID albuterol sulfate 90 mcg/actuation aerosol inhaler 1 inh inhalation Q4H gabapentin 300 mg capsule 300 mg PO Q8H PRN(if needed) Other Notes If you have any questions please call us at [phone] or [phone] or [phone] or [phone]
--- NOTE | 2025-06-13 10:39 | Anesthesiology Consultation ---
Date of Service June 13, 2025 Assessment & Plan (1) Encounter for pre-operative examination: Plan - awaiting [place] PCP medical clearance regarding recent ER visit and newly inverted T waves on most recent EKG. Surgeon's office and patient made aware. - ER 06/10/25 [facility]: "...right lower quadrant abdominal pain...hypertension bradycardia...monitor showed rate of 50 bpm with normal sinus rhythm, per my interpretation...EKG image interpreted by myself showed normal sinus rhythm. Rate 74 BPM. QT 392. No acute ischemic changes- Laboratory workup interpreted by myself showed slight leukocytosis (WBC 11.41); normal lactate; stable el ectrolytes; normal AST/ALT; normal lipase- CT abdomen/pelvis with IV contrast negative for acute pathology in the abdomen or pelvis. Noted to have a normal appendix. Noted to have a moderate size hiatal hernia- UA negative for infection- Patient initially given 1g IV tylenol, 4 mg IV zofran and 2 mg IV morphine. On reassessment, she is still complaining of some discomfort. Given 1 L normal saline and 50 mg IV Toradol- On reassessment, patient feeling slightly improved. Unclear etiology for the patient's right lower quadrant pain at this time. Recommended staying well-hydrated the next few days and continuing to alternate Tylenol and ibuprofen. Instructed on her incidental finding of a hiatal hernia and recommended close follow-up with her primary care provider. Instructed on return precautions. Did discuss with the patient about PPI medications given her hiatal hernia. It does look like she has Protonix listed on her medication list, but the patient reports she does not take that. A prescription for omeprazole was sent to the patient's pharmacy...Patient remained stable throughout the visit..." - Outpatient joint pathway: Pending above. Chart Review Chart Review: Pending: Refer to Additional Notes / Consult section and Patient seen in Pre Admission Testing Teaching & Discussion Pre-Anesthesia Teaching/Discussion Notes: Instructed NPO after midnight before surgery, except medications with 15 cc of water. Medication instructions provided according to the PAT guidelines. History Surgery Operation Date: 07/08/25 10:00 Proposed Procedures p OP: Right Total Shoulder Arthroplasty Reverse - Irineo Parisi DO Height/Weight Height: 5 ft 1 in Weight: 83.4 kg Allergies Allergy/AdvReac Type Severity Reaction Status Date / Time No Known Allergies Allergy Verified 06/10/25 09:25 Medications Home Medications Medication Instructions Recorded Confirmed Last Taken blood pressure kit-extra large #1 ea 10/26/19 12/22/24 Unknown duloxetine 30 mg capsule,delayed 30 mg PO QAM #90 caps 08/16/24 06/10/25 06/09/25 release duloxetine 60 mg capsule,delayed 60 mg PO QAM #90 caps 08/16/24 06/10/25 06/09/25 release losartan 50 mg tablet 50 mg PO QAM #90 tabs 08/16/24 06/10/25 06/09/25 pantoprazole 40 mg tablet,delayed 40 mg PO QAM #90 tabs 08/16/24 06/10/25 06/09/25 release albuterol sulfate 90 mcg/actuation 1 inh inhalation Q4H 90 days #3 09/27/24 06/10/25 06/09/25 aerosol inhaler Inhalers cholecalciferol (vitamin D3) 25 50 mcg PO QAM 06/06/25 06/10/25 06/09/25 mcg (1,000 unit) capsule metoprolol succinate 50 mg 50 mg PO QAM 06/06/25 06/10/25 06/09/25 tablet,extended release 24 hr fijouvsc-yntaaneg-jmp C 250 1 tab PO QAM 06/06/25 06/10/25 06/09/25 mg-herbal no.124 8.875 mg chewable tablet (Airborne (ascorbic acid)) multivitamin 1 tab PO QAM 06/06/25 06/10/25 06/09/25 vitamin B complex 1 tab PO QAM 06/06/25 06/10/25 06/09/25 elderberry fruit 350 mg capsule 300 mg PO QAM 06/10/25 06/10/25 06/09/25 ferrous sulfate 324 mg (65 mg 324 mg PO DAILY 06/10/25 06/10/25 06/09/25 iron) tablet,delayed release gabapentin 300 mg capsule 300 mg PO Q8H low back pain 06/10/25 06/10/25 06/09/25 omeprazole 10 mg capsule,delayed 10 mg PO DAILY 30 days #30 caps 06/10/25 Unknown release Past Medical History Medical History Abdominal pain evaluated at [facility] ER 06/10/25-negative abd/pelvis CT-ongoing and intermittent- slight currently in PAT-was advised to return to ER if recurrence Chronic back pain Depression BAUM (dyspnea on exertion) Herpes zoster hx, "no breakouts for awhile" History of hypertension controlled, stable per pt History of kidney stones no sx Hx of gastroesophageal reflux (GERD) states will be picking up omeprazole today Hx of hyperlipidemia "borderline" Lumbar stenosis with neurogenic claudication Medical marijuana use Multilevel degenerative disc disease Substance abuse hx alcohol and substance use, "none currently" Temporomandibular joint disorder clicks bilat., no locking Urinary incontinence Patient denies h/o stroke, seizures, heart attack, heart failure, DM, blood clots/DVTs or blood transfusions. Exercise / Class Metabolic Activity III < 4 Walking/Shop/Light housework (shortness of breath with usual activities ongoing for several years-denies change or worsening; denies chest discomfort; ambulates with cane) Past Family History Family History Mother Pulmonary fibrosis Stroke Father Arthritis Other No family history of adverse response to anesthesia Ovarian cancer Denies family history of Prostate cancer Myocardial infarction Breast cancer Colorectal cancer Colonic polyp Past Surgical History Surgical History History of bilateral breast reduction surgery History of bilateral tubal ligation History of breast surgery benign tumor removed in left breast History of cataract surgery rt/lt History of delivery X2 History of colonoscopy 2020 History of esophagogastroduodenoscopy (EGD) History of shoulder surgery right shoulder History of tooth extraction all teeth Past Anesthesia History No Hx of Anesthesia Complications and No Family Hx of Anesthesia Complications History of PONV No Hx of PONV and No Hx of Motion Sickness Social History Smoking Status: Current every day smoker (-advised) Smoking cigarettes per day: 5-7 Do You Dip or Chew Tobacco: No Hx Alcohol Use: Yes Alcohol type: beer alcohol intake frequency: a few times a month Alcohol Intake Frequency Comment: ~1x/month Hx Substance Use: Yes substance use type: marijuana, crack/cocaine, heroin, amphetamines, hallucinogens, painkillers and methamphetamine Substance Use Type Other:: smokes the flower Last Used Substance: Hours (ago) Last Used Substance Other:: in the for all other substances; medical marijuana-daily Review of Systems Snoring, denies witnessed apneas. Patient denies chest pain, fever, chills, cough, wheezing, or palpitations. Physical Exam Vital Signs Vitals BP 146/83 P 58 TEMP 97.9 SP02 97% on RA RESP 18 Physical Patient resting comfortably in chair in no acute distress, alert and oriented, responding appropriately throughout visit Full cervical extension range of motion without pain TMD3.5 finger breadths Mallampati Score 2 Dentition: edentulous, full upper and lower dentures Lungs: normal respiratory effort. Good air movement, clear throughout to auscultation, no adventitious breath sounds Cardiac: regular rate and rhythm, no murmurs noted Carotid arteries: negative bruit bilat Lab Results Anesthesia Preop Results Results Anesthesia Widget: WBC 11.41 K/ul (4.8-10.8) H 06/10/25 Hgb 13.4 g/dl (12.0-16.0) 06/10/25 Hct 41.5 % (37.0-47.0) 06/10/25 Plt 247 K/uL (130-400) 06/10/25 Na 139 mmol/L (136-145) 06/10/25 K 4.6 mmol/L (3.5-5.1) 06/10/25 Cl 103 mmol/L (98-107) 06/10/25 CO2 30 mmol/L (21-32) 06/10/25 BUN 23 mg/dl (6-23) 06/10/25 Creat 0.85 mg/dl (0.6-1.2) 06/10/25 Glucose Level 97 mg/dl (70-99(Fasting)) 06/10/25 PT 9.8 Seconds (9.0-12.0) 06/13/25 PTT 26 Seconds (21-31) 06/13/25 INR 0.9 (0.9-1.1) 06/13/25 Urine Color Yellow 06/10/25 Urine Appearance Clear (Clear) 06/10/25 Urine pH 6.5 (4.5-7.5) 06/10/25 Urine Specific [place] 1.021 (1.000-1.030) 06/10/25 Urine Protein Negative (Negative) 06/10/25 Urine Glucose (UA) Negative (Negative) 06/10/25 Urine Ketones Trace (Negative) H 06/10/25 Urine Blood Negative (Negative) 06/10/25 Urine Nitrite Negative (Negative) 06/10/25 Urine Bilirubin Negative (Negative) 06/10/25 Urine Urobilinogen Negative (Negative) 06/10/25 Urine Leukocyte Esterase 1+ (Negative) H 06/10/25 Urine WBC (Auto) 11-20 /hpf (0-5) H 06/10/25 Urine RBC (Auto) 0-2 /hpf (0-2) 06/10/25 Urine Hyaline Casts (Auto) 0-2 /lpf (0-2) 06/10/25 Urine Epithelial Cells (Auto) 0-2 /hpf (0-2) 06/10/25 Urine Bacteria (Auto) None Seen (None Seen) 06/10/25 Blood Type A Positive 06/13/25 Antibody Screen NEGATIVE 06/13/25 Testing Electrocardiogram Date: 06/10/25 NSR, rate 60 bpm Inverted T waves have replaced nonspecific T wave abnormality in inferior leads vs 02/27/24 EKG Chest X-Ray Date: 06/13/25 Heart size and pulmonary vasculature are normal. No consolidation or pleural effusion. IMPRESSION: No acute findings. Pulmonary Function Test Date: 01/25/25 Normal spirometry without a significant postbronchodilator response. Lung volumes suggest moderate restrictive physiology. DLCO is normal Other Testing Abdomen pelvis CT 06/10/25 1. No acute process within the abdomen or pelvis. 2. Normal appendix. No bowel obstruction. No bowel wall thickening. 3. Moderate sized hiatal hernia.
--- NOTE | 2025-07-06 12:43 | History & Physical Report ---
Date of Service July 06, 2025 Assessment & Plan (1) Rotator cuff arthropathy of right shoulder: We will proceed with a right reverse shoulder arthroplasty. Postoperatively, she will be placed in the sling and will be part of her outpatient joint protocol. She plans to go to [facility] physical therapy after discharge. History of Present Illness Chief Complaint: Cuff tear arthropathy of the right shoulder. Primary Care Provider: MARGARITA Carter Kellen is a pleasant 69-year-old female who I did a right shoulder arthroscopy on about 10 years ago. She had a chronic retracted rotator cuff tear at that time. We just tried to do a simple clean-out procedure and it helped her for little bit. Unfortunately, over the years her shoulder pain has worsened. She has increased weakness. She has trouble doing things away from her body or up overhead. After failing years of conservative treatment, she has elected proceed with a right reverse shoulder arthroplasty. Allergies Allergy/AdvReac Type Severity Reaction Status Date / Time No Known Allergies Allergy Verified 06/27/25 08:00 Home Medications Medication Instructions Recorded Confirmed Type blood pressure kit-extra large #1 ea 10/26/19 12/22/24 Rx duloxetine 30 mg capsule,delayed 30 mg PO QAM #90 caps 08/16/24 06/27/25 Rx release duloxetine 60 mg capsule,delayed 60 mg PO QAM #90 caps 08/16/24 06/27/25 Rx release losartan 50 mg tablet 50 mg PO QAM #90 tabs 08/16/24 06/27/25 Rx pantoprazole 40 mg tablet,delayed 40 mg PO QAM #90 tabs 08/16/24 06/27/25 Rx release albuterol sulfate 90 mcg/actuation 1 inh inhalation Q4H 90 days #3 09/27/24 06/27/25 Rx aerosol inhaler Inhalers cholecalciferol (vitamin D3) 25 50 mcg PO QAM 06/06/25 06/27/25 History mcg (1,000 unit) capsule metoprolol succinate 50 mg 50 mg PO QAM 06/06/25 06/27/25 History tablet,extended release 24 hr lbjidsde-hjrecgjy-gll C 250 1 tab PO QAM 06/06/25 06/27/25 History mg-herbal no.124 8.875 mg chewable tablet (Airborne (ascorbic acid)) multivitamin 1 tab PO QAM 06/06/25 06/27/25 History vitamin B complex 1 tab PO QAM 06/06/25 06/27/25 History elderberry fruit 350 mg capsule 300 mg PO QAM 06/10/25 06/27/25 History ferrous sulfate 324 mg (65 mg 324 mg PO DAILY 06/10/25 06/27/25 History iron) tablet,delayed release gabapentin 300 mg capsule 300 mg PO Q8H low back pain 06/10/25 06/27/25 History omeprazole 10 mg capsule,delayed 10 mg PO DAILY 30 days #30 caps 06/10/25 Rx release Past Med/Surg History Problem List Rotator cuff arthropathy of right shoulder Dyspnea on exertion Tobacco abuse Chronic back pain Polypharmacy Regular alcohol consumption Loose stools Esophageal reflux Abdominal bloating Obesity (Acute) Multilevel degenerative disc disease (Acute) Lumbar stenosis with neurogenic claudication (Acute) Hypertension (Acute) Hyperlipidemia (Acute) NO MEDS Generalized osteoarthritis (Acute) Depression with anxiety (Acute) Medical History Urinary incontinence Lumbar stenosis with neurogenic claudication Multilevel degenerative disc disease History of hypertension controlled, stable per pt Hx of hyperlipidemia "borderline" Hx of gastroesophageal reflux (GERD) states will be picking up omeprazole today BAUM (dyspnea on exertion) Chronic back pain Temporomandibular joint disorder clicks bilat., no locking Herpes zoster hx, "no breakouts for awhile" History of kidney stones no sx Abdominal pain evaluated at [facility] ER 06/10/25-negative abd/pelvis CT-ongoing and intermittent- slight currently in PAT-was advised to return to ER if recurrence Depression Medical marijuana use Substance abuse hx alcohol and substance use, "none currently" Surgical History History of cataract surgery rt/lt History of colonoscopy 2020 History of esophagogastroduodenoscopy (EGD) History of bilateral breast reduction surgery History of bilateral tubal ligation History of tooth extraction all teeth History of breast surgery benign tumor removed in left breast History of shoulder surgery right shoulder History of delivery X2 Family History Mother Pulmonary fibrosis Stroke Father Arthritis Other No family history of adverse response to anesthesia Ovarian cancer Denies family history of Prostate cancer Myocardial infarction Breast cancer Colorectal cancer Colonic polyp Social History Smoking Status: Current every day smoker (-advised) Tobacco Type: Cigarettes Age Started Using Tobacco: 15; Age Quit Using Tobacco: 39; packs per day: 0.5; Cigarettes Per Day: 5-7; Second Hand Exposure: Yes (hx); Do You Dip or Chew Tobacco: No; Tobacco Cessation Education Requested by Patient: No Hx Alcohol Use: Yes Alcohol type: beer Alcohol Intake Frequency: 2-3 x/Week Alcohol Intake Frequency Comment: 1/2 bottle schnapps in a sitting, goes through 4 bottles per month Hx Substance Use: Yes Prescribed Medications: Marijuana Last Used Substance: Hours (ago) Last Used Substance Other:: in the 1969's for all other substances; medical marijuana-daily Substance Use Type Other:: smokes the flower Preferred Language: Greek Communication Ability: Effective Visual Impairment: No Limitations Hearing Ability: Normal Hand Decorator Required: No Beliefs That Will Affect Care: None marital status: Current Living Situation: Alone Current Living Situation Comment: Lives at home alone current occupational status: disabled Other Information That Helps Us Care for You: No Feels Safe at Home: Yes Safety Concerns: Feels Safe At This Time Childhood Exposure to Second-Hand Smoke: Yes Diet: regular Dental Care, Regularly: No Physical Activity Frequency: Does not Exercise Seatbelt Use: always Sunscreen Use: No Assistive Devices: Denture - Upper, Denture - Lower and Glasses Assistive Devices Comment: reading glasses prn Review of Systems All systems reviewed & are unremarkable except as noted in HPI & below. Physical Exam On physical exam of the right shoulder, she has about 110 degrees of forward elevation 110 degrees of abduction. She has 4-5 strength throughout.. Constitutional WD/WN, vitals as above Eyes PERRL, conjunctivae normal, anicteric sclerae ENMT external ear and nose normal, oropharynx normal Neck trachea midline, no thyromegaly Respiratory normal respiratory effort Cardiovascular RRR, no murmur, no edema Gastrointestinal (Abdomen) normal bowel sounds, soft, nontender, no hepatosplenomegaly Psychiatric A+Ox3, euthymic affect Results & Data Results & Data Laboratory Results . Diagnostic Findings X-rays of the right shoulder show superior migration of the humeral head on the glenoid.. PG Care Time/CCT Total # of Minutes Spent Total Time Spent with Patient: Total time spent is greater than 50% in coordination of care (as documented) at patient's floor/unit and/or counseling patient: Coding Level of Care Code None Diagnoses Rotator cuff arthropathy of right shoulder M12.811
[2025-07-08] MEDS: FAMOTIDINE 20 MG TAB PO SCH (06:03)
[2025-07-08] MEDS: GABAPENTIN 300 MG CAP PO SCH (06:03)
[2025-07-08] MEDS ORDERED: BUPIVACAINE 0.5 % 5 MG/1 ML PF 10ML VIAL ONE (06:03)
[2025-07-08] MEDS: dexAMETHasone**PF** 10 MG/ML VIAL IV SCH (06:03)
[2025-07-08] MEDS ORDERED: LIDOCAINE 2% 2 ML VIAL/AMP(20MG/ML) INFIL ONE (06:03)
[2025-07-08] MEDS: ACETAMINOPHEN 500 MG TAB PO SCH ×2 (06:03→14:30)
[2025-07-08] MEDS: LR 60ML/HR IV SCH (06:04)
[2025-07-08] MEDS: LR 15ML/HR IV SCH (06:04)
[2025-07-08] MEDS ORDERED: MIDAZOLAM HCL 1 MG/ML 2ML VIAL ONE (06:39)
[2025-07-08] MEDS ORDERED: PROPOFOL IV EMULSION 10 MG/ML 20 ML VIAL IV ONE (06:41)
--- NOTE | 2025-07-08 06:45 | History & Physical Bridge Note ---
Date of Service July 08, 2025 History & Physical Bridge Note I have examined the patient, reviewed the History & Physical and in the interval since the performance of the History & Physical I have noted the following changes of clinical significance: no changes noted
[2025-07-08] MEDS: TRANEXAMIC ACID 1,000 MG **IV Pre-op IV SCH (06:49)
[2025-07-08] MEDS ORDERED: DEXAMETHASONE SOD INJ 4 MG/ML VIAL ONE (07:09)
[2025-07-08] MEDS ORDERED: ROCURONIUM BROMIDE 10 MG/ML 5 ML VIAL IV ONE (07:09)
[2025-07-08] MEDS ORDERED: KETAMINE HCL 10MG/ML SYR ONE (07:21)
[2025-07-08] MEDS ORDERED: ONDANSETRON INJ 2 MG/ML 2 ML VIAL ONE (07:27)
[2025-07-08] MEDS ORDERED: ePHEDrine sulfate 50 MG/5 ML SYR ONE ×2 (07:27→07:43)
[2025-07-08] MEDS ORDERED: ATROPINE SULFATE 0.1 MG/ML 10ML SYR IV PRN ×2 (07:31→07:32)
[2025-07-08] MEDS ORDERED: PROMETHAZINE HCL 6.25 MG in SODIUM CHLORIDE 0.9% 50 ML IV PRN (07:32)
[2025-07-08] MEDS ORDERED: HYDROmorphone INJ 2 MG/ML SYR/VIAL IV PRN (07:32)
[2025-07-08] MEDS ORDERED: PHENYLEPHRINE 100MCG/ML 5ML SYR ONE (07:43)
[2025-07-08] MEDS: ROPIV 0.5% 246mg, Ketorolac 30mg, EPINEPHrine 0.5mg in NSS INFIL SCH (07:48)
[2025-07-08] MEDS: ORTHO JOINT ANESTHETIC ONE (08:05)
--- NOTE | 2025-07-08 08:08 | Operative Report ---
PG Post Operative Report Pre & Post Diagnosis Operation Date: 07/08/25 07:00 Pre-Op Diagnosis: Rotator Cuff Arthropathy of Right Shoulder Post-Op Diagnosis: Rotator Cuff Arthropathy of Right Shoulder I identified the patient and participated in the time-out.: Yes Procedure Operation Date: 07/08/25 07:00 Actual Procedures p Right Reverse Total Shoulder Arthroplasty(Right) - Irineo Parisi DO Surgeon Irineo Parisi DO Processing Inspector Hosea Herring PA-C Estimated Blood Loss 200 Findings Consistent with Post-Op Diagnosis Specimens Right humeral head Description of Procedure Implants used: I used a [employer]omet Comprehensive reverse total shoulder arthroplasty system with a size 7 press fit micro humeral stem, a +6 offset humeral tray and a standard humeral bearing, a 25 mm small augment baseplate with a 6.5 mm central screw and superior and inferior locking screws, and a size 36 mm eccentric glenosphere. Kellen arrived at [facility] for the above procedure. She was seen in the preoperative holding area and the operative extremity was identified and signed. She was given a preoperative antibiotic, TXA, and an interscalene nerve block. She was taken back to the operating room, laid on table in supine position, and put under general anesthesia. She was then put into the beachchair position. The shoulder was then prepped and draped in sterile fashion. A timeout was done and the patient and the operative extremity was properly identified. A deltopectoral approach was used. Dissection was taken down through the fascia and the deltoid was retracted laterally and the conjoined tendon was retracted medially. The anterior shoulder was exposed. The biceps tendon was chronically torn. The subscapularis was then directly released off the lesser tuberosity with a peel technique. The inferior capsule was released and the humeral head was dislocated. A canal finding reamer was sent down the center of the humeral canal. Sequential reaming up to a size 7 reamer was done. Off that reamer, a proximal humeral resection guide was placed. The proximal humerus was resected at 135 of inclination and 25 of retroversion. Osteophytes were then removed and the glenoid was exposed. Time was spent doing a complete capsular and labral release. The glenoid guide was then placed in the inferior aspect of the glenoid. A 3.2 mm Steinmann pin was then placed into the glenoid vault at 10 of inclination. The glenoid baseplate was then reamed. The final size 25 mm small augment ba seplate was then impacted in the place. A 6.5 mm central screw was then placed followed by superior and inferior locking screws. A 36 mm eccentric glenosphere was then impacted into place. Surrounding soft tissues were then injected with 100 cc an orthopedic pain control cocktail. The proximal humerus was then exposed. Sequential broaching of the humerus up to a size 7 broach was done. Off that broach a +6 offset humeral tray was trialed. The shoulder was then reduced, brought through a full range of motion, and felt to be stable. The shoulder was then dislocated and the broach was removed. The final size 7 micro press-fit humeral stem was then impacted into place. A standard humeral bearing was then snapped onto a +6 offset humeral tray. The humeral tray was then impacted onto the humeral stem. The shoulder was once again reduced, brought through a full range of motion, and felt to be stable. The subscapularis was poor quality and unable to be repaired. A dilute betadyne lavage was then done for 3 minutes. The joint was then irrigated with normal saline solution. Hemostasis was obtained. The interval was closed with 2-0 Vicryl suture. The skin was then closed with 2-0 Vicryl and yeny. A Silverlon dressing was placed and the arm was rested in a regular arm sling. She was then extubated and transferred to a hospital bed. She taken to the postanesthesia care unit in stable condition. She tolerated the procedure well. Hosea Herring PA-C, was present for the entire procedure. He was critical for patient positioning, prepping, draping, retraction exposure, wound closure and application of sterile dressing. I attest to the content of the Intraoperative Record and any orders documented therein. Any exceptions are noted below.
[2025-07-08] MEDS ORDERED: SUGAMMADEX SODIUM 200 MG/2 ML VIAL IV ONE (08:10)
--- NOTE | 2025-07-08 09:17 | XRay Report ---
XR shoulder RT min 2V routine CLINICAL HISTORY: Post shoulder surgery COMPARISON: None FINDINGS: Right shoulder prosthesis shows no hardware complication. There is expected soft tissue ga s. There is AC joint osteoarthritis. IMPRESSION: Unremarkable postoperative exam. ACT 112: Negative or not required by law. Electronically signed by: Storm Stacy M.D. 07/08/2025 9:15 AM
--- NOTE | 2025-07-08 09:18 | XRay Report ---
XR chest 1V portable CLINICAL HISTORY: intraoperative arrhythmias COMPARISON STUDY: 06/13/2025 FINDINGS: There is mild cardiomegaly without pulmonary vascular congestion. Inspiration is shallow. T here is dense consolidation with air bronchograms at the right lower lung and there is small area of consolidation medial left lung base with air bronchograms. No pneumothorax seen. IMPRESSION: Bilateral lower lung pneumonia versus atelectasis. ACT 112: Negative or not required by law. Electronically signed by: Storm Stacy M.D. 07/08/2025 9:16 AM
[2025-07-08 09:48] LABS: Anion Gap 6.0 (3-11); Blood Urea Nitrogen 17.0 mg/dl (6-23); Calcium 8.5 mg/dl (8.6-10.3); Carbon Dioxide 28.0 mmol/L (21-32); Chloride 104.0 mmol/L (98-107); Creatinine Clr Calc Pharmacy 58.8 ml/min; Glucose 172.0 mg/dl (70-99(Fasting)); Potassium 4.6 mmol/L (3.5-5.1); Sodium 138.0 mmol/L (136-145)
[2025-07-08] MEDS ORDERED: ALBUTEROL HFA 8 GM INHALER INH ONE (10:08)
[2025-07-08] MEDS ORDERED: GLYCOPYRROLATE 0.2 MG/ML VIAL ONE (10:08)
--- NOTE | 2025-07-08 10:11 | Anesthesiology Progress Note ---
Date of Service July 08, 2025 Anesthesia Post Procedure Vital Signs Vital Signs: Temp Pulse Resp BP Pulse Ox O2 Del Method O2 Flow Rate 07/08/25 10:00 63 17 93/64 L 92 Nasal Cannula 2 07/08/25 09:50 62 18 110/71 91 Nasal Cannula 2 07/08/25 09:40 66 19 101/65 92 Nasal Cannula 2 07/08/25 09:30 36.5 C 66 22 111/57 L 92 Nasal Cannula 2 07/08/25 09:20 69 14 114/64 92 Nasal Cannula 2 07/08/25 09:10 73 21 114/46 L 92 Nasal Cannula 2 07/08/25 09:00 74 26 H 130/88 93 Nasal Cannula 2 07/08/25 08:50 78 23 131/78 94 Oxymask 4 07/08/25 08:44 36 C L 81 22 137/87 98 Oxymask 6 07/08/25 05:52 36.8 C 53 L 18 151/65 H 98 Room Air Transfer of Care Handoff Completed per policy Notes Mental Status: alert / awake / arousable and participated in evaluation Nausea / Vomiting: adequately controlled Pain: adequately controlled Airway Patency, RR, SpO2: stable & adequate BP & HR: stable & adequate Hydration State: stable & adequate Anesthetic Complications: no major complications apparent and Pt Satisfied with anesthetic care
[2025-07-08] MEDS ORDERED: ONDANSETRON INJ 2 MG/ML 2 ML VIAL IV PRN (12:00)
[2025-07-08] MEDS ORDERED: HYDROmorphone INJ 0.5 MG/0.5 ML SYR IV PRN (12:00)
[2025-07-08] MEDS ORDERED: METOCLOPRAMIDE HCL INJ 5 MG/ML 2 ML VIAL IV PRN (12:00)
[2025-07-08] MEDS ORDERED: NALOXONE HCL 0.4 MG/1 ML VIAL/CARP IV PRN (12:00)
[2025-07-08] MEDS ORDERED: MAGNESIUM HYDROXIDE SUSP 30 ML UDC PO PRN (12:00)
--- NOTE | 2025-07-08 12:09 | Hospitalist Consultation ---
Date of Consultation July 08, 2025 Assessment & Plan (1) Rotator cuff arthropathy of right shoulder: (2) Bradycardia: (3) Hypertension: Plan This is a 70 year old female with past medical history of HTN, HLD, GERD who presented to the hospital for an elective shoulder surgery with Dr. Parisi on 07/08. #Bradycardia Following procedure, patient experienced 6 second pause on EKG & was given a dose of atropine. Since then pulse has been running 56-60 - continue to monitor on telemetry Is on metoprolol succinate outpatient for HTN - continue hold parameters w/ HR of 60 & SBP < 100. Will require Holter monitor outpatient which can be arranged by PCP. TSH mildly elevated at 4.545 w/ a pending Free T4 CXR w/ b/l atelectasis --> recommend aggressive incentive spirometer #Rotator cuff arthropathy of right shoulder s/p right shoulder replacement w/ Dr. Parisi 07/08. DVT prophylaxis, Pain regimen, bowel regimen, PT/OT per primary team. #HTN - Continue metoprolol w/ hold parameters, hold Losartan #GERD - continue PPI #Mental health - Continue Cymbalta Thank you for this consultation, we will continue to follow along. Please reach out with questions or concerns. Consultation was discussed w/ Dr. Farr at time of encounter. Supervising Physician Co-Signing Physician Notes The patient was seen by me. The chart was reviewed. Case discussed with RICHELLE Price. Agree with assessment and plan History of Present Illness Attending Physician: Irineo Parisi, History of Present Illness This is a 70 year old female with past medical history of HTN, HLD, GERD who presented to the hospital for an elective shoulder surgery with Dr. Parisi on 07/08. Kellen was seen & examined following her surgery. Per nursing, the patient was about to be extubated & experienced a bronchospasm, she was then given a dose of albuterol & her heart rate paused for 6 seconds. She is being admitted overnight for observation. Kellen reports she is feeling well after her surgery. She denies any previous cardiac events. She has a history of hypertension & is compliant with her outpatient medications. She denies any CP or SOB. She was on 2L of nasal cannula at time of encounter as she had been recently moved to her room from the PACU. Denies any cough. Reports her RLQ abdominal pain she had been experiencing outpatient has not been bothering her recently. She denied any further complaints. Allergies Allergy/AdvReac Type Severity Reaction Status Date / Time No Known Allergies Allergy Verified 07/08/25 05:44 Home Medications Medication Instructions Recorded Confirmed Type blood pressure kit-extra large #1 ea 10/26/19 12/22/24 Rx duloxetine 30 mg capsule,delayed 30 mg PO QAM #90 caps 08/16/24 07/08/25 Rx release duloxetine 60 mg capsule,delayed 60 mg PO QAM #90 caps 08/16/24 07/08/25 Rx release losartan 50 mg tablet 50 mg PO QAM #90 tabs 08/16/24 07/08/25 Rx albuterol sulfate 90 mcg/actuation 1 inh inhalation Q4H 90 days #3 09/27/24 07/08/25 Rx aerosol inhaler Inhalers cholecalciferol (vitamin D3) 25 50 mcg PO QAM 06/06/25 07/08/25 History mcg (1,000 unit) capsule metoprolol succinate 50 mg 50 mg PO QAM 06/06/25 07/08/25 History tablet,extended release 24 hr (Toprol XL) yfqdoxyk-xywdjtrl-blh C 250 1 tab PO QAM 06/06/25 07/08/25 History mg-herbal no.124 8.875 mg chewable tablet (Airborne (ascorbic acid)) multivitamin 1 tab PO QAM 06/06/25 07/08/25 History vitamin B complex 1 tab PO QAM 06/06/25 07/08/25 History elderberry fruit 350 mg capsule 300 mg PO QAM 06/10/25 07/08/25 History ferrous sulfate 324 mg (65 mg 324 mg PO DAILY 06/10/25 07/08/25 History iron) tablet,delayed release gabapentin 300 mg capsule 300 mg PO Q8H low back pain 06/10/25 07/08/25 History omeprazole 10 mg capsule,delayed 10 mg PO DAILY 30 days #30 caps 06/10/25 07/08/25 Rx release pantoprazole 40 mg tablet,delayed 40 mg PO QAM 07/08/25 07/08/25 History release (Protonix) Patient History Medical History Urinary incontinence Lumbar stenosis with neurogenic claudication Multilevel degenerative disc disease History of hypertension controlled, stable per pt Hx of hyperlipidemia "borderline" Hx of gastroesophageal reflux (GERD) states will be picking up omeprazole today BAUM (dyspnea on exertion) Chronic back pain Temporomandibular joint disorder clicks bilat., no locking Herpes zoster hx, "no breakouts for awhile" History of kidney stones no sx Abdominal pain evaluated at [facility] ER 06/10/25-negative abd/pelvis CT-ongoing and intermittent- slight currently in PAT-was advised to return to ER if recurrence Depression Medical marijuana use Substance abuse hx alcohol and substance use, "none currently" Surgical History History of cataract surgery rt/lt History of colonoscopy 2020 History of esophagogastroduodenoscopy (EGD) History of bilateral breast reduction surgery History of bilateral tubal ligation History of tooth extraction all teeth History of breast surgery benign tumor removed in left breast History of shoulder surgery right shoulder History of delivery X2 Family History Mother Pulmonary fibrosis Stroke Father Arthritis Other No family history of adverse response to anesthesia Ovarian cancer Denies family history of Prostate cancer Myocardial infarction Breast cancer Colorectal cancer Colonic polyp Social History Smoking Status: Current every day smoker Tobacco Type: Cigarettes Age Started Using Tobacco: 15; Age Quit Using Tobacco: 39; packs per day: 0.5; Cigarettes Per Day: 8; Second Hand Exposure: Yes (hx); Do You Dip or Chew Tobacco: No; Tobacco Cessation Education Requested by Patient: No Hx Alcohol Use: Yes Alcohol type: beer Alcohol Intake Frequency: 2-3 x/Week Alcohol Intake Frequency Comment: 1/2 bottle schnapps in a sitting, goes through 4 bottles per month Hx Substance Use: Yes Prescribed Medications: Marijuana Last Used Substance: Hours (ago) Last Used Substance Other:: 07/07/25 2100 Substance Use Type Other:: smokes the flower Preferred Language: Nepalese Communication Ability: Effective Visual Impairment: No Limitations Hearing Ability: Normal Industrial Hygiene Technician Required: No Beliefs That Will Affect Care: None marital status: Current Living Situation: Alone Current Living Situation Comment: Lives at home alone current occupational status: disabled Other Information That Helps Us Care for You: No Feels Safe at Home: Yes Safety Concerns: Feels Safe At This Time Childhood Exposure to Second-Hand Smoke: Yes Diet: regular Dental Care, Regularly: No Physical Activity Frequency: Does not Exercise Seatbelt Use: always Sunscreen Use: No Assistive Devices: Denture - Upper, Denture - Lower and Glasses Assistive Devices Comment: reading glasses prn Physical Exam Constitutional: WD/WN, vitals as above Eyes: PERRL, conjunctivae normal, anicteric sclerae Respiratory: normal respiratory effort, lungs clear to auscultation Cardiovascular: RRR, no murmur, no edema Gastrointestinal (Abdomen): normal bowel sounds, soft, nontender, no hepatosplenomegaly Neurologic: PERRL, EOMI, accommodation nl, no face palsy, no dysarthria Psychiatric: A+Ox3, euthymic affect Results & Data Results & Data Vital Signs (Past 12 Hours) Vital Signs Temp Pulse Resp BP Pulse Ox O2 Del Method O2 Flow Rate 07/08/25 11:30 59 L 23 122/61 92 Nasal Cannula 2 07/08/25 11:00 60 18 123/62 93 Nasal Cannula 2 07/08/25 10:45 60 21 112/56 L 92 Nasal Cannula 2 07/08/25 10:30 60 19 105/65 92 Nasal Cannula 2 07/08/25 10:15 62 18 113/66 91 Nasal Cannula 2 07/08/25 10:00 63 17 93/64 L 92 Nasal Cannula 2 07/08/25 09:50 62 18 110/71 91 Nasal Cannula 2 07/08/25 09:40 66 19 101/65 92 Nasal Cannula 2 07/08/25 09:30 36.5 C 66 22 111/57 L 92 Nasal Cannula 2 07/08/25 09:20 69 14 114/64 92 Nasal Cannula 2 07/08/25 09:10 73 21 114/46 L 92 Nasal Cannula 2 07/08/25 09:00 74 26 H 130/88 93 Nasal Cannula 2 07/08/25 08:50 78 23 131/78 94 Oxymask 4 07/08/25 08:44 36 C L 81 22 137/87 98 Oxymask 6 07/08/25 05:52 36.8 C 53 L 18 151/65 H 98 Room Air PG Care Time/CCT Total # of Minutes Spent Total Time Spent with Patient: Total time spent is greater than 50% in coordination of care (as documented) at patient's floor/unit and/or counseling patient: Coding Level of Care Code 91096 IN/OBS CONSULT LVL 3,45M Diagnoses Rotator cuff arthropathy of right shoulder M12.811 Bradycardia R00.1 Hypertension I10
[2025-07-08] MEDS: BUPIVACAINE LIPOSOME 1.3% 133 MG/10 ML VIAL ONE (12:16)
[2025-07-08] MEDS: KETOROLAC TROMETHAMINE 15 MG/ML VIAL IV SCH (13:00)
[2025-07-08] MEDS: MULTIVITAMIN TAB PO SCH (13:00)
[2025-07-08] MEDS: DOCUSATE SODIUM 100 MG CAP PO SCH (13:00)
[2025-07-08] MEDS: SODIUM CHLORIDE 0.9% 1,000 ML IV SCH (13:00)
[2025-07-08] MEDS: LOSARTAN POTASSIUM 50 MG TAB PO SCH (13:00)
[2025-07-08 13:07] LABS: Thyroid Stimulating Hormone 4.545 uIu/ml (0.300-4.500)
--- NOTE | 2025-07-08 15:18 | Electrocardiogram Report ---
Test Reason : Blood Pressure : */* mmHG Vent. Rate : 80 BPM Atrial Rate : 80 BPM P-R Int : 172 ms QRS Dur : 96 ms QT Int : 390 ms P-R-T Axes : 31 2 -14 degrees QTcB Int : 449 ms Normal sinus rhythm Nonspecific ST and T wave abnormality Abnormal ECG When compared with ECG of 10-Jun-2025 07:43, Nonspecific T wave abnormality now evident in Anterolateral leads Confirmed by Dale Lam ([id number]) on 07/08/2025 3:17:34 PM Referred By: Irineo Parisi Confirmed By: Dale Lam
--- NOTE | 2025-07-08 15:27 | Electrocardiogram Report ---
Test Reason : Blood Pressure : */* mmHG Vent. Rate : 54 BPM Atrial Rate : 54 BPM P-R Int : 174 ms QRS Dur : 86 ms QT Int : 426 ms P-R-T Axes : 45 27 22 degrees QTcB Int : 403 ms Sinus bradycardia Low voltage QRS Borderline ECG When compared with ECG of 08-Jul-2025 08:46, (unconfirmed) Vent. rate has decreased by [address] no longer depressed in Anterior leads Nonspecific T wave abnormality has replaced inverted T waves in Inferior leads Nonspecific T wave abnormality no longer evident in Anterolateral leads Confirmed by Dale Lam ([id number] on 07/08/2025 3:27:43 PM Referred By: Irineo Parisi Confirmed By: Dale Lam
--- NOTE | 2025-07-08 17:24 | Cardiology Consultation ---
Date of Consultation July 08, 2025 Assessment & Plan (1) Bradycardia: Plan 1. Sinus arrest: The available recording in her record suggests a sinus arrest resulting in reported 6-second pause. The circumstances surrounding this event appear to have involved extubation. This was likely situational and involved transient high vagal tone. I do not think this represents a clinical concern. She did not endorse symptoms of frequent dizziness or presyncope. While she is quite sedentary, she did not appear to have symptoms associated with activity. I do not think there is a contraindication to resuming her outpatient metoprolol. This seems to be a well-defined episode associated with anesthesia and extubation. I do not think she requires any additional outpatient monitoring. In the absence of any additional arrhythmias overnight I think she can be safely discharged on her usual medical regimen. I do not believe she requires any follow-up in cardiology unless she has new symptoms. History of Present Illness Reason for Consultation: Sinus arrest Requesting Physician: Nevaeh Cruz Attending Physician: Irineo Parisi DO History of Present Illness Patient is a 70-year-old woman without a known history of cardiac disease who was undergoing a right shoulder replacement earlier today. Seems that subsequent to the operation she was being extubated and experienced an episode of bradycardia and reported sinus arrest. The episode itself was treated with atropine. Subsequently the patient maintained a reasonable heart rate and blood pressure. He was transferred to the telemetry floor for observation. History of this event was obtained entirely from the written anesthesia report and information that was relayed to the nursing staff at the time of patient report. The patient states that she has occasional episodes of dizziness, but these tend to be quite transient and minor in nature. She does a lot of gardening and did not endorse frequent symptoms of orthostatic hypotension. She does recall 1 episode of syncope years ago when she apparently took too much gabapentin. While she is very sedentary, she does not endorse any particular symptoms associated with activity. She does not have limiting dyspnea. She has no exer tional chest pain. She has not been aware of any palpitations. She does not have any home monitors to check her heart rate or blood pressure. Allergies Allergy/AdvReac Type Severity Reaction Status Date / Time No Known Allergies Allergy Verified 07/08/25 05:44 Home Medications Medication Instructions Recorded Confirmed Type blood pressure kit-extra large #1 ea 10/26/19 12/22/24 Rx duloxetine 30 mg capsule,delayed 30 mg PO QAM #90 caps 08/16/24 07/08/25 Rx release duloxetine 60 mg capsule,delayed 60 mg PO QAM #90 caps 08/16/24 07/08/25 Rx release losartan 50 mg tablet 50 mg PO QAM #90 tabs 08/16/24 07/08/25 Rx albuterol sulfate 90 mcg/actuation 1 inh inhalation Q4H 90 days #3 09/27/24 07/08/25 Rx aerosol inhaler Inhalers cholecalciferol (vitamin D3) 25 50 mcg PO QAM 06/06/25 07/08/25 History mcg (1,000 unit) capsule metoprolol succinate 50 mg 50 mg PO QAM 06/06/25 07/08/25 History tablet,extended release 24 hr (Toprol XL) dazcbtpn-ipqhmknz-imp C 250 1 tab PO QAM 06/06/25 07/08/25 History mg-herbal no.124 8.875 mg chewable tablet (Airborne (ascorbic acid)) multivitamin 1 tab PO QAM 06/06/25 07/08/25 History vitamin B complex 1 tab PO QAM 06/06/25 07/08/25 History elderberry fruit 350 mg capsule 300 mg PO QAM 06/10/25 07/08/25 History ferrous sulfate 324 mg (65 mg 324 mg PO DAILY 06/10/25 07/08/25 History iron) tablet,delayed release gabapentin 300 mg capsule 300 mg PO Q8H low back pain 06/10/25 07/08/25 History omeprazole 10 mg capsule,delayed 10 mg PO DAILY 30 days #30 caps 06/10/25 07/08/25 Rx release pantoprazole 40 mg tablet,delayed 40 mg PO QAM 07/08/25 07/08/25 History release (Protonix) Patient History Medical History Urinary incontinence Lumbar stenosis with neurogenic claudication Multilevel degenerative disc disease History of hypertension controlled, stable per pt Hx of hyperlipidemia "borderline" Hx of gastroesophageal reflux (GERD) states will be picking up omeprazole today BAUM (dyspnea on exertion) Chronic back pain Temporomandibular joint disorder clicks bilat., no locking Herpes zoster hx, "no breakouts for awhile" History of kidney stones no sx Abdominal pain evaluated at [facility] ER 06/10/25-negative abd/pelvis CT-ongoing and intermittent- slight currently in PAT-was advised to return to ER if recurrence Depression Medical marijuana use Substance abuse hx alcohol and substance use, "none currently" Surgical History History of cataract surgery rt/lt History of colonoscopy 2020 History of esophagogastroduodenoscopy (EGD) History of bilateral breast reduction surgery History of bilateral tubal ligation History of tooth extraction all teeth History of breast surgery benign tumor removed in left breast History of shoulder surgery right shoulder History of delivery X2 Family History Mother Pulmonary fibrosis Stroke Father Arthritis Other No family history of adverse response to anesthesia Ovarian cancer Denies family history of Prostate cancer Myocardial infarction Breast cancer Colorectal cancer Colonic polyp Social History Smoking Status: Current every day smoker Tobacco Type: Cigarettes Age Started Using Tobacco: 15; Age Quit Using Tobacco: 39; packs per day: 0.5; Cigarettes Per Day: 8; Second Hand Exposure: Yes (hx); Do You Dip or Chew Tobacco: No; Hx Alcohol Use: Yes Alcohol type: beer Alcohol Intake Frequency: 2-3 x/Week Alcohol Intake Frequency Comment: 1/2 bottle schnapps in a sitting, goes through 4 bottles per month Hx Substance Use: Yes Prescribed Medications: Marijuana Last Used Substance: Hours (ago) Last Used Substance Other:: 07/07/25 2100 Substance Use Type Other:: smokes the flower Preferred Language: Indian Communication Ability: Effective Visual Impairment: No Limitations Hearing Ability: [employer] Director Required: No Beliefs That Will Affect Care: None marital status: Current Living Situation: Alone Current Living Situation Comment: Lives at home alone current occupational status: disabled Feels Safe at Home: Yes Childhood Exposure to Second-Hand Smoke: Yes Diet: regular Dental Care, Regularly: No Physical Activity Frequency: Does not Exercise Seatbelt Use: always Sunscreen Use: No Assistive Devices: Denture - Upper, Denture - Lower and Glasses Review of Systems Review of Systems: Per HPI. Physical Exam Physical Exam: She is alert and oriented x3. Mood affect appear normal. She answered all questions appropriately. HEENT: Sclerae are anicteric. Pupils are equal and reactive to light and accommodation. Extraocular movements were intact. Neuro: Cranial nerves intact Lungs: Lungs are clear to auscultation bilaterally. There are no rales wheezes or rhonchi. She has normal respiratory effort without use of accessory muscles. There is normal pulmonary excursion. Cardiac: The rhythm was regular. S1 and S2 were normal. There are no murmurs on examination. The PMI was not markedly displaced on palpation. Extremities: Patient has bilateral radial pulses that are equal in intensity. There is no evidence cyanosis or clubbing. There was no evidence of significant peripheral edema bilaterally. Right arm in a sling. Bandages on right shoulder. Skin: There are no rashes noted on examination today. Results & Data Vital Signs (Past 12 Hours) Vital Signs Temp Pulse Pulse Pulse Resp BP Pulse Ox 07/08/25 16:15 36.7 C 55 L 18 111/59 L 92 07/08/25 14:30 36.5 C 55 L 15 130/80 93 07/08/25 13:30 56 L 16 113/76 96 07/08/25 13:06 61 07/08/25 13:00 96 07/08/25 12:36 56 L 07/08/25 12:30 56 L 17 118/77 96 07/08/25 12:00 07/08/25 12:00 36.7 C 60 16 104/65 94 07/08/25 11:30 59 L 23 122/61 92 07/08/25 11:00 60 18 123/62 93 07/08/25 10:45 60 21 112/56 L 92 07/08/25 10:30 60 19 105/65 92 07/08/25 10:15 62 18 113/66 91 07/08/25 10:00 63 17 93/64 L 92 07/08/25 09:50 62 18 110/71 91 07/08/25 09:40 66 19 101/65 92 07/08/25 09:30 36.5 C 66 22 111/57 L 92 07/08/25 09:20 69 14 114/64 92 07/08/25 09:10 73 21 114/46 L 92 07/08/25 09:00 74 26 H 130/88 93 07/08/25 08:50 78 23 131/78 94 07/08/25 08:44 36 C L 81 22 137/87 98 07/08/25 05:52 36.8 C 53 L 18 151/65 H 98 O2 Del Method O2 Flow Rate 07/08/25 16:15 Room Air 07/08/25 14:30 Room Air 07/08/25 13:30 Room Air 07/08/25 13:06 07/08/25 13:00 Nasal Cannula 2 07/08/25 12:36 07/08/25 12:30 Nasal Cannula 2 07/08/25 12:00 Nasal Cannula 2 07/08/25 12:00 Nasal Cannula 2 07/08/25 11:30 Nasal Cannula 2 07/08/25 11:00 Nasal Cannula 2 07/08/25 10:45 Nasal Cannula 2 07/08/25 10:30 Nasal Cannula 2 07/08/25 10:15 Nasal Cannula 2 07/08/25 10:00 Nasal Cannula 2 07/08/25 09:50 Nasal Cannula 2 07/08/25 09:40 Nasal Cannula 2 07/08/25 09:30 Nasal Cannula 2 07/08/25 09:20 Nasal Cannula 2 07/08/25 09:10 Nasal Cannula 2 07/08/25 09:00 Nasal Cannula 2 07/08/25 08:50 Oxymask 4 07/08/25 08:44 Oxymask 6 07/08/25 05:52 Room Air Laboratory Results Abnormal Lab Results 07/08/25 07/08/25 08:53 14:16 Sodium 138 Potassium 4.6 Chloride 104 Carbon Dioxide 28 Anion Gap 6 BUN 17 Creatinine 0.86 Est Cr Clr Drug Dosing 58.8 eGFR 72.18 BUN/Creatinine Ratio 19.8 Glucose 172 H Calcium 8.5 L Troponin I High Sens 3.8 TSH 4.545 H Free T4 0.73 Diagnostic Findings Chest x-ray obtained today suggested bilateral lower lobe pneumonia versus atelectasis. ECG Additional Comments: EKG dated 07/08/2025 at 1315 demonstrated sinus bradycardia. Otherwise normal. PG Care Time/CCT Total # of Minutes Spent Total Time Spent with Patient: Total time spent is greater than 50% in coordination of care (as documented) at patient's floor/unit and/or counseling patient: Coding Level of Care Code 73384 INT INP/OBS CARE 3/75MIN Diagnoses Bradycardia R00.1
[2025-07-08] MEDS: ALBUTEROL HFA 8 GM INHALER INH PRN (19:46)
[2025-07-08 20:15] VITALS: TEMP 97.7
[2025-07-08] MEDS: SENNA 8.6 MG TAB PO SCH (20:52)
[2025-07-08] MEDS: BACLOFEN 10 MG TAB PO SCH (20:52)
[2025-07-09 07:22] VITALS: O2SAT 92
--- NOTE | 2025-07-09 08:16 | XRay Report ---
EXAM: XR chest 1V portable CLINICAL HISTORY: RLL atelectasis TECHNIQUE: An X-ray image of the chest is obtained in AP projection. COMPARISON: No prior studies are available for comparison. FINDINGS: Pulmonary Parenchyma: Elevation of the right hemidiaphragm, nonspecific, could be due to atelectatic changes or other causes. No evidence of lobar consolidation or focal opacities. No evidence of pleural effusion or pleural thickening. Heart and Mediastinum: Heart size is limited on this projection. No mediastinal widening or masses. No hilar or mediastinal lymphadenopathy. Bony Thorax: Right total shoulder replacement was noted. Bony thorax appears intact without fractures. Soft Tissues: Soft tissues overlying the chest wall are unremarkable. IMPRESSION: Elevation of the right hemidiaphragm, nonspecific, could be due to atelectatic changes or other causes; further evaluation with CT if clinically warranted. Electronically signed by Madi Slaughter 07-09-2025 08:15 AM
[2025-07-09 08:31] LABS: Hematocrit (blood only) 35.5 % (37.0-47.0); Hemoglobin 11.7 g/dl (12.0-16.0); Mean Corpuscular Hemoglobin 30.5 pg (25.0-34.0); Mean Corpuscular Volume 92.4 fL (80.0-100.0); Platelet Count 244 K/uL (130-400); RDW Standard Deviation 50.7 fL (36.4-46.3); Red Blood Count 3.84 M/uL (4.20-5.40); White Blood Count 17.86 K/ul (4.8-10.8)
--- NOTE | 2025-07-09 08:47 | Orthopedic Progress Note ---
Date of Service July 09, 2025 Assessment & Plan (1) Status post reverse total replacement of right shoulder: Overall she is doing very well. She is not having any pain in the right shoulder. She will be seen by physical therapy today for ambulation and range of motion exercises. The weight training instructor did not think that the 6 seconds stop in her rhythm was anything to be concerned about. They think it was just a single event with the extubation. They are not requiring any further workup. I will rely on the hospitalist to check the rhythm overnight and determine that it is safe to proceed with discharge. From an orthopedic standpoint, she can be discharged to home today. Aristeo Foreman was seen and examined at bedside this morning. Overall she is doing very well. She is not any pain in the right shoulder. The nerve block is still in effect. She did not have any cardiac issues overnight. She was seen by the weight training instructor yesterday. She has no new complaints.. Review of Systems All systems reviewed & are unremarkable except as noted in HPI & below. Physical Exam On physical exam of the right shoulder, the dressing is clean and dry. The nerve block is still in effect. She cannot dorsiflex her wrist and she has numbness in her thumb.. Results & Data Results & Data Laboratory Results . Diagnostic Findings Postoperative x-rays of the right shoulder show the prosthesis to be in anatomic alignment without any evidence of fracture complication, or loosening.. PG Care Time/CCT Total # of Minutes Spent Total Time Spent with Patient: Total time spent is greater than 50% in coordination of care (as documented) at patient's floor/unit and/or counseling patient: Coding Level of Care Code 32910 Post Operative Follow-Up Diagnoses Status post reverse total replacement of right shoulder Z96.611
[2025-07-09 08:50] LABS: Anion Gap 9.0 (3-11); Blood Urea Nitrogen 28.0 mg/dl (6-23); Calcium 8.8 mg/dl (8.6-10.3); Carbon Dioxide 24.0 mmol/L (21-32); Chloride 103.0 mmol/L (98-107); Creatinine Clr Calc Pharmacy 41.1 ml/min; Glucose 111.0 mg/dl (70-99(Fasting)); Potassium 4.8 mmol/L (3.5-5.1); Sodium 136.0 mmol/L (136-145)
[2025-07-09] MEDS ORDERED: METOPROLOL SUCC 50MG EXT REL TAB PO SCH (09:00)
[2025-07-09] MEDS: LACTATED RINGER'S 500 ML IV ONE (09:48)
--- NOTE | 2025-07-09 11:12 | CT Scan Report ---
CT chest diagnostic wo con CT DOSE: 839.93 mGy.cm CLINICAL HISTORY: 70 years-old Female with abnormal cxr of RLL following shoulder surgery. Acute keerthi rtness of breath TECHNIQUE: Multiaxial CT images of the chest were performed without contrast. A dose lowering techni que was utilized adhering to the principles of ALARA. COMPARISON: Chest radiograph 07/09/2025, CT abdomen and pelvis 06/10/2025 FINDINGS: Unremarkable thyroid. Mediastinal lymphadenopathy includes a 1.4 x 2.0 cm right paratrachea l lymph node image 71 series 4. Calcified left hilar lymph nodes. Moderate right hemidiaphragmatic el evation redemonstrated. Heart is mildly enlarged without pericardial effusion. Mild to moderate coron shiv artery calcifications. No thoracic aortic aneurysm. Calcified granuloma the basal left lower lobe. Right basilar consolidation with air bronchograms. Add itional patchy multifocal peripheral groundglass opacities are noted within a multilobar and multi se gmental distribution bilaterally, right greater than left. No pneumothorax. Central airways are paten t. Reversed right shoulder arthroplasty. Expected postoperative soft tissue swelling with deep tissue air. Calcific granulomata of the spleen. Moderate-sized hiatal hernia. Left hepatic lobe cyst. IMPRESSION: 1. Mild patchy bilateral groundglass opacities are likely infectious or inflammatory. 2. Chronic right hemidiaphragm elevation with right basilar atelectasis 3. Nonspecific mediastinal lymphadenopathy may be reactive. Attention at follow-up recommended. 4. Postoperative changes associated with reverse right shoulder arthroplasty. 5. Moderate-sized hiatal hernia. ACT 112: Negative or not required by law. Electronically signed by: Heath Mora M.D. 07/09/2025 11:10 AM
[2025-07-09] MEDS: METOPROLOL SUCC 25MG EXT REL TAB PO SCH (11:22)
[2025-07-09 11:52] VITALS: BP 154/80; RESP 16
--- NOTE | 2025-07-09 12:04 | Hospitalist Progress Note ---
Date of Service July 09, 2025 Assessment & Plan (1) Rotator cuff arthropathy of right shoulder: (2) Bradycardia: (3) Hypertension: Plan This is a 70 year old female with past medical history of HTN, HLD, GERD who presented to the hospital for an elective shoulder surgery with Dr. Parisi on 07/08. #Bradycardia Following procedure, patient experienced 6 second pause on EKG & was given a dose of atropine. Since then pulse has been running 56-65 - continue to monitor on telemetry TSH mildly elevated at 4.545 w/ a normal Free T4 ---> recommend recheck in 4-6 weeks. CXR w/ b/l atelectasis w/ a repeat CXR 07/09 that did reveal elevation of right hemidiaphragm & CT scan was recommended. Chest CT: mild patchy b/l ground glass opacities infectious vs inflammatory; chronic right hemidiaphragm elevation w/ right basilar atelectasis; nonspecific mediastinal LAD may be reactive; moderate sized hiatal hernia. --> could consider repeat chest CT in 6 months to readdress mild LAD. reduce metoprolol succinate to 25mg q daily at home. Cardiology consulted - recommended return home Will require Holter monitor outpatient which can be arranged by PCP. --> has an upcoming office visit next week. #Rotator cuff arthropathy of right shoulder s/p right shoulder replacement w/ Dr. Parisi 07/08. DVT prophylaxis, Pain regimen, bowel regimen, PT/OT per primary team. #HTN - Continue metoprolol w/ hold parameters, hold Losartan #GERD - continue PPI #Mental health - Continue Cymbalta At this time, patient is medically stable for discharge. Admission and Anticipated Discharge Date Admission Date: July 08, 2025 Supervising Physician Co-Signing Physician Notes The patient was not seen by me. The chart was reviewed. Case discussed with RICHELLE Price. Agree with assessment and plan Subjective Kellen was seen and examined this morning. She reports she is feeling okay today. Denies any complaints. Physical Exam Constitutional: no acute distress Respiratory: normal respiratory effort, lungs clear to auscultation Cardiovascular: bradycardic Neurologic: PERRL, EOMI, accommodation nl, no face palsy, no dysarthria Psychiatric: A+Ox3, euthymic affect Results & Data Results & Data Vital Signs (Past 12 Hours) Vital Signs Temp Pulse Pulse Resp BP Pulse Ox O2 Del Method 07/09/25 11:41 36.5 C 54 L 16 154/80 H 92 Room Air 07/09/25 09:19 63 07/09/25 08:00 Room Air 07/09/25 07:21 36.5 C 59 L 18 119/74 92 Room Air 07/09/25 04:00 36.5 C 54 L 18 161/85 H 94 Room Air PG Care Time/CCT Total # of Minutes Spent Total Time Spent with Patient: Total time spent is greater than 50% in coordination of care (as documented) at patient's floor/unit and/or counseling patient: Coding Level of Care Code 92854 SUB INP/OBS CARE 3/50MIN Diagnoses Rotator cuff arthropathy of right shoulder M12.811 Bradycardia R00.1 Hypertension I10
[2025-07-09 12:33] VITALS: PULSE 63
== END 2025-07-09 13:04 | disposition home or self-care (01) ==
LOC: ASU 05:17 → 2N 05:17